=== PATIENT | female | born 1950 | race Caucasian/White ===

== ENCOUNTER 2017-08-11 06:06 | Day surgery (SDC) | payer OTHER, MEDICAID ==
[~2017-08-11] VITALS: Ht 154.9 cm; Wt 60.8 kg
[2017-08-11] MEDS ORDERED: LIDOCAINE 2% 100 MG/5 ML UJET TP ONE (07:30)
[2017-08-11] MEDS ORDERED: CALCIUM (08:05)
[2017-08-11] MEDS ORDERED: fentaNYL 0.05 MG/ML VIAL ONE (08:48)
[2017-08-11] MEDS ORDERED: MIDAZOLAM 2 MG/2 ML VIAL ONE (08:53)
[2017-08-11] MEDS ORDERED: MORPHINE SULFATE 2 MG/ML SYR IVP PRN (09:20)
[2017-08-11] MEDS ORDERED: MORPHINE SULFATE 2 MG/ML SYR IVP ONE (09:30)
[2017-08-11] MEDS ORDERED: fentaNYL 0.05 MG/ML VIAL IVP ONE (09:45)
[2017-08-11] MEDS ORDERED: [UNRECOGNIZED DRUG - OTHER] (11:04)
[2017-08-11] MEDS ORDERED: SYN.05 PO (11:04)
[2017-08-11] MEDS ORDERED: [UNRECOGNIZED DRUG - OTHER] (11:04)
[2017-08-11] MEDS ORDERED: PROP10TA28 PO (11:04)
== END 2017-08-11 10:28 | disposition home or self-care (01) ==
LOC: MDS 06:06 → MMU 06:25 → MDS 10:28
PROVIDERS: ATTEND Internal Medicine Gastroenterology
DX: K62.5 Hemorrhage of anus and rectum (principal); E11.9 Type 2 diabetes mellitus without complications; E07.9 Disorder of thyroid, unspecified; E66.3 Overweight; Z98.890 Other specified postprocedural states; Z79.899 Other long term (current) drug therapy
CPT/HCPCS: 45398; 82948; J2270; J3010; J2250

== ENCOUNTER 2018-07-19 16:29 | Inpatient (IN) | payer OTHER, MEDICAID ==
[~2018-07-19] VITALS: Ht 154.9 cm; Wt 59.0 kg
[~2018-07-19 16:29] MED LIST: CALCIUM; PROP10TA28 PO; SYN.05 PO; [UNRECOGNIZED DRUG - OTHER]; [UNRECOGNIZED DRUG - OTHER]
[2018-07-19] MEDS ORDERED: NACL 0.9% 1,000 ML IV SCH (16:40)
[2018-07-19 16:48] VITALS: BP 170/59
--- NOTE | 2018-07-19 16:53 | NUR ---
PT AMBULATES TO BED 10
[2018-07-19] MEDS ORDERED: AMLO10TA PO (16:59)
[2018-07-19] MEDS ORDERED: CAPT25TA10 PO (17:00)
--- NOTE | 2018-07-19 17:00 | NUR ---
PT REFERRED BY DR MARQUEZ FOR INTERMITTENT RECTAL BLEED/HEMORRHOIDS X 1 WEEK. PATIENT STATES PAIN OF 0610 AT THIS TIME; VSS; PATIENT POSITIONED FOR COMFORT; HOB ELEVATED; BEDRAILS UP X1; BED DOWN. ER MD MADE AWARE OF PT STATUS.
[2018-07-19] MEDS ORDERED: OMEP20TC12 PO (17:01)
[2018-07-19] MEDS ORDERED: TRAM50TA3 PO (17:04)
[2018-07-19 17:20] LABS: EOSINOPHILS # (AUTO) 0.1 K/uL (0-0.4); EOSINOPHILS % (AUTO) 5.3 % (0.0-4.0); HEMATOCRIT 23.9 % (36-48); HEMOGLOBIN 7.6 g/dL (12.0-16.0); LYMPHOCYTES # (AUTO) 0.2 K/uL (2.5-16.5); LYMPHOCYTES % (AUTO) 6.2 % (20.5-51.1); MEAN CORPUSCULAR HEMOGLOBIN 28 pg (27-31); MEAN CORPUSCULAR HGB CONC 32 g/dL (33-37); MEAN CORPUSCULAR VOLUME 89.1 fL (80-94); MONOCYTES # (AUTO) 0.3 K/uL (0.8-1.0); MONOCYTES % (AUTO) 10.7 % (1.7-9.3); NEUTROPHILS % (AUTO) 76.8 % (42.2-75.2); PLATELET COUNT (AUTO) 54 K/uL (140-450); RED BLOOD CELL COUNT(AUTO) 2.68 MIL/uL (4.20-5.40); RED CELL DISTRIBUTION WIDTH 18.6 % (11.6-13.7); WHITE BLOOD COUNT (AUTO) 2.6 K/uL (4.8-10.8)
[2018-07-19] MEDS ORDERED: FERR325E14 PO (17:27)
[2018-07-19] MEDS ORDERED: INSU100S54 SC (17:27)
[2018-07-19] MEDS ORDERED: CALC-575 PO (17:27)
[2018-07-19] MEDS ORDERED: MULT-1469 PO (17:27)
[2018-07-19] MEDS ORDERED: OSC500 PO (17:27)
[2018-07-19] MEDS ORDERED: LACT10SO60 PO (17:27)
[2018-07-19 17:28] LABS: ANION GAP 10.8 (8-16); CARBON DIOXIDE 28.2 mmol/L (21-32)
[2018-07-19] MEDS ORDERED: LEVEMIR SUBQ (17:31)
[2018-07-19 17:33] LABS: CREATININE 5.8 mg/dL (0.6-1.3)
[2018-07-19 17:34] LABS: PROTHROMBIN TIME 10.5 secs (10.8-13.4)
[2018-07-19 17:36] LABS: ALBUMIN 3.4 g/dL (3.4-5.0); TOTAL BILIRUBIN 0.5 mg/dL (0.0-1.0)
[2018-07-19] MEDS ORDERED: DOCUSATE SODIUM 100 MG GELCAP PO PRN (18:30)
[2018-07-19] MEDS ORDERED: HYDROcodone/APAP 5/325 MG 1 TAB TAB PO PRN (18:30)
[2018-07-19] MEDS ORDERED: ONDANSETRON 4 MG/2 ML VIAL IM/IVP PRN (18:30)
[2018-07-19] MEDS ORDERED: MORPHINE SULFATE 4 MG/ML SYR IVP PRN (18:30)
[2018-07-19] MEDS ORDERED: ZOLPIDEM 5 MG TAB PO PRN (18:30)
[2018-07-19] MEDS ORDERED: ACETAMINOPHEN 325 MG TAB PO PRN (18:30)
[2018-07-19] MEDS ORDERED: LORazepam 2 MG/ML VIAL IM/IVP PRN (18:30)
--- NOTE | 2018-07-19 18:30 | NUR ---
Patient will be admitted to care of DR. HINES. Admited to TELE. Will go to room 124B. Belongings list completed. Report to SHEREE SALINAS.
--- NOTE | 2018-07-19 18:38 | NUR ---
1828 PT TAKEN TO FLOOR BY ALYCIA ALTAMIRANO AND CIRO
--- NOTE | 2018-07-19 19:35 | NUR ---
RECEIVED PT FROM LUCILLE RN PT DANISH SPEAKER AAOX4 AMBULATES WITH CHEMICAL DEPENDENCY NURSE ON TELMETRY SR HL ON RT WRIST PATENT, MRSA NARES PROTOCOL TAKEN AND SENT TO LAB RELATIVES AT BED SIDE NOT ACTIVE BLEEDIG FROM RECTUM AT THIS TIME INITIAL ASSESSMENT DONE
[2018-07-19 20:00] VITALS: BP 165/65
[2018-07-19] MEDS ORDERED: DEXTROSE 50% 50 ML SYR IVP PRN (20:05)
[2018-07-19 20:59] LABS: AMYLASE 80 U/L (25-115); CHOL/HDL RATIO 2.9 (1-4.5); HDL CHOLESTEROL 60 mg/dL (40-60); LDL (CALC) 95 mg/dL (60-100); LIPASE 240 U/L (73-393); MAGNESIUM 2.6 mg/dL (1.8-2.4); PHOSPHORUS 5.6 mg/dL (2.5-4.9); THYROID STIMULATING HORMONE 7.07 uIU/mL (0.34-3.74); TRIGLYCERIDES 86 mg/dL (30-150)
[2018-07-19] MEDS: DEXT 5% /NACL 0.9% 1,000 ML IV SCH (21:00)
--- NOTE | 2018-07-19 21:30 | NUR ---
BLOOD SUGAR TEST 183 COVERAGE WITH HUMALOG SUBQ ON RT ARM FOLLOW PROTOCOL
[2018-07-19 21:40] LABS: LACTATE DEHYDROGENASE 224 U/L (81-234)
[2018-07-19] MEDS: INSULIN LISPRO SLIDING SCALE 100 UNITS/ML VIAL SUBQ PRN (21:49)
[2018-07-19] MEDS: BLOOD GLUCOSE MONITORING 1 DEV DEV FS SCH (21:56)
[2018-07-19] MEDS: DOCUSATE SODIUM 250 MG GELCAP PO SCH (21:57)
[2018-07-19] MEDS: CAPTOPRIL 25 MG TAB PO SCH (21:57)
[2018-07-19] MEDS: FERROUS SULFATE 325 MG TABEC PO SCH (21:58)
[2018-07-19] MEDS: PROPRANOLOL 20 MG TAB PO SCH (21:59)
[2018-07-19] MEDS: traMADol 50 MG TAB PO SCH (21:59)
[2018-07-19] MEDS ORDERED: FUROSEMIDE 20 MG/2 ML VIAL IVP SCH (23:00)
[2018-07-20] VITALS: BP 143/48
--- NOTE | 2018-07-20 | NUR ---
PT IS NPO NOT DITRESS NOTED REPOSITIONED Q2H NOT DISTRESS NOTED ON TELEMETRY SB
[2018-07-20 04:00] VITALS: BP 144/54
--- NOTE | 2018-07-20 04:00 | NUR ---
SPONGE BATH GIVEN LINEN CHANGED NOT DISTRESS NOTED ON TELMETRY SB
[2018-07-20] MEDS ORDERED: INFLUENZA VIRUS VACCINE QUAD 0.5 ML SYR IMVAC SCH ×2 (06:00→18:05)
[2018-07-20] MEDS: BLOOD GLUCOSE MONITORING 1 DEV DEV FS SCH ×4 (06:03→21:04)
--- NOTE | 2018-07-20 06:05 | NUR ---
PT NPO X MEDS, BLOOD SUGAR TEST 133
[2018-07-20] MEDS: LEVOTHYROXINE 0.05 MG TAB PO SCH (06:19)
[2018-07-20] MEDS ORDERED: PANTOPRAZOLE 40 MG TABEC PO SCH (06:30)
[2018-07-20 06:39] LABS: EOSINOPHILS # (AUTO) 0.2 K/uL (0-0.4); EOSINOPHILS % (AUTO) 6.4 % (0.0-4.0); HEMATOCRIT 22.5 % (36-48); HEMOGLOBIN 7.3 g/dL (12.0-16.0); LYMPHOCYTES # (AUTO) 0.2 K/uL (2.5-16.5); LYMPHOCYTES % (AUTO) 7.3 % (20.5-51.1); MEAN CORPUSCULAR HEMOGLOBIN 29 pg (27-31); MEAN CORPUSCULAR HGB CONC 33 g/dL (33-37); MEAN CORPUSCULAR VOLUME 89.7 fL (80-94); MONOCYTES # (AUTO) 0.3 K/uL (0.8-1.0); MONOCYTES % (AUTO) 13.2 % (1.7-9.3); NEUTROPHILS # (AUTO) 1.9 K/uL (1.8-7.7); NEUTROPHILS % (AUTO) 72.1 % (42.2-75.2); PLATELET COUNT (AUTO) 51 K/uL (140-450); RED CELL DISTRIBUTION WIDTH 18.9 % (11.6-13.7); WHITE BLOOD COUNT (AUTO) 2.6 K/uL (4.8-10.8)
[2018-07-20 06:54] LABS: MAGNESIUM 2.4 mg/dL (1.8-2.4); PHOSPHORUS 6.8 mg/dL (2.5-4.9)
--- NOTE | 2018-07-20 07:26 | NUR ---
REPORT RECEIVED FROM FAN ENGINE ENGINEER NURSE, PT SLEEPING QUIETLY IN BED IN NAD, RESP EVEN UNLABORED, SKIN WARM DRY COLOR WNL, AROUSES EASILY TO VOICE, DENIES PAIN OR DISCOMFORT, PLAN OF CARE REVIEWED, NO NEEDS AT THIS TIME, ALL SAFETY MEASURES IN PLACE, WILL CONTINUE TO MONITOR.
--- NOTE | 2018-07-20 07:40 | NUR ---
DR MEHTA CALLED TO GET PT CONDITION, [place] SQ [id number] ORDER RECEIVED.
[2018-07-20 07:48] LABS: ANION GAP 13.9 (8-16); CARBON DIOXIDE 27.4 mmol/L (21-32); POTASSIUM 4.3 mmol/L (3.5-5.1)
[2018-07-20 08:00] VITALS: BP 146/58
--- NOTE | 2018-07-20 08:00 | NUR ---
DR HINES AND MD TEAM AT BEDSIDE.
[2018-07-20 08:04] LABS: CREATININE 6.6 mg/dL (0.6-1.3)
--- NOTE | 2018-07-20 08:52 | NUR ---
PATIENT HAS BEEN SCREENED AND CATEGORIZED MODERATE NUTRITION RISK. PATIENT WILL BE SEEN WITHIN 3-5 DAYS OF ADMISSION. 07/22/18 07/24/[address]
[2018-07-20] MEDS: DOCUSATE SODIUM 250 MG GELCAP PO SCH ×2 (09:00→21:14)
[2018-07-20] MEDS: FERROUS SULFATE 325 MG TABEC PO SCH ×2 (09:00→21:15)
[2018-07-20] MEDS: PROPRANOLOL 20 MG TAB PO SCH ×2 (09:00→21:14)
[2018-07-20] MEDS ORDERED: LACTULOSE 20 GM/30 ML UDC PO PRN (09:00)
[2018-07-20] MEDS ORDERED: EPOETIN ALFA 10,000 UNITS/ML VIAL SUBQ SCH (09:00)
[2018-07-20] MEDS: traMADol 50 MG TAB PO SCH ×2 (09:02→21:12)
[2018-07-20] MEDS: CAPTOPRIL 25 MG TAB PO SCH ×2 (09:03→21:13)
[2018-07-20] MEDS: amLODIPine 5 MG TAB PO SCH (09:03)
[2018-07-20] MEDS: CALCIUM CARBONATE 500 MG TAB PO SCH (09:03)
[2018-07-20] MEDS: VIT-B COMP/VIT-C/FOLIC ACID 1 TAB PO SCH (09:04)
--- NOTE | 2018-07-20 09:17 | NUR ---
AM MEDS GIVEN, PT JAMES PILLS WELL, PROPRANOLOL HELD FOR DECREASED HR 58. PT DENIES ANY NEEDS, CALL GE WITHIN REACH, SIDE RAILS UP, WILL CONTINUE TO MONITOR. PT AWARE OF NEED FOR URINE SAMPLE. CUP AT BEDSIDE.
[2018-07-20 12:00] VITALS: BP 138/46
[2018-07-20] MEDS: INSULIN LISPRO SLIDING SCALE 100 UNITS/ML VIAL SUBQ PRN ×2 (12:21→21:07)
--- NOTE | 2018-07-20 12:21 | NUR ---
2 UNITS INSULIN GIVEN FOR BS 185. DAUGHTER AT BEDSIDE, DENIES ANY IMMEDIATE NEEDS WILL CONTINUE TO MONITOR
--- NOTE | 2018-07-20 14:14 | NUR ---
PT UP TO BATHROOM WITH MINIMAL ASSIST WITH STEADY GAIT, PT UNABLE TO URINATE AT THIS TIME.
--- NOTE | 2018-07-20 14:33 | NUR ---
AWAITING ON PLATELET TRANSFUSION, UNIT NOT HERE YET PER BLOOD BANK.
--- NOTE | 2018-07-20 14:50 | NUR ---
DR MARQUEZ AT BEDSIDE, PT TO REMAIN NPO, POSSIBLE SURGERY TONIGHT.
--- NOTE | 2018-07-20 15:27 | NUR ---
STRAIGHT CATH WITH 14F FOR URINE SAMPLE, ONLY 4-5ML CLEAR YELLOW URINE COLLECTED AND SENT TO LAB.
[2018-07-20 15:55] LABS: APPEARANCE,URINE CLEAR (CLEAR); BILIRUBIN,URINE NEGATIVE (NEGATIVE); BLOOD, URINE 2+ (NEGATIVE); COLOR,URINE YELLOW (YELLOW); LEUKOCYTE ESTERASE ,URINE 1+ (NEGATIVE); NITRITE, URINE NEGATIVE (NEGATIVE); UGLUCOSE 1+ (NEGATIVE)
[2018-07-20 16:00] VITALS: BP 140/59
[2018-07-20 16:21] LABS: RBC,URINE 3-10 (FEW) /HPF (0-5); WBC,URINE 16-25 (MOD) /HPF (0-5)
[2018-07-20 16:22] LABS: URINE AMORPHOUS URATE 1+ /HPF (None Seen)
--- NOTE | 2018-07-20 17:30 | NUR ---
PLATELET TRANSFUSION STARTED AT THIS TIME, UNIT VERIFIED WITH 2 RNS, WILL MONITOR CLOSELY FOR REACTIONS.
--- NOTE | 2018-07-20 17:45 | NUR ---
NO REACTION NOTED, PLATELET TRANSFUSION CONTINUES.
--- NOTE | 2018-07-20 18:15 | NUR ---
VSS, NO REACTIONS NOTED, WILL CONTINUE WITH TRANSFUSION, DAUGHTER AT BEDSIDE.
--- NOTE | 2018-07-20 19:15 | NUR ---
PLATELET TRANSFUSION COMPLETED, NO S/S OF REACTIONS NOTED, PT JAMES DINNER WELL, NO N/V, REPORTS ONLY OCCASIONAL MINIMAL RECTAL BLEED, NO ACTIVE BLEEDING NOTED AT THIS TIME.
--- NOTE | 2018-07-20 19:22 | NUR ---
REPORT GIVENT O PRIVACY MANAGER NURSE, PT IN STABLE CONDITION.
--- NOTE | 2018-07-20 19:25 | NUR ---
RECEIVED PT FROM JULIENNE RN PT AAOX4 LUXEMBOURGISH SPEAKER AMBULATES WITH ASSISTANCE DENIES ANY PAIN OR DISCOMFORT ON TELEMETRY SR IV ON RT WRIST INFUSING WELL ,DIALISYS ACCESS ONL EFT UA RELATIVES AT BED SIDE INITIAL ASSESSMENT DONE
[2018-07-20 20:00] VITALS: BP 146/53
[2018-07-20] MEDS: DEXT 5% /NACL 0.9% 1,000 ML IV SCH (21:00)
[2018-07-20 21:21] LABS: BASOPHILS % (AUTO) 0.8 % (0.0-2.0); EOSINOPHILS # (AUTO) 0.1 K/uL (0-0.4); EOSINOPHILS % (AUTO) 4.5 % (0.0-4.0); HEMOGLOBIN 7.3 g/dL (12.0-16.0); LYMPHOCYTES # (AUTO) 0.2 K/uL (2.5-16.5); LYMPHOCYTES % (AUTO) 7.3 % (20.5-51.1); MEAN CORPUSCULAR HEMOGLOBIN 29 pg (27-31); MEAN CORPUSCULAR HGB CONC 32 g/dL (33-37); MEAN CORPUSCULAR VOLUME 90.4 fL (80-94); MONOCYTES # (AUTO) 0.3 K/uL (0.8-1.0); MONOCYTES % (AUTO) 10.2 % (1.7-9.3); NEUTROPHILS # (AUTO) 2.4 K/uL (1.8-7.7); NEUTROPHILS % (AUTO) 77.2 % (42.2-75.2); PLATELET COUNT (AUTO) 58 K/uL (140-450); RED BLOOD CELL COUNT(AUTO) 2.55 MIL/uL (4.20-5.40); RED CELL DISTRIBUTION WIDTH 18.7 % (11.6-13.7); WHITE BLOOD COUNT (AUTO) 3.1 K/uL (4.8-10.8)
--- NOTE | 2018-07-20 21:30 | NUR ---
BLOOD SUGAR TEST 278 COVERAGE WIT 6 UNIS SUB Q HUMALOG FOLLOWING [id number]
[2018-07-21] VITALS: BP 148/83
--- NOTE | 2018-07-21 | NUR ---
PT FEEL BETTER STRONG TO AMBULATES TO THE RESTROOM AND SHE HAD ONE BM DENIES ANY BLEEDING OR PAIN
[2018-07-21 04:00] VITALS: BP 141/58
--- NOTE | 2018-07-21 04:00 | NUR ---
SPONGE BATH GIVEN LINEN CHANGED PT COPERATIVE DENIES ANY PAIN OR DISCOMFORT A THIS TIME
[2018-07-21] MEDS: LEVOTHYROXINE 0.05 MG TAB PO SCH (06:33)
[2018-07-21] MEDS: BLOOD GLUCOSE MONITORING 1 DEV DEV FS SCH ×4 (06:34→21:00)
--- NOTE | 2018-07-21 06:34 | NUR ---
PT PETE STINEZ BLOOD SUGAR TEST 142
[2018-07-21 06:39] LABS: BASOPHILS % (AUTO) 1.1 % (0.0-2.0); EOSINOPHILS # (AUTO) 0.2 K/uL (0-0.4); EOSINOPHILS % (AUTO) 6.8 % (0.0-4.0); HEMATOCRIT 23.2 % (36-48); HEMOGLOBIN 7.5 g/dL (12.0-16.0); LYMPHOCYTES # (AUTO) 0.3 K/uL (2.5-16.5); MEAN CORPUSCULAR HEMOGLOBIN 29 pg (27-31); MEAN CORPUSCULAR HGB CONC 32 g/dL (33-37); MEAN CORPUSCULAR VOLUME 89.5 fL (80-94); MONOCYTES # (AUTO) 0.4 K/uL (0.8-1.0); MONOCYTES % (AUTO) 12.6 % (1.7-9.3); NEUTROPHILS # (AUTO) 2.3 K/uL (1.8-7.7); NEUTROPHILS % (AUTO) 71.5 % (42.2-75.2); PLATELET COUNT (AUTO) 61 K/uL (140-450); RED BLOOD CELL COUNT(AUTO) 2.59 MIL/uL (4.20-5.40); RED CELL DISTRIBUTION WIDTH 18.7 % (11.6-13.7); WHITE BLOOD COUNT (AUTO) 3.3 K/uL (4.8-10.8)
[2018-07-21] MEDS ORDERED: cefTRIAXone 1,000 MG VIAL ONE (06:45)
[2018-07-21 06:48] LABS: CARBON DIOXIDE 24.1 mmol/L (21-32); POTASSIUM 5.1 mmol/L (3.5-5.1)
[2018-07-21 06:55] LABS: MAGNESIUM 2.6 mg/dL (1.8-2.4); PHOSPHORUS 7.3 mg/dL (2.5-4.9)
[2018-07-21 07:08] LABS: CREATININE 7.9 mg/dL (0.6-1.3)
[2018-07-21] MEDS ORDERED: LACTULOSE 20 GM/30 ML UDC PO PRN (07:10)
--- NOTE | 2018-07-21 07:22 | NUR ---
REPORT RECEIVED FROM ASSISTANT BRAND MANAGER NURSE, PT SLEEPING QUIETLY IN NAD, RESP EVEN UNLABORED ON RA, SKIN WARM DRY COLOR WNL, PT REMAINS ON LANDING SIGNAL OFFICER, AROUSES EASILY, DENIES PAIN OR DISCOMFORT, POC REVIEWED, ALL SAFETY MEASURES IN PLACE, WILL CONTINUE TO MONITOR.
[2018-07-21 08:00] VITALS: BP 129/57
[2018-07-21 08:23] LABS: T4 (THYROXINE) 8.4 ug/dL (4.5-12.0)
[2018-07-21 08:23] LABS: TRANSFERRIN 203 mg/dL (200-370)
[2018-07-21] MEDS ORDERED: CALCIUM ACETATE 667 MG TAB PO SCH (09:00)
[2018-07-21] MEDS: amLODIPine 5 MG TAB PO SCH (09:00)
[2018-07-21] MEDS: PROPRANOLOL 20 MG TAB PO SCH ×2 (09:00→20:37)
[2018-07-21] MEDS: CAPTOPRIL 25 MG TAB PO SCH ×2 (09:00→20:37)
[2018-07-21] MEDS: VIT-B COMP/VIT-C/FOLIC ACID 1 TAB PO SCH (09:12)
[2018-07-21] MEDS: DOCUSATE SODIUM 250 MG GELCAP PO SCH ×2 (09:12→20:36)
[2018-07-21] MEDS: FERROUS SULFATE 325 MG TABEC PO SCH ×2 (09:12→21:03)
[2018-07-21] MEDS: traMADol 50 MG TAB PO SCH ×2 (09:13→20:37)
[2018-07-21] MEDS: CALCIUM CARBONATE 500 MG TAB PO SCH (09:13)
[2018-07-21] MEDS: FAMOTIDINE 20 MG TAB PO SCH (09:14)
[2018-07-21] MEDS: INSULIN LANTUS 100 UNITS/ML 10 ML VIAL SUBQ SCH (09:15)
--- NOTE | 2018-07-21 10:30 | NUR ---
PT WALKING AROUND HALLWAY WITH PT
[2018-07-21] MEDS: CALCIUM ACETATE 667 MG TAB PO SCH ×2 (11:26→17:14)
[2018-07-21 12:00] VITALS: BP 121/62
[2018-07-21] MEDS: INSULIN LISPRO SLIDING SCALE 100 UNITS/ML VIAL SUBQ PRN ×3 (12:43→21:03)
--- NOTE | 2018-07-21 13:30 | NUR ---
DIALYSIS AT BEDSIDE
[2018-07-21 16:00] VITALS: BP 156/67
[2018-07-21] MEDS: DEXT 5% /NACL 0.9% 1,000 ML IV SCH (16:41)
--- NOTE | 2018-07-21 17:05 | NUR ---
DIALYSIS DONE, 2000 ML TAKEN OUT PER ROBEL DIALYSIS NURSE.
--- NOTE | 2018-07-21 17:15 | NUR ---
20G PIV CLOTTED, UNABLE TO FLUSH, NEW IV 22G STARTED TO RIGHT FA, PT JAMES WELL
--- NOTE | 2018-07-21 19:20 | NUR ---
RECEIVED REPORT FROM AM RN IN BED SLEEPING. WOKE UP EASILY WHEN TOUCHED. AFEBRILE. VITAL SIGNS TAKEN. NO SOB. NO DELOR PER PT. IVF SITE TO RIGHT FOREARM INTACT AND WITH GOOD BLOOD RETURN. HEMODIALYSIS DONE TODAY. LEFT AV SHUNT INTACT DRESSING AND NO NOTED BLEEDING. TELEMETRY MONITORING. CALL LIGHT WITH IN REACH. EXPLAINED TO HER TO USE IT IN CASE SHE NEEDS SOMETHING. BED ALARM ON.
--- NOTE | 2018-07-21 19:25 | NUR ---
REPORT GIVEN TO ASBESTOS BRAKE LINING FINISHER HELPER NURSE, PT IN STABLE CONDITION.
--- NOTE | 2018-07-21 19:50 | NUR ---
DAUGHTER AT BEDSIDE AT THIS TIME. EXPLAINED PLANS OF CARE FOR THE NIGHT WITH HER. DAUGHTER EXPLAINED WELL TO PT. NO COMPLAINTS DONE.
[2018-07-21 20:33] VITALS: BP 175/60
--- NOTE | 2018-07-21 22:00 | NUR ---
PT.S FAMILY MEMBERS IN HERE VISITING. NO COMPLAINTS DONE. PT. IS BEING FED BY VISITORS. PT. EATING WELL AND SMILING. DENIES DOLOR. RE-ORIENTED HER FAMILY MEMBER ABOUT THE USE OF CALL LIGHT AND RE-EXPLAINED TO HER BY FAMILY IN [place]. "OK" .
[2018-07-22 00:26] VITALS: BP 119/65
--- NOTE | 2018-07-22 00:28 | NUR ---
SLEEPING AT THIS TIME. WOKE UP EASILY WHEN VITAL SIGNS WERE TAKEN. DENIES PAIN. "NO DOLOR". NO RESTLESSNESS NOTED. CALL LIGHT WITHIN REACH.
[2018-07-22 04:43] VITALS: BP 160/57
--- NOTE | 2018-07-22 04:45 | NUR ---
LSEPT WELL THIS SHIFT. NO PAIN COMPLAINTS DONE.
[2018-07-22] MEDS: BLOOD GLUCOSE MONITORING 1 DEV DEV FS SCH ×2 (05:21→12:23)
[2018-07-22] MEDS: LEVOTHYROXINE 0.05 MG TAB PO SCH (06:46)
[2018-07-22 07:22] LABS: HEMATOCRIT 24.1 % (36-48); HEMOGLOBIN 7.7 g/dL (12.0-16.0); MEAN CORPUSCULAR HEMOGLOBIN 29 pg (27-31); MEAN CORPUSCULAR HGB CONC 32 g/dL (33-37); MEAN CORPUSCULAR VOLUME 90.1 fL (80-94); PLATELET COUNT (AUTO) 62 K/uL (140-450); RED BLOOD CELL COUNT(AUTO) 2.67 MIL/uL (4.20-5.40); RED CELL DISTRIBUTION WIDTH 17.6 % (11.6-13.7); WHITE BLOOD COUNT (AUTO) 2.6 K/uL (4.8-10.8)
[2018-07-22 07:23] LABS: BASOPHILS % (AUTO) 0.4 % (0.0-2.0); EOSINOPHILS # (AUTO) 0.2 K/uL (0-0.4); EOSINOPHILS % (AUTO) 6.9 % (0.0-4.0); LYMPHOCYTES # (AUTO) 0.3 K/uL (2.5-16.5); LYMPHOCYTES % (AUTO) 12.7 % (20.5-51.1); MONOCYTES # (AUTO) 0.3 K/uL (0.8-1.0); MONOCYTES % (AUTO) 12.9 % (1.7-9.3); NEUTROPHILS # (AUTO) 1.8 K/uL (1.8-7.7); NEUTROPHILS % (AUTO) 67.1 % (42.2-75.2)
--- NOTE | 2018-07-22 07:23 | NUR ---
PT. AWAKE AT THIS TIME. ENDORSED TO THE AM RN FOR CONTINUITY OF CARE. NO COMPLAINTS DONE. SLEPT WELL THIS SHIFT. ON TELEMETRY MONITORING. NEEDS ANTICIPATED AND MET.
--- NOTE | 2018-07-22 07:24 | NUR ---
RECEIVED BEDSIDE REPORT FROM PM SHIFT NURSE. PT AWAKE, VERBAL, RESPIRATIONS EVEN & UNLABORED. CALL LIGHT WITHIN REACH.
[2018-07-22 07:29] LABS: CARBON DIOXIDE 27.8 mmol/L (21-32); POTASSIUM 3.8 mmol/L (3.5-5.1)
[2018-07-22 07:30] LABS: CREATININE 6.1 mg/dL (0.6-1.3)
[2018-07-22 07:39] LABS: MAGNESIUM 2.2 mg/dL (1.8-2.4)
[2018-07-22 08:00] VITALS: BP 171/69
[2018-07-22] MEDS: FERROUS SULFATE 325 MG TABEC PO SCH (08:24)
[2018-07-22] MEDS: CAPTOPRIL 25 MG TAB PO SCH (08:24)
[2018-07-22] MEDS: VIT-B COMP/VIT-C/FOLIC ACID 1 TAB PO SCH (08:24)
[2018-07-22] MEDS: FAMOTIDINE 20 MG TAB PO SCH (08:24)
[2018-07-22] MEDS: PROPRANOLOL 20 MG TAB PO SCH (08:25)
[2018-07-22] MEDS: traMADol 50 MG TAB PO SCH (08:25)
[2018-07-22] MEDS: CALCIUM ACETATE 667 MG TAB PO SCH (08:25)
[2018-07-22] MEDS: CALCIUM CARBONATE 500 MG TAB PO SCH (08:25)
[2018-07-22] MEDS: DOCUSATE SODIUM 250 MG GELCAP PO SCH (08:25)
[2018-07-22] MEDS: amLODIPine 5 MG TAB PO SCH (08:26)
[2018-07-22] MEDS: INSULIN LANTUS 100 UNITS/ML 10 ML VIAL SUBQ SCH (08:28)
--- NOTE | 2018-07-22 09:30 | NUR ---
PT SITTING UP IN BED, ALERT, VERBAL, DENIES ANY PAIN, NO SIGNS OF DISTRESS. RIGHT ARM IV SITE INTACT & ASYMPTOMATIC. CALL LIGHT WITHIN REACH.
--- NOTE | 2018-07-22 11:15 | NUR ---
SPOKE TO LEORA (DAUGHTER) ON THE PHONE RE: DISCHARGE ORDER. PER LEORA, SHE WILL COME TO [facility] REPRESENTATIVE PT VIA PRIVATE CAR. PT SITTING UP IN BED, WATCHING TV, NO SIGNS OF DISTRESS, RESPIRATIONS EVEN & UNLABORED. CALL LIGHT WITHIN REACH.
[2018-07-22] MEDS ORDERED: SULF-58 PO ×2 (11:33→11:44)
[2018-07-22] MEDS: INSULIN LISPRO SLIDING SCALE 100 UNITS/ML VIAL SUBQ PRN (12:17)
--- NOTE | 2018-07-22 12:45 | NUR ---
PT'S DAUGHTER LEORA ARRIVED, WENT OVER DISCHARGE INSTRUCTIONS WITH PT & DAUGHTER. ALL BELONGINGS WITH LEORA. ACCOMPANIED PT IN WHEELCHAIR TO FRONT LOBBY. PT ABLE TO AMB FROM WHEELCHAIR TO CAR WITH STEADY GAIT. PT STABLE UPON DISCHARGE.
== END 2018-07-22 12:45 | disposition home or self-care (01) | DRG 393 ==
LOC: MED 16:29 → MTU 18:04
PROVIDERS: ADMIT General Practice; ATTEND General Practice
PROC: 30233R1 Transfusion of Nonautologous Platelets into Peripheral Vein, Percutaneous Approach (ICD-10-PCS; 2018-07-20)
PROC: 5A1D70Z Performance of Urinary Filtration, Intermittent, Less than 6 Hours Per Day (ICD-10-PCS; principal; 2018-07-21)
PROC: 3E0234Z Introduction of Serum, Toxoid and Vaccine into Muscle, Percutaneous Approach (ICD-10-PCS; 2018-07-21)
DX: K64.9 Unspecified hemorrhoids (principal); N18.6 End stage renal disease; I50.43 Acute on chronic combined systolic (congestive) and diastolic (congestive) heart failure; N17.0 Acute kidney failure with tubular necrosis; N39.0 Urinary tract infection, site not specified; K76.6 Portal hypertension; I13.2 Hypertensive heart and chronic kidney disease with heart failure and with stage 5 chronic kidney disease, or end stage renal disease; D61.818 Other pancytopenia; K21.9 Gastro-esophageal reflux disease without esophagitis; E11.65 Type 2 diabetes mellitus with hyperglycemia; E03.9 Hypothyroidism, unspecified; E83.39 Other disorders of phosphorus metabolism; E83.51 Hypocalcemia; E11.22 Type 2 diabetes mellitus with diabetic chronic kidney disease; K70.30 Alcoholic cirrhosis of liver without ascites; M81.0 Age-related osteoporosis without current pathological fracture; Z23 Encounter for immunization; Z79.4 Long term (current) use of insulin; Z99.2 Dependence on renal dialysis; Z79.899 Other long term (current) drug therapy; Z90.49 Acquired absence of other specified parts of digestive tract; Z83.3 Family history of diabetes mellitus; Z82.49 Family history of ischemic heart disease and other diseases of the circulatory system; Z87.891 Personal history of nicotine dependence
CPT/HCPCS: 36415; 71045; 74018; 76705; 80048; 80053; 81001; 82140; 82150; 82550; 82607; 82746; 82948; 83036; 83540; 83605; 83615; 83690; 83735; 83880; 84100; 84134; 84436; 84443; 85025; 85045; 85610; 85730; 86886; 86900; 86901; 87040; 87081; 87086; 90658; 93005; 99285; C1758; G0482; J0696; J0885; J1815; J1940; J7042; J7060; P9035; Q0092

== ENCOUNTER 2018-11-08 07:22 | Inpatient (IN) | payer OTHER, MEDICAID ==
[~2018-11-08] VITALS: Ht 157.5 cm; Wt 64.4 kg
[~2018-11-08 07:22] MED LIST changes: +AMLO10TA PO; +CALC-575 PO; -CALCIUM; +CAPT25TA10 PO; +FERR325E14 PO; +INSU100S54 SC; +LACT10SO60 PO; +LEVEMIR SUBQ; +MULT-1469 PO; +OMEP20TC12 PO; +OSC500 PO; +SULF-58 PO; +TRAM50TA3 PO; -[UNRECOGNIZED DRUG - OTHER]; -[UNRECOGNIZED DRUG - OTHER]
--- NOTE | 2018-11-08 07:24 | NUR ---
PT BIBA ALS TO BED 10
[2018-11-08 07:25] VITALS: BP 186/81
--- NOTE | 2018-11-08 07:47 | NUR ---
PER [facility] UPON ARRIVAL AT [facility] PT WAS ON CONTINUED CPR AFTER ABOUT ABOUT 2 HOURS ON DIALYSIS AND CPR CONTINUED BY EMS FOR APPROXIMATELY 2 MINUTES. NO MEDICATION GIVEN. PT UNABLE TO ANSWER QUESTION. PT SQUIRMING IN BED AND MOANING. BLOOD PRESSURE ELEVATED. OTHER VITALS WNL. DIALYSIS SHUNT CLAMPED. IV ACCESS ON RIGHT HAND, 20G. BELLY DISTENDED; UNABLE TO VERBALIZE ANY PAIN. HOB ELEVATED; BEDRAILS UP X2; BED DOWN. ER MD MADE AWARE OF PT STATUS. HX; DM, HTN, CHF, CIRRHOSIS, PEPTIC ULCER DZ, DEPRESSION, ANEMIA RX; CAPTORPIL, PROPRANOLOL, AMLOPDIPINE, OMEPRAZOL
[2018-11-08] MEDS ORDERED: MORPHINE SULFATE 4 MG/ML SYR IVP ONE ×2 (08:05→09:55)
--- NOTE | 2018-11-08 08:19 | NUR ---
XRAY AT BEDSIDE
[2018-11-08 08:42] LABS: BASOPHILS % (AUTO) 0.4 % (0.0-2.0); EOSINOPHILS # (AUTO) 0.1 K/uL (0-0.4); EOSINOPHILS % (AUTO) 2.6 % (0.0-4.0); HEMATOCRIT 30.7 % (36-48); HEMOGLOBIN 9.7 g/dL (12.0-16.0); LYMPHOCYTES % (AUTO) 1.2 % (20.5-51.1); MEAN CORPUSCULAR HEMOGLOBIN 29 pg (27-31); MEAN CORPUSCULAR HGB CONC 32 g/dL (33-37); MEAN CORPUSCULAR VOLUME 91.2 fL (80-94); MONOCYTES % (AUTO) 1.2 % (1.7-9.3); NEUTROPHILS # (AUTO) 3.7 K/uL (1.8-7.7); NEUTROPHILS % (AUTO) 94.6 % (42.2-75.2); PLATELET COUNT (AUTO) 59 K/uL (140-450); RED BLOOD CELL COUNT(AUTO) 3.36 MIL/uL (4.20-5.40); RED CELL DISTRIBUTION WIDTH 19.7 % (11.6-13.7); WHITE BLOOD COUNT (AUTO) 3.9 K/uL (4.8-10.8)
[2018-11-08 08:49] LABS: ANION GAP 13.2 (8-16); CARBON DIOXIDE 28.9 mmol/L (21-32); POTASSIUM 4.1 mmol/L (3.5-5.1)
[2018-11-08 08:50] LABS: CREATININE 4.3 mg/dL (0.6-1.3)
[2018-11-08 08:54] LABS: ALBUMIN 3.4 g/dL (3.4-5.0)
[2018-11-08] MEDS ORDERED: ONDANSETRON 4 MG/2 ML VIAL IM/IVP PRN (09:55)
[2018-11-08] MEDS ORDERED: DOCUSATE SODIUM 100 MG GELCAP PO PRN (09:55)
[2018-11-08] MEDS ORDERED: HYDROcodone/APAP 7.5/325 MG 1 TAB PO PRN (09:55)
[2018-11-08] MEDS ORDERED: ACETAMINOPHEN 325 MG TAB PO PRN (09:55)
--- NOTE | 2018-11-08 10:00 | NUR ---
PT COMPLAINING OF CHEST PAIN. ED MD MADE AWARE. TO SEE PT.
[2018-11-08 10:19] LABS: PROTHROMBIN TIME 11.6 secs (10.8-13.4)
[2018-11-08 10:28] LABS: CHOL/HDL RATIO 2.6 (1-4.5); PHOSPHORUS 4.5 mg/dL (2.5-4.9); THYROID STIMULATING HORMONE 3.46 uIU/mL (0.34-3.74)
[2018-11-08] MEDS ORDERED: NACL 0.9% 1,000 ML IV SCH (10:30)
--- NOTE | 2018-11-08 10:32 | NUR ---
PT TAKEN TO TELE FLOOR BY SHEREE BARTON
[2018-11-08 10:40] VITALS: BP 162/66
--- NOTE | 2018-11-08 10:40 | NUR ---
RECEIVED REPORT FROM ED NURSE. PT C/O OF CHEST PAIN IN ED. NO COMPLAINT OF CHEST PAIN ON ARRIVAL TO UNIT. PT IS AAOX3, DAUGHTER AT BEDSIDE. SKIN IS INTACT WITH SCABBED OVER SCRATCHES NOTED ALL AROUND BODY. PT STATES SHE GETS ITCHY DURING DIALYSIS. PT TOO WEAK TO AMBULATE TO BED SO WE TRANSFERED HER OVER. MRSA COLLECTED AND TAKEN TO LAB. VITAL SIGNS STABLE. R HAND 20G INTACT AND PATENT. PT VERY SLEEPY FROM MORPHINE GIVEN IN ED. WILL CONTINUE TO MONITOR PT. BED IN LOW POSITION, CALL LIGHT WITHIN REACH. FALL RISK SIGN POSTED, GOWN ON.
--- NOTE | 2018-11-08 10:46 | NUR ---
Patient will be admitted to care of DR. HINES. Admited to TELE. Will go to room 108B. Belongings list completed. Report to SHEREE.
[2018-11-08] MEDS ORDERED: hydrALAZINE 20 MG/ML VIAL IVP PRN (11:00)
[2018-11-08] MEDS ORDERED: amLODIPine 5 MG TAB PO SCH (11:20)
[2018-11-08] MEDS ORDERED: CALCIUM CARBONATE 500 MG TAB PO SCH (11:22)
[2018-11-08] MEDS ORDERED: LEVOTHYROXINE 0.05 MG TAB PO SCH (11:23)
[2018-11-08 12:00] VITALS: BP 133/51
[2018-11-08] MEDS: BLOOD GLUCOSE MONITORING 1 DEV DEV FS SCH ×3 (12:15→21:22)
[2018-11-08] MEDS: INSULIN LISPRO SLIDING SCALE 100 UNITS/ML VIAL SUBQ PRN (12:31)
--- NOTE | 2018-11-08 12:31 | NUR ---
PT IN BED SLEEPING WITH DAUGHTER AT BEDSIDE. NO SIGNS OF PAIN OR DISTRESS NOTED. WILL CONTINUE TO MONITOR.
[2018-11-08 16:00] VITALS: BP 157/61
[2018-11-08] MEDS: DEXTROSE 50% 50 ML SYR IVP PRN (16:21)
--- NOTE | 2018-11-08 16:29 | NUR ---
PT BLOOD SUGAR READING WAS 57. DEXTROSE 50ML WAS GIVEN PER MD ORDERS. WILL REASSESS IN 15MINS.
--- NOTE | 2018-11-08 16:34 | NUR ---
NOTIFIED OF PT DROP IN SUGAR AND THEN ELEVATION WHEN REASSESSED. PT BS AT 162. DR JONAS SAID TO NOT GIVE ANYTHING AND WAIT TILL PT HAS NEXT MEAL.
--- NOTE | 2018-11-08 18:36 | NUR ---
PT RESTING IN BED. ALL NEEDS MET AT THIS TIME. WILL CONTINUE TO ROUND FREQUENTLY.
--- NOTE | 2018-11-08 19:39 | NUR ---
ENDORSED PT TOT MAT MAN FOR CONTINUITY OF CARE. PT IN STABLE CONDITION AT THIS TIME.
--- NOTE | 2018-11-08 19:40 | NUR ---
RECEIVED REPORT FROM AM SHIFT NO COMPLAINT OF CHEST PAIN PT IS AAOX3, DAUGHTER AT BEDSIDE. SKIN IS INTACT WITH SCABBED OVER SCRATCHES NOTED ALL AROUND BODY. PT STATES SHE GETS ITCHY DURING DIALYSIS. R HAND 20G INTACT AND PATENT. PT VERY SLEEPY . BED IN LOW POSITION, CALL LIGHT WITHIN REACH. FALL RISK PRECAUTION.WILL CONTINUE TO MONITOR PT.
[2018-11-08 20:00] VITALS: BP_SYST 109; BP_SYST 155; BP_DIAS 56; BP_DIAS 69
[2018-11-08] MEDS ORDERED: INSULIN LANTUS 100 UNITS/ML 10 ML VIAL SUBQ SCH ×2 (21:00)
[2018-11-08] MEDS: CAPTOPRIL 25 MG TAB PO SCH (21:00)
--- NOTE | 2018-11-08 21:22 | NUR ---
TOOK BS RESULT 172 MG/DL. PT DID NOT TAKE ANY FOOD ONLY WATER ER DAUGHTER. NO HUMALOG INSULIN NOR LANTUS GIVEN FOR TONIGHT ONLY. DR. YEUNG.
[2018-11-08] MEDS: HYDROCORTISONE 2.5% CRM 30 GM TUBE TP SCH (21:38)
[2018-11-08] MEDS: PROPRANOLOL 20 MG TAB PO SCH (21:39)
--- NOTE | 2018-11-08 21:39 | NUR ---
CAPOTEN NOT GIVEN DUE TO BP= 109/69. FOR DIALYSI. FF UP W/ DIALYSIS NURSE AND SHE SAID SHE WILL BE HERE AT 10'30PM
--- NOTE | 2018-11-08 21:40 | NUR ---
CAPOTEN NOT GIVEN.DR. YEUNG
--- NOTE | 2018-11-08 23:10 | NUR ---
DIALYSIS NURSE ARRIVED, W/ ONGOING DIALYSIS.
[2018-11-08] MEDS: DEXT 5% /NACL 0.9% 1,000 ML IV SCH (23:30)
[2018-11-09] VITALS: BP 155/56
--- NOTE | 2018-11-09 01:50 | NUR ---
DIALYSIS DONE , 2.8 LITERS TAKEN OUT. LAST PB-154/54 AND TEMP=99.5
[2018-11-09 04:00] VITALS: BP 146/54
[2018-11-09] MEDS: BLOOD GLUCOSE MONITORING 1 DEV DEV FS SCH ×4 (06:15→20:38)
[2018-11-09] MEDS: INSULIN LISPRO SLIDING SCALE 100 UNITS/ML VIAL SUBQ PRN ×2 (06:15→12:30)
[2018-11-09] MEDS: LEVOTHYROXINE 0.05 MG TAB PO SCH (06:30)
--- NOTE | 2018-11-09 07:12 | NUR ---
ENDORSED PT TO AM SHIFT PT RESTING IN BED, IN STABLE CONDITION
--- NOTE | 2018-11-09 07:15 | NUR ---
RECEIVED REPORT FROM GAS PLANT DISPATCHER AT BEDSIDE. PT IS AAOX3, SKIN IS INTACT, PT SCRATCHES NOTED ALL AROUND BODY. IV TO R HAND, 20G, INTACT AND PATENT, INFUSING WELL. PT ON TELE. BED IN LOWEST POSITION, CALL LIGHT WITHIN REACH. FALL RISK PRECAUTION. WILL CONTINUE TO MONITOR PT.
[2018-11-09 07:28] LABS: BASOPHILS # (AUTO) 0.1 K/uL (0.00-0.22); BASOPHILS % (AUTO) 1.7 % (0.0-2.0); EOSINOPHILS # (AUTO) 0.2 K/uL (0-0.4); EOSINOPHILS % (AUTO) 6.9 % (0.0-4.0); HEMOGLOBIN 9.6 g/dL (12.0-16.0); LYMPHOCYTES # (AUTO) 0.1 K/uL (2.5-16.5); LYMPHOCYTES % (AUTO) 3.2 % (20.5-51.1); MEAN CORPUSCULAR HEMOGLOBIN 29 pg (27-31); MEAN CORPUSCULAR HGB CONC 32 g/dL (33-37); MEAN CORPUSCULAR VOLUME 90.8 fL (80-94); MONOCYTES # (AUTO) 0.2 K/uL (0.8-1.0); NEUTROPHILS # (AUTO) 2.5 K/uL (1.8-7.7); NEUTROPHILS % (AUTO) 82.2 % (42.2-75.2); PLATELET COUNT (AUTO) 55 K/uL (140-450); RED CELL DISTRIBUTION WIDTH 19.1 % (11.6-13.7); WHITE BLOOD COUNT (AUTO) 3.1 K/uL (4.8-10.8)
[2018-11-09] MEDS ORDERED: PANTOPRAZOLE 40 MG TABEC PO SCH (07:30)
[2018-11-09 08:00] VITALS: BP 146/55
--- NOTE | 2018-11-09 08:12 | NUR ---
PATIENT HAS BEEN SCREENED AND CATEGORIZED MODERATE NUTRITION RISK. PATIENT WILL BE SEEN WITHIN 3-5 DAYS OF ADMISSION. 11/10/18YAJAIRA MEADE RD
[2018-11-09 08:33] LABS: ANION GAP 10.8 (8-16); CARBON DIOXIDE 27.2 mmol/L (21-32); CREATININE 3.8 mg/dL (0.6-1.3)
[2018-11-09] MEDS ORDERED: ALBUTEROL SULFATE/IPRATROPIU 3 ML SOL IH PRN (08:35)
[2018-11-09 08:47] LABS: MAGNESIUM 1.9 mg/dL (1.8-2.4); PHOSPHORUS 3.9 mg/dL (2.5-4.9)
[2018-11-09] MEDS ORDERED: NON-FORMULARY ITEM (Omeprazole (Omeprazole) 1 TAB) PO SCH (09:00)
[2018-11-09] MEDS ORDERED: PROPRANOLOL 20 MG TAB PO SCH (09:00)
[2018-11-09] MEDS: LACTOBACILLUS RHAMNOSUS GG 1 EACH CAP PO SCH (10:29)
[2018-11-09] MEDS: amLODIPine 5 MG TAB PO SCH (10:29)
[2018-11-09] MEDS: VIT-B COMP/VIT-C/FOLIC ACID 1 TAB PO SCH (10:29)
[2018-11-09] MEDS: CAPTOPRIL 25 MG TAB PO SCH ×2 (10:30→20:38)
[2018-11-09] MEDS: HYDROCORTISONE 2.5% CRM 30 GM TUBE TP SCH ×2 (10:30→20:47)
[2018-11-09] MEDS: FERROUS SULFATE 325 MG TABEC PO SCH (10:30)
[2018-11-09] MEDS: PROPRANOLOL 20 MG TAB PO SCH ×2 (10:31→20:39)
[2018-11-09] MEDS: INSULIN LANTUS 100 UNITS/ML 10 ML VIAL SUBQ SCH (10:36)
[2018-11-09 12:00] VITALS: BP 121/53
--- NOTE | 2018-11-09 14:46 | NUR ---
CHECKED SUGAR 47, WILL GIVE D50 AND RECHECK BLOOD SUGAR IN 15MIN.
[2018-11-09] MEDS: DEXTROSE 50% 50 ML SYR IVP PRN (14:55)
[2018-11-09 16:00] VITALS: BP 126/63
--- NOTE | 2018-11-09 18:30 | NUR ---
DR MURCIA SEEN THE PT. PER DR MURCIA, TROP IS DUE TO CHF. WILL ORDER BENGAY FOR CHEST MUSCLE TENDERNESS, AND COLACE FOR CONSTIPATION.
[2018-11-09] MEDS ORDERED: PANTOPRAZOLE 40 MG INJ VIAL IVP SCH (19:00)
--- NOTE | 2018-11-09 19:05 | NUR ---
SPOKE WITH FLEX, MADE HER AWARE PT NEEDS HD FOR TOMORROW AFTERNOON.
--- NOTE | 2018-11-09 19:25 | NUR ---
ENDORSED PT TO RETAIL PRODUCT DEMO SPECIALIST NURSE. PT IN STABLE CONDITION.
--- NOTE | 2018-11-09 19:26 | NUR ---
RECEIVED REPORT FROM AM SHIFT AT BEDSIDE. PT IS AAOX3, SKIN IS INTACT, PT SCRATCHES NOTED ALL AROUND BODY. IV TO R HAND, 20G, INTACT AND PATENT, INFUSING WELL. PT ON TELE. BED IN LOWEST POSITION, CALL LIGHT WITHIN REACH. FALL RISK PRECAUTION. WILL CONTINUE TO MONITOR PT.
[2018-11-09 20:00] VITALS: BP 120/41
[2018-11-09] MEDS: DOCUSATE SODIUM 100 MG GELCAP PO SCH (20:46)
[2018-11-09] MEDS: MENTHOL/METHYL 10%-15% 114 GM TUBE TP PRN (20:47)
--- NOTE | 2018-11-09 21:00 | NUR ---
PT MEDICATED, ABLE TO TOLERATE MEDS. PT WENT BACK TO SLEEP, PT STILL SLEEPY.
[2018-11-09] MEDS: DEXT 5% /NACL 0.9% 1,000 ML IV SCH (21:25)
--- NOTE | 2018-11-09 22:10 | NUR ---
BLOOD SUGAR TAKEN RESULT WAS 124MG/DL. NO COVERAGE NEEDED. PT IN STABLE CONDITION
[2018-11-10] VITALS: BP 118/47
--- NOTE | 2018-11-10 02:00 | NUR ---
PT STILL POOR APPETITE, GIVEN DIABETIC SNACK. BUT FOOD LEFT UNEATEN. JUST 2 SMALL BITES SEEN
[2018-11-10 04:00] VITALS: BP 132/52
[2018-11-10] MEDS: BLOOD GLUCOSE MONITORING 1 DEV DEV FS SCH ×4 (05:58→20:47)
--- NOTE | 2018-11-10 05:59 | NUR ---
TAKEN BLOOD JJEUW=[id number], NO COVERAGE GIVEN DR. GONZALEZ AWARE. HAS HX OF HYPOGLYCEMIA.
[2018-11-10] MEDS: LEVOTHYROXINE 0.05 MG TAB PO SCH (07:28)
--- NOTE | 2018-11-10 07:29 | NUR ---
ENDORSED TO AM SHIFT FOR CONTINUITY OF CARE. PT IN STABLE CONDITION
--- NOTE | 2018-11-10 07:30 | NUR ---
RECEIVED BEDSIDE REPORT FROM RODDING MACHINE TENDER NURSE. PATIENT AAOX3. PATIENT ON 2 L NC, NO DISTRESS NOTED. SKIN INTACT, EXCEPT HEMORRHOIDS ON BUTTOCKS. PATIENT UNABLE TO AMBULATE. PATIENT INCONTINENT. IV ON R HAND 20 G INFUSING D5 LR AT 20, IV CLEAN DRY AND INTACT. PATIENT ON TELE MONITOR AND STANDARD PRECAUTIONS. BED IN LOW POSITION, CALL LIGHT WITHIN REACH. WILL CONTINUE TO MONITOR.
[2018-11-10 07:38] LABS: ANION GAP 10.1 (8-16); CARBON DIOXIDE 25.4 mmol/L (21-32); POTASSIUM 4.5 mmol/L (3.5-5.1)
[2018-11-10 07:48] LABS: MAGNESIUM 2.1 mg/dL (1.8-2.4); PHOSPHORUS 5.6 mg/dL (2.5-4.9)
--- NOTE | 2018-11-10 07:58 | NUR ---
ENDORSED TO AM SHIFT FOR CONTINUITY OF CARE. PT IN STABLE CONDITION Addendum: 11/10/18 at 0759 by Diane Richardson RN WRONG TIME. PLS DISCARD
[2018-11-10 08:00] VITALS: BP 118/52
[2018-11-10 08:36] LABS: CREATININE 6.2 mg/dL (0.6-1.3)
[2018-11-10] MEDS ORDERED: ALUMINUM HYD/MAG/SIMETHICONE 30 ML UDC PO PRN (08:40)
[2018-11-10 08:43] LABS: BASOPHILS % (AUTO) 1.3 % (0.0-2.0); EOSINOPHILS # (AUTO) 0.4 K/uL (0-0.4); EOSINOPHILS % (AUTO) 11.2 % (0.0-4.0); HEMATOCRIT 29.3 % (36-48); HEMOGLOBIN 9.3 g/dL (12.0-16.0); LYMPHOCYTES # (AUTO) 0.3 K/uL (2.5-16.5); LYMPHOCYTES % (AUTO) 7.8 % (20.5-51.1); MEAN CORPUSCULAR HEMOGLOBIN 29 pg (27-31); MEAN CORPUSCULAR HGB CONC 32 g/dL (33-37); MEAN CORPUSCULAR VOLUME 90.8 fL (80-94); MONOCYTES # (AUTO) 0.3 K/uL (0.8-1.0); NEUTROPHILS # (AUTO) 2.3 K/uL (1.8-7.7); NEUTROPHILS % (AUTO) 70.7 % (42.2-75.2); PLATELET COUNT (AUTO) 55 K/uL (140-450); RED BLOOD CELL COUNT(AUTO) 3.23 MIL/uL (4.20-5.40); RED CELL DISTRIBUTION WIDTH 19.4 % (11.6-13.7); WHITE BLOOD COUNT (AUTO) 3.2 K/uL (4.8-10.8)
[2018-11-10] MEDS: INSULIN LANTUS 100 UNITS/ML 10 ML VIAL SUBQ SCH (09:00)
[2018-11-10] MEDS: amLODIPine 5 MG TAB PO SCH (09:00)
[2018-11-10] MEDS ORDERED: PANTOPRAZOLE 40 MG INJ VIAL IVP SCH (09:00)
[2018-11-10] MEDS ORDERED: HYOSCYAMINE 0.125 MG TAB PO SCH (09:00)
[2018-11-10] MEDS ORDERED: LIDOCAINE VISCOUS 2% 20 ML UDC PO SCH (09:15)
[2018-11-10] MEDS: MORPHINE SULFATE 2 MG/ML SYR IVP PRN ×2 (10:22→19:38)
[2018-11-10] MEDS: VIT-B COMP/VIT-C/FOLIC ACID 1 TAB PO SCH (10:27)
[2018-11-10] MEDS: DOCUSATE SODIUM 100 MG GELCAP PO SCH ×2 (10:27→20:38)
[2018-11-10] MEDS: CAPTOPRIL 25 MG TAB PO SCH ×2 (10:27→10:33)
[2018-11-10] MEDS: FAMOTIDINE 20 MG TAB PO SCH (10:27)
[2018-11-10] MEDS: FERROUS SULFATE 325 MG TABEC PO SCH (10:28)
[2018-11-10] MEDS: LACTOBACILLUS RHAMNOSUS GG 1 EACH CAP PO SCH (10:29)
[2018-11-10] MEDS: HYDROCORTISONE 2.5% CRM 30 GM TUBE TP SCH ×2 (10:31→20:42)
--- NOTE | 2018-11-10 10:45 | NUR ---
PATIENT HAVING DIALYSIS AT THIS TIME. ADMINISTERED SCHEDULED MEDS. HELD BP MEDS D/T DIALYSIS. PATIENT TOLERATED WELL. WILL CONTINUE TO MONITOR.
[2018-11-10 12:00] VITALS: BP 125/56
[2018-11-10] MEDS: INSULIN LISPRO SLIDING SCALE 100 UNITS/ML VIAL SUBQ PRN ×2 (13:15→17:01)
--- NOTE | 2018-11-10 14:59 | NUR ---
PATIENT SLEEPING. NO DISTRESS NOTED, ON 2 L NC. WILL CONTINUE TO MONITOR.
--- NOTE | 2018-11-10 15:30 | NUR ---
ASSUMED CARE FROM RADHA. PT AWAKE, IN STABLE CONDITION. NO SOB NOTED. NO COMPLAINTS MADE. Addendum: 11/10/18 at 1905 by Omaira Beverly RN DISREGARD ABOVE NOTES, WRONG TIME.
[2018-11-10 16:00] VITALS: BP 148/50
--- NOTE | 2018-11-10 16:30 | NUR ---
ASSUMED CARE FROM RADHA. PT AWAKE, IN STABLE CONDITION. NO SOB NOTED. NO COMPLAINTS MADE.
--- NOTE | 2018-11-10 17:30 | NUR ---
OT RESTING. NO SOB NOTED. NO SIGNS OF PAIN.
--- NOTE | 2018-11-10 19:15 | NUR ---
RECEIVED ENDORSEMENT FROM AM SHEREE PERDUE; PATIENT A&Ox3, ABLE TO MAKE NEEDS KNOWN. GREENLANDIC SPEAKING. PATIENT ON O2 RUNNING AT 2LPM VIA NASAL CANNULA, NO SOB OR DISTRESS NOTED. SKIN INTACT; HEMORRHOIDS NOTED ON BUTTOCKS. PATIENT UNABLE TO AMBULATE. PATIENT INCONTINENT. IV ON RIGHT HAND, 20 GAUGE, INFUSING D5LR AT 20mL/HR, IV CLEAN DRY AND INTACT. PATIENT ON TELE MONITOR AND STANDARD PRECAUTIONS. BED IN THE LOWEST POSITION, CALL LIGHT WITHIN REACH. INITIAL ASSESSMENT DONE, ALL SAFETY PRECAUTIONS MET. WILL CONTINUE TO MONITOR.
--- NOTE | 2018-11-10 19:41 | NUR ---
PT AWAKE,TALKING TO SON AT THE BEDSIDE. NO SOB NOTED. NO COMPLAINTS MADE. WILL ENDORSE TO NEXT SHIFT NURSE FOR CONTINUITY OF CARE.
[2018-11-10 20:00] VITALS: BP 154/54
--- NOTE | 2018-11-10 20:07 | NUR ---
DUE MEDS ADMINISTERED, NO S/SX OF DISTRESS NOTED. TOLERATED WELL. WILL CONTINUE TO MONITOR.
[2018-11-10] MEDS: CALCIUM CARB/VIT-D 500 MG/200 IU 1 TAB PO SCH (20:39)
[2018-11-10] MEDS: DEXT 5% /NACL 0.9% 1,000 ML IV SCH (21:25)
--- NOTE | 2018-11-10 23:01 | NUR ---
ROUNDS MADE. PATIENT ASLEEP, EYES CLOSED, VISIBLE CHEST RISE AND FALL NOTED. WILL CONTINUE TO MONITOR.
[2018-11-11] VITALS (7 sets, daily range): BP systolic 133–158; BP diastolic 52–60
[2018-11-11] MEDS: MORPHINE SULFATE 2 MG/ML SYR IVP PRN ×2 (00:52→20:22)
[2018-11-11] MEDS: BLOOD GLUCOSE MONITORING 1 DEV DEV FS SCH ×4 (06:17→20:26)
[2018-11-11] MEDS: LEVOTHYROXINE 0.05 MG TAB PO SCH (06:32)
[2018-11-11 06:50] LABS: BASOPHILS % (AUTO) 1.1 % (0.0-2.0); EOSINOPHILS # (AUTO) 0.4 K/uL (0-0.4); HEMATOCRIT 29.3 % (36-48); HEMOGLOBIN 9.3 g/dL (12.0-16.0); LYMPHOCYTES # (AUTO) 0.3 K/uL (2.5-16.5); MEAN CORPUSCULAR HEMOGLOBIN 29 pg (27-31); MEAN CORPUSCULAR HGB CONC 32 g/dL (33-37); MEAN CORPUSCULAR VOLUME 89.4 fL (80-94); MONOCYTES # (AUTO) 0.4 K/uL (0.8-1.0); MONOCYTES % (AUTO) 11.9 % (1.7-9.3); NEUTROPHILS # (AUTO) 2.1 K/uL (1.8-7.7); PLATELET COUNT (AUTO) 57 K/uL (140-450); RED BLOOD CELL COUNT(AUTO) 3.27 MIL/uL (4.20-5.40); RED CELL DISTRIBUTION WIDTH 18.5 % (11.6-13.7); WHITE BLOOD COUNT (AUTO) 3.2 K/uL (4.8-10.8)
--- NOTE | 2018-11-11 07:10 | NUR ---
ENDORSED PATIENT TO AM RN JOSE MARTIN; PATIENT IN STABLE CONDITION.
--- NOTE | 2018-11-11 07:11 | NUR ---
Received report from pm nurse. Pt sitting up in chair. No signs of distress, respirations even & nonlabored. Call light within reach.
--- NOTE | 2018-11-11 07:33 | NUR ---
pt so2 on 2lpm nc 100% decreased pt to r/a will continue to monitor
[2018-11-11 08:18] LABS: ANION GAP 10.9 (8-16); POTASSIUM 3.9 mmol/L (3.5-5.1)
[2018-11-11 08:20] LABS: CREATININE 5.3 mg/dL (0.6-1.3)
[2018-11-11] MEDS: CAPTOPRIL 25 MG TAB PO SCH ×2 (08:56→20:20)
[2018-11-11] MEDS: DOCUSATE SODIUM 100 MG GELCAP PO SCH ×2 (08:56→20:20)
[2018-11-11] MEDS: PROPRANOLOL 20 MG TAB PO SCH ×2 (08:57→20:22)
[2018-11-11] MEDS: FAMOTIDINE 20 MG TAB PO SCH (08:57)
[2018-11-11] MEDS: FERROUS SULFATE 325 MG TABEC PO SCH (08:57)
[2018-11-11] MEDS: LACTOBACILLUS RHAMNOSUS GG 1 EACH CAP PO SCH (08:57)
[2018-11-11] MEDS: CALCIUM CARB/VIT-D 500 MG/200 IU 1 TAB PO SCH ×2 (08:58→20:19)
[2018-11-11] MEDS: amLODIPine 5 MG TAB PO SCH (08:58)
[2018-11-11] MEDS: VIT-B COMP/VIT-C/FOLIC ACID 1 TAB PO SCH (08:58)
[2018-11-11] MEDS ORDERED: EPOETIN ALFA 10,000 UNITS/ML VIAL SUBQ SCH (09:00)
[2018-11-11] MEDS: INSULIN LANTUS 100 UNITS/ML 10 ML VIAL SUBQ SCH (09:04)
[2018-11-11] MEDS: HYDROCORTISONE 2.5% CRM 30 GM TUBE TP SCH ×2 (09:39→20:21)
[2018-11-11] MEDS: LORazepam 0.5 MG TAB PO PRN ×2 (11:02→23:53)
--- NOTE | 2018-11-11 11:02 | NUR ---
Pt c/o feeling SOB with tightness to chest. Pt sitting up at edge of bed, assisted to high fowlers position. Vital signs obtained. Pt observed to be generally anxious. Instructed on deep breathing exercise; able to return demonstrate. Reassurance provided. Lorazepam administered. RN remains at bedside for monitoring. Addendum: 11/11/18 at 1508 by Olivia Romero RN Amended: Links added. Addendum: 11/11/18 at 1517 by Olivia Romero RN Addendum: Pt requests to resume O2. Nasal cannula applies with O2 @ 2Lpm for comfort. Will continue to monitor.
--- NOTE | 2018-11-11 11:20 | NUR ---
Pt verbalized feeling better. No signs of distress, respirations even & nonlabored, FLACC 0. Call light within reach. Right hand IV intact & asymptomatic.
[2018-11-11] MEDS: HYOSCYAMINE 0.125 MG TAB PO SCH ×3 (11:40→20:20)
--- NOTE | 2018-11-11 12:10 | NUR ---
Dr Giron at bedside assessing pt.
[2018-11-11] MEDS: INSULIN LISPRO SLIDING SCALE 100 UNITS/ML VIAL SUBQ PRN (12:32)
--- NOTE | 2018-11-11 14:03 | NUR ---
11/11/18 RD INITIAL ASSESSMENT COMPLETED PLEASE REFER TO NUTRITION ASSESSMENT UNDER CARE ACTIVITY FOR ESTIMATED NUTRITIONAL NEEDS. 1. [facility]OMMEND [facility]. [facility] REVIEWED RENAL DIET NUTRITION THERAPY 3. RD TO FOLLOW UP ON ADEQUATE PO INTAKE 4. RD TO FOLLOW-UP 3-5 DAYS, MODERATE RISK YAJAIRA MEADE, RD
--- NOTE | 2018-11-11 14:22 | NUR ---
Audio Operator Note: I faxed inquiry to [facility]. I called and spoke with Obed at [facility] . Per Obed, they can accept patient tomorrow 11/12/18, room 101A, accepting physician is .
--- NOTE | 2018-11-11 14:55 | NUR ---
Elva Lozano (dialysis nurse) in unit, notified of Dr East order for hemodialysis tomorrow. Order read back & verified.
--- NOTE | 2018-11-11 17:34 | NUR ---
Pt sitting up in bed, watching TV. Daughter Reema at bedside visiting. Pt interacting appropriately, no signs of distress, no c/o discomfort. Right hand iv intact & asymptomatic. Call light within reach.
--- NOTE | 2018-11-11 19:15 | NUR ---
Report given to pm nurse Dariana.
--- NOTE | 2018-11-11 19:40 | NUR ---
PATIENT IS AWAKE, ALERT, RESPIRATION EVEN AND UNLABOR ON O2 2L VIA NC. DENIES PAIN AND DISCOMFORT. IV IS INTACT AND PATENT. SKIN IS DRY AND WARM. PLAN OF CARE WAS DISCUSS. BED IS IN LOW POSITION. CALL LIGHT WITHIN REACH.
--- NOTE | 2018-11-11 20:20 | NUR ---
PATIENT IS AWAKE, ALERT, RESPIRATION EVEN AND UNLABORED ON 2L OF O2 VIA NC. COMPLAIN OF PAIN 10/10 GENERALIZED BODY ACHE. VITAL SIGNS WITHIN THE NORMAL RANGE. MEDS WERE GIVEN PER ORDERED. FAMILY AT BEDSIDE. CALL LIGHT WITHIN REACH.
--- NOTE | 2018-11-11 23:53 | NUR ---
PATIENT IS AGITATED, CRYING, RESTLESS, PRN ATIVAN PER ORDERED ADMINISTERED. PATIENT RESTING ON CHAIR. NO DISTRESS NOTED. CALL LIGHT WITHIN REACH.
[2018-11-12] VITALS: BP 138/64
[2018-11-12] MEDS: MENTHOL/METHYL 10%-15% 114 GM TUBE TP PRN (00:01)
[2018-11-12] MEDS: HYOSCYAMINE 0.125 MG TAB PO SCH ×4 (00:09→12:11)
[2018-11-12] MEDS: MORPHINE SULFATE 2 MG/ML SYR IVP PRN ×3 (00:26→12:11)
--- NOTE | 2018-11-12 00:26 | NUR ---
PATIENT IS MOANING OF PAIN. IV SITE INFILTRATED. NEW IV SITE INSERTED IN THE RIGHT HAND 24 G. PRN PAIN MEDS GIVEN. CALL LIGHT WITHIN REACH.
[2018-11-12] MEDS: DEXT 5% /NACL 0.9% 1,000 ML IV SCH (00:46)
--- NOTE | 2018-11-12 01:57 | NUR ---
PATIENT IS SLEEPING RESPIRATION EVEN AND UNLABORED ON O2 2L VIA NC. NO DISTRESS NOTED AT THIS TIME. CALL LIGHT WITHIN REACH.
[2018-11-12 04:00] VITALS: BP 139/52
--- NOTE | 2018-11-12 04:30 | NUR ---
PATIENT IS COMPLAINING OF PAIN 10/10. PRN PAIN MED AND ORDER MEDS WERE GIVEN. VITALS WITHIN THE NORMAL RANGE. CALL LIGHT WITHIN REACH.
[2018-11-12] MEDS: LEVOTHYROXINE 0.05 MG TAB PO SCH (06:04)
[2018-11-12] MEDS: BLOOD GLUCOSE MONITORING 1 DEV DEV FS SCH ×2 (06:17→11:30)
[2018-11-12 06:19] LABS: HEPATITIS A ANTIBODY IGM Negative (Negative); HEPATITIS B CORE AB TOTAL Negative (Negative); HEPATITIS B SURFACE ANTIBODY Reactive (.); HEPATITIS B SURFACE ANTIGEN Negative (Negative)
[2018-11-12 06:41] LABS: BASOPHILS % (AUTO) 1.2 % (0.0-2.0); EOSINOPHILS # (AUTO) 0.4 K/uL (0-0.4); EOSINOPHILS % (AUTO) 10.7 % (0.0-4.0); HEMATOCRIT 28.1 % (36-48); LYMPHOCYTES # (AUTO) 0.3 K/uL (2.5-16.5); LYMPHOCYTES % (AUTO) 9.1 % (20.5-51.1); MEAN CORPUSCULAR HEMOGLOBIN 29 pg (27-31); MEAN CORPUSCULAR HGB CONC 32 g/dL (33-37); MONOCYTES # (AUTO) 0.4 K/uL (0.8-1.0); MONOCYTES % (AUTO) 10.1 % (1.7-9.3); NEUTROPHILS # (AUTO) 2.5 K/uL (1.8-7.7); NEUTROPHILS % (AUTO) 68.9 % (42.2-75.2); PLATELET COUNT (AUTO) 62 K/uL (140-450); RED BLOOD CELL COUNT(AUTO) 3.16 MIL/uL (4.20-5.40); RED CELL DISTRIBUTION WIDTH 18.8 % (11.6-13.7); WHITE BLOOD COUNT (AUTO) 3.6 K/uL (4.8-10.8)
[2018-11-12 06:47] LABS: ANION GAP 12.6 (8-16); CARBON DIOXIDE 27.7 mmol/L (21-32); POTASSIUM 4.3 mmol/L (3.5-5.1)
[2018-11-12 07:14] LABS: CREATININE 7.3 mg/dL (0.6-1.3)
--- NOTE | 2018-11-12 07:14 | NUR ---
CRITICAL RESULT: CREAT 7.3. DIALYSIS SCHEDULED FOR THIS MORNING.
--- NOTE | 2018-11-12 07:20 | NUR ---
ENDORSED PATIENT TO JUSTIN NURSE FOR CONTINUITY OF CARE. PATIENT IS STABLE AT THIS TIME.
--- NOTE | 2018-11-12 07:21 | NUR ---
RECEIVED REPORT FROM WATER FABRICATOR OPERATOR NURSE. PT IN STABLE CONDITION. RESPIRATIONS EVEN AND UNLABORED. IV INTACT. SAFETY MEASURES IN PLACE. BED IN LOW POSITION. BED ALARM ON. CALL LIGHT AT BEDSIDE. WILL CONTINUE TO MONITOR.
[2018-11-12 08:00] VITALS: BP 150/61
--- NOTE | 2018-11-12 08:00 | NUR ---
DIALYSIS IN PROCESS AT THIS TIME. PT TOLERATING WELL.
[2018-11-12] MEDS: FAMOTIDINE 20 MG TAB PO SCH (09:00)
[2018-11-12] MEDS: FERROUS SULFATE 325 MG TABEC PO SCH (09:00)
[2018-11-12] MEDS: LACTOBACILLUS RHAMNOSUS GG 1 EACH CAP PO SCH (09:00)
[2018-11-12] MEDS: CAPTOPRIL 25 MG TAB PO SCH (09:00)
[2018-11-12] MEDS: amLODIPine 5 MG TAB PO SCH (09:00)
[2018-11-12] MEDS: VIT-B COMP/VIT-C/FOLIC ACID 1 TAB PO SCH (09:00)
[2018-11-12] MEDS: PROPRANOLOL 20 MG TAB PO SCH (09:00)
--- NOTE | 2018-11-12 09:00 | NUR ---
P.T. NOTES UNABLE TO SEE FOR P.T. SERVICES DUE TO PATIENT IS UNDERGOING HEMO DIALYSIS AT THIS TIME. PLAN: WE'LL FOLLOW UP ON NEXT SCHEDULED VISIT AND TO CONTINUE PER PLAN OF CARE IF SHE REMAINS IN THIS HOSPITAL.
[2018-11-12] MEDS: CALCIUM CARB/VIT-D 500 MG/200 IU 1 TAB PO SCH (09:01)
[2018-11-12] MEDS: DOCUSATE SODIUM 100 MG GELCAP PO SCH (09:01)
[2018-11-12] MEDS: INSULIN LANTUS 100 UNITS/ML 10 ML VIAL SUBQ SCH (09:03)
[2018-11-12] MEDS: HYDROCORTISONE 2.5% CRM 30 GM TUBE TP SCH (09:08)
--- NOTE | 2018-11-12 09:15 | NUR ---
GAVE ORDERED DUE MEDICATIONS AT THIS TIME. PT TOLERATED WELL. WILL CONTINUE TO MONITOR.
[2018-11-12 12:00] VITALS: BP 163/56
--- NOTE | 2018-11-12 12:00 | NUR ---
CALLED ADELINE YADIRA (DAUGHTER [place]) AT TO INFORM HER OF TRANSPORT TO [facility]. PT WILL BE TRANSPORTED BY FAMILY TO [facility]. ALL QUESTIONS ANSWERED AT THIS TIME.
[2018-11-12] MEDS ORDERED: DOCU-299 PO (12:09)
[2018-11-12] MEDS ORDERED: CALC-55 PO (12:09)
[2018-11-12] MEDS ORDERED: PROC10I SUBQ (12:09)
[2018-11-12] MEDS ORDERED: PROP20TA29 PO (12:09)
[2018-11-12] MEDS ORDERED: FAMO20TA13 PO (12:09)
[2018-11-12] MEDS ORDERED: HYD2.5C TP (12:09)
[2018-11-12] MEDS ORDERED: HUMSLIDE SUBQ (12:09)
--- NOTE | 2018-11-12 12:30 | NUR ---
GRAND DAUGHTER LEORA ARRIVED TO TAKE PT TO [facility] AT TIME OF DISCHARGE. LEORA INFORMED HER AUNT SANGITA MAY OF DISCHARGE TIME AROUND 2PM AT THIS TIME.
[2018-11-12] MEDS ORDERED: DICYCLOMINE HCL LIQUID 10 MG/5 ML UDC PO SCH (13:00)
[2018-11-12] MEDS ORDERED: ALUMINUM HYD/MAG/SIMETHICONE 30 ML UDC PO SCH (13:00)
[2018-11-12] MEDS ORDERED: LIDOCAINE VISCOUS 2% 20 ML UDC PO SCH (13:00)
[2018-11-12] MEDS ORDERED: SIMETHICONE 80 MG TAB.CHEW PO SCH (13:00)
--- NOTE | 2018-11-12 13:00 | NUR ---
SIMETHACONE NOT GIVEN DUE TO GI COCKTAIL ORDERED AT THIS TIME. PT TOLERATED WELL. WILL CONTINUE TO MONITOR.
[2018-11-12] MEDS: INSULIN LISPRO SLIDING SCALE 100 UNITS/ML VIAL SUBQ PRN (13:37)
--- NOTE | 2018-11-12 14:15 | NUR ---
GAVE DISCHARGE INSTRUCTIONS AND ANSWERED ALL QUESTIONS AT THIS TIME. PT VERBALIZED UNDERSTANDING OF INSTRUCTIONS. IV REMOVED, LUMEN INTACT. ID BAND REMOVED. PT WHEELED TO LOBBY IN WHEELCHAIR WHERE FAMILY MEMBER LEORA WAS WAITING WITH VEHICLE. PT IN STABLE CONDITION.
== END 2018-11-12 14:15 | DRG 280 ==
LOC: MED 07:22 → MTU 09:57
PROVIDERS: ADMIT General Practice; ATTEND General Practice
DX: I21.A1 Myocardial infarction type 2 (principal); N18.6 End stage renal disease; N17.0 Acute kidney failure with tubular necrosis; I50.43 Acute on chronic combined systolic (congestive) and diastolic (congestive) heart failure; I67.4 Hypertensive encephalopathy; E87.1 Hypo-osmolality and hyponatremia; I13.2 Hypertensive heart and chronic kidney disease with heart failure and with stage 5 chronic kidney disease, or end stage renal disease; D61.818 Other pancytopenia; J98.11 Atelectasis; E11.65 Type 2 diabetes mellitus with hyperglycemia; E11.22 Type 2 diabetes mellitus with diabetic chronic kidney disease; I27.21 Secondary pulmonary arterial hypertension; E83.51 Hypocalcemia; I08.1 Rheumatic disorders of both mitral and tricuspid valves; K74.60 Unspecified cirrhosis of liver; E03.9 Hypothyroidism, unspecified; K21.9 Gastro-esophageal reflux disease without esophagitis; K64.4 Residual hemorrhoidal skin tags; M94.0 Chondrocostal junction syndrome [Tietze]; F41.9 Anxiety disorder, unspecified; D72.819 Decreased white blood cell count, unspecified; M60.9 Myositis, unspecified; M81.0 Age-related osteoporosis without current pathological fracture; D63.8 Anemia in other chronic diseases classified elsewhere; Z99.2 Dependence on renal dialysis; Z79.4 Long term (current) use of insulin; Z79.1 Long term (current) use of non-steroidal anti-inflammatories (NSAID); Z79.899 Other long term (current) drug therapy; Z90.49 Acquired absence of other specified parts of digestive tract; Z98.51 Tubal ligation status; Z83.3 Family history of diabetes mellitus; Z82.49 Family history of ischemic heart disease and other diseases of the circulatory system; Z87.891 Personal history of nicotine dependence
CPT/HCPCS: 36415; 70450; 71045; 71250; 80048; 80053; 82140; 82948; 83036; 83540; 83605; 83690; 83735; 83880; 84100; 84436; 84443; 84479; 84484; 85025; 85610; 85730; 86704; 86706; 86708; 86709; 86803; 87040; 87081; 87340; 90935; 93005; 94640; 96374; 96375; 97116; 97530; 99285; C9113; J0885; J1815; J2270; J7030; J7042; J7620; Q0092

== ENCOUNTER 2019-09-26 14:13 | Inpatient (IN) | payer OTHER, MEDICAID ==
[~2019-09-26] VITALS: Ht 157.5 cm; Wt 66.7 kg
[~2019-09-26 14:13] MED LIST changes: +CALC-55 PO; -CALC-575 PO; +DOCU-299 PO; +FAMO20TA13 PO; +HUMSLIDE SUBQ; +HYD2.5C TP; -INSU100S54 SC; -OMEP20TC12 PO; -OSC500 PO; +PROC10I SUBQ; -PROP10TA28 PO; +PROP20TA29 PO; -SULF-58 PO
--- NOTE | 2019-09-26 14:13 | NUR ---
PT BIBA ALS TO ER BED 10
[2019-09-26 14:19] VITALS: BP 101/52
--- NOTE | 2019-09-26 14:20 | NUR ---
CHINYERE FROM HOME, FAMILY CALLED 911. PER EMS, PT WAS HYPOTENSIVE WITH HR OF 42. VITALS NOW STABLE. PT ONLY C/O HEADACHE 07/21. PT ALERT AND AWAKE. FEET COLD TO TOUCH BILATERALLY. +CMS. UMBILICAL HERNIA. BOWEL SOUNDS ACTIVE IN ALL 4 QUADRANTS. ABDOMEN SOFT AND ROUND. PT HAS DIFFICULTY MAKING URINE, UNKNOWN LAST DIALYSIS. PT POOR HISTORIAN AND NO FAMILY PRESENT AT THIS TIME. EMS STARTED AN EJ TO PTS R SIDE OF NECK 18G AND ADMINISTERED APPROX 250 ML OF NACL PMH- HTN AND DM, DIALYSIS, L ARM SHUNT
--- NOTE | 2019-09-26 14:22 | NUR ---
XRAY AT BEDSIDE
--- NOTE | 2019-09-26 14:30 | NUR ---
EMT AT BEDSIDE FOR EKG
--- NOTE | 2019-09-26 14:30 | NUR ---
LAB AT BEDSIDE
--- NOTE | 2019-09-26 14:44 | NUR ---
PT TO CT VIA EZEQUIEL WITH ASSISTANCE FROM EMT
--- NOTE | 2019-09-26 14:55 | NUR ---
PT RETURNED FROM CT
[2019-09-26 14:56] LABS: BASOPHILS % (AUTO) 1.3 % (0.0-2.0); EOSINOPHILS # (AUTO) 0.2 K/uL (0-0.4); EOSINOPHILS % (AUTO) 5.7 % (0.0-4.0); HEMATOCRIT 29.9 % (36-48); HEMOGLOBIN 9.2 g/dL (12.0-16.0); LYMPHOCYTES # (AUTO) 0.5 K/uL (2.5-16.5); LYMPHOCYTES % (AUTO) 11.5 % (20.5-51.1); MEAN CORPUSCULAR HEMOGLOBIN 28 pg (27-31); MEAN CORPUSCULAR HGB CONC 31 g/dL (33-37); MEAN CORPUSCULAR VOLUME 91.4 fL (80-94); MONOCYTES # (AUTO) 0.2 K/uL (0.8-1.0); NEUTROPHILS % (AUTO) 76.5 % (42.2-75.2); PLATELET COUNT (AUTO) 92 K/uL (140-450); RED BLOOD CELL COUNT(AUTO) 3.27 MIL/uL (4.20-5.40); RED CELL DISTRIBUTION WIDTH 20.7 % (11.6-13.7); WHITE BLOOD COUNT (AUTO) 3.9 K/uL (4.8-10.8)
[2019-09-26] MEDS ORDERED: KETOROLAC 30 MG/ML VIAL IVP ONE (15:05)
[2019-09-26] MEDS ORDERED: GABA300C PO (15:11)
[2019-09-26] MEDS ORDERED: SEVE800T6 PO (15:11)
[2019-09-26 15:21] LABS: PROTHROMBIN TIME 12.1 secs (10.8-13.4)
[2019-09-26 15:24] LABS: ALBUMIN 3.1 g/dL (3.4-5.0); ANION GAP 20.4 (8-16); CARBON DIOXIDE 24.3 mmol/L (21-32); POTASSIUM 4.7 mmol/L (3.5-5.1); TOTAL BILIRUBIN 0.7 mg/dL (0.0-1.0)
[2019-09-26 15:35] LABS: CREATININE 7.4 mg/dL (0.6-1.3)
--- NOTE | 2019-09-26 15:43 | NUR ---
# 14 FR Urinary catheter inserted utilizing sterile technique BY STUDENTS AND INSTRUCTOR. Urine sample collected and sent to lab. Pt tolerated procedure WELL.
--- NOTE | 2019-09-26 16:07 | NUR ---
VS STABLE. PAIN 5/10 FACE SCALE (PT NICARAGUAN SPEAKING) NADR AT THIS TIME
[2019-09-26] MEDS: NACL 0.9% 1,000 ML IV SCH (17:18)
[2019-09-26] MEDS ORDERED: HYDROcodone/APAP 5/325 MG 1 TAB TAB PO PRN (17:20)
[2019-09-26] MEDS ORDERED: ONDANSETRON 4 MG/2 ML VIAL IM/IVP PRN (17:20)
[2019-09-26] MEDS ORDERED: DOCUSATE SODIUM 100 MG GELCAP PO PRN ×2 (17:20→19:20)
[2019-09-26] MEDS ORDERED: ACETAMINOPHEN 325 MG TAB PO PRN (17:20)
--- NOTE | 2019-09-26 17:37 | NUR ---
VS STABLE. PT RESTING IN BED. RR EVEN AND UNLABORED.
--- NOTE | 2019-09-26 17:51 | NUR ---
asked dr nagel if he wanted an antibiotic susie sepsis, states he will order
[2019-09-26] MEDS ORDERED: DEXTROSE 5% 50 ML IV ONE (17:59)
[2019-09-26] MEDS ORDERED: cefTRIAXone 1,000 MG VIAL ONE (17:59)
[2019-09-26 18:00] LABS: MAGNESIUM 3.3 mg/dL (1.8-2.4); PHOSPHORUS 5.6 mg/dL (2.5-4.9)
--- NOTE | 2019-09-26 18:14 | NUR ---
ROCEPHIN IVPB STARTED
--- NOTE | 2019-09-26 18:15 | NUR ---
PER FAMILY AT BEDSIDE, PT USES WALKER TO ASSIST AT HOME
--- NOTE | 2019-09-26 18:17 | NUR ---
DAUGHTERS NUMBER IS [phone]
--- NOTE | 2019-09-26 18:37 | NUR ---
NADR AT THIS TIME
--- NOTE | 2019-09-26 18:39 | NUR ---
NO WOUNDS PRESENT UPON VISUAL EXAMINATION
--- NOTE | 2019-09-26 19:05 | NUR ---
Patient will be admitted to care of DR HINES. Admited to TELE. Will go to room 128B. Belongings list completed AND REVIEWED WITH SHEREE RHOADES. Report to VERONA BENTLEY.
[2019-09-26] MEDS ORDERED: INSULIN LISPRO SLIDING SCALE 100 UNITS/ML VIAL SUBQ PRN (19:20)
[2019-09-26 19:30] VITALS: BP 151/66
--- NOTE | 2019-09-26 20:00 | NUR ---
Admitted from ER TO TELEMETRY UNIT, with chief complaint of LOW BP, HEADACHE, ABD PAIN , 69 y/o ,Female, Cooperative, AWAKE, A/OX4. RESPIRATION EVEN AND UNLABORED. IV SALINE LOCK AT RIGHT IJ G18, PATENT AND INTACT. WITH LEFT AV SHUNT WITH BRUIT AND THRILL. ABLE TO AMBULATE AT HOME WITH A WALKER. NOTED DISCOLORATION ON BILATERAL FEET. HEAD TO TOES ASSESSMENT DONE WITH CHARGE NURSE URIAH, SKIN INTACT. STATED SHE DOES NOT VOID ANYMORE. ON DIALYSIS MWF. DENIES PAIN 0/10. ADMISSION DATA AND PLAN OF CARE DISCUSSED WITH PATIENT WITH HELP OF DISEASE MANAGEMENT NURSE RIOS, #[id number].oriented to call light, bed, phone,television, bathroom, smoking policy, visiting hours, procedures, ID bracelet on. Belongings list checked.
[2019-09-26] MEDS: PROPRANOLOL 20 MG TAB PO SCH (21:00)
[2019-09-26] MEDS: CALCIUM CARB/VIT-D 500 MG/200 IU 1 TAB PO SCH (21:00)
[2019-09-26] MEDS: SEVELAMER CARBONATE 800 MG TAB PO SCH (21:00)
[2019-09-26] MEDS: FERROUS SULFATE 325 MG TABEC PO SCH (21:00)
[2019-09-26] MEDS: CAPTOPRIL 25 MG TAB PO SCH (21:00)
--- NOTE | 2019-09-26 21:06 | NUR ---
DR. WILLAM MEHTA CALLED AND ORDERED DIALYSIS FOR PATIENT TONIGHT.
[2019-09-26] MEDS ORDERED: DEXTROSE 50% 50 ML SYR IVP PRN (21:25)
--- NOTE | 2019-09-26 22:30 | NUR ---
MS MCCORD DIALYSIS NURSE AT THE BEDSIDE, DOING DIALYSIS FOR PATIENT.
[2019-09-26 23:25] LABS: THYROID STIMULATING HORMONE 13.93 uIU/mL (0.34-3.74)
[2019-09-27] VITALS: BP 129/36
[2019-09-27] MEDS ORDERED: LORazepam 2 MG/ML VIAL IVP ONE (00:05)
--- NOTE | 2019-09-27 01:01 | NUR ---
WITH ANXIETY, MEDICATED WITH ATIVAN 0.5 MG. IV BY SHEREE BRYANT.
[2019-09-27] MEDS ORDERED: PIPERACILLIN/TAZOBACTAM 2.25 GM VIAL IV ONE (01:04)
[2019-09-27] MEDS: NACL 0.9% 1,000 ML IV SCH ×2 (01:12→17:18)
[2019-09-27] MEDS: PIPERACILLIN/TAZOBACTAM 2.25 GM in DEXTROSE 5% 50 ML IV SCH ×3 (01:20→21:07)
--- NOTE | 2019-09-27 01:30 | NUR ---
DIALYSIS DONE, ABLE TO TAKE OUT 2 LITERS OF FLUIDS PER DIALYSIS NURSE REPORT. BP - 111/42, HR - 78. HOLD BP MEDICATIONS NOT GIVEN AFTER DIALYSIS, BP IN THE LOW SIDE.
--- NOTE | 2019-09-27 01:35 | NUR ---
BP MEDS NOT GIVEN BP AFTER DIALYSIS IS LOW 111/42.
--- NOTE | 2019-09-27 01:35 | NUR ---
INFORMED DR. GARNER PATIENT AFIB ON TELE, NOTED BY HUEY. WILL ORDER EKG.
--- NOTE | 2019-09-27 02:00 | NUR ---
STILL WITHE SOME ANXIETY, BUT SEEMS TO BE FEELING SLEEPY.
[2019-09-27] MEDS: FERROUS SULFATE 325 MG TABEC PO SCH ×3 (02:05→21:09)
[2019-09-27] MEDS: CALCIUM CARB/VIT-D 500 MG/200 IU 1 TAB PO SCH ×3 (02:06→21:10)
--- NOTE | 2019-09-27 03:10 | NUR ---
ECG DONE BY RT, WITH AFIB STRIP SHOWN TO DR. GARNER. WILL FOLLOW UP WITH ANY NEW ORDER.
--- NOTE | 2019-09-27 03:30 | NUR ---
SLEEPING COMFORTABLY IN BED.
[2019-09-27 04:00] VITALS: BP 127/72
[2019-09-27 06:12] LABS: T4 (THYROXINE) 8.2 ug/dL (4.5-12.0)
[2019-09-27 07:00] LABS: MAGNESIUM 2.3 mg/dL (1.8-2.4); PHOSPHORUS 3.6 mg/dL (2.5-4.9)
[2019-09-27 07:03] LABS: BASOPHILS % (AUTO) 0.8 % (0.0-2.0); EOSINOPHILS # (AUTO) 0.1 K/uL (0-0.4); HEMOGLOBIN 7.7 g/dL (12.0-16.0); LYMPHOCYTES # (AUTO) 0.2 K/uL (2.5-16.5); LYMPHOCYTES % (AUTO) 7.4 % (20.5-51.1); MEAN CORPUSCULAR HEMOGLOBIN 29 pg (27-31); MEAN CORPUSCULAR HGB CONC 32 g/dL (33-37); MEAN CORPUSCULAR VOLUME 88.7 fL (80-94); MONOCYTES # (AUTO) 0.2 K/uL (0.8-1.0); MONOCYTES % (AUTO) 6.9 % (1.7-9.3); NEUTROPHILS % (AUTO) 79.9 % (42.2-75.2); PLATELET COUNT (AUTO) 61 K/uL (140-450); RED CELL DISTRIBUTION WIDTH 19.6 % (11.6-13.7); WHITE BLOOD COUNT (AUTO) 2.6 K/uL (4.8-10.8)
[2019-09-27] MEDS: BLOOD GLUCOSE MONITORING 1 DEV DEV FS SCH ×4 (07:04→21:06)
[2019-09-27] MEDS: INSULIN LISPRO SLIDING SCALE 100 UNITS/ML VIAL SUBQ PRN ×4 (07:05→21:34)
[2019-09-27] MEDS: SEVELAMER CARBONATE 800 MG TAB PO SCH ×3 (07:08→21:11)
--- NOTE | 2019-09-27 07:10 | NUR ---
AWAKE, IN BED, RESPIRATION EVEN AND UNLABORED. NO COMPLAINT OF PAIN 0/10. WILL ENDORSED TO SHIFT NURSE FOR CONTINUITY OF CARE.
[2019-09-27 07:26] LABS: ANION GAP 12.8 (8-16); CARBON DIOXIDE 30.6 mmol/L (21-32); POTASSIUM 3.4 mmol/L (3.5-5.1)
--- NOTE | 2019-09-27 07:30 | NUR ---
RECEIVED REPORT FROM NIGHT NURSE. PT IS AWAKE, ALERT AND ORIENTED X4. IV INTACT AND PATENT TO RIGHT EJ. PT BED IN LOW POSITION, BED ALARM ON. LEFT AV SHUNT IN INTACT TO LEFT ARM. NO S/S OF DISTRESS NOTED. CALL LIGHT WITHIN REACH.
[2019-09-27 08:00] VITALS: BP 124/55
[2019-09-27 08:14] LABS: CREATININE 4.3 mg/dL (0.6-1.3)
--- NOTE | 2019-09-27 08:41 | NUR ---
PATIENT HAS BEEN SCREENED AND CATEGORIZED MODERATE NUTRITION RISK. PATIENT WILL BE SEEN WITHIN 3-5 DAYS OF ADMISSION. 09/29/19 10/01/[address]
[2019-09-27] MEDS ORDERED: LEVOTHYROXINE 0.05 MG TAB PO SCH ×2 (09:00)
[2019-09-27] MEDS: PROPRANOLOL 20 MG TAB PO SCH ×3 (09:00→21:10)
[2019-09-27] MEDS: CAPTOPRIL 25 MG TAB PO SCH ×3 (09:00→21:09)
--- NOTE | 2019-09-27 09:33 | NUR ---
PT BED WITH HOB ELEVATED. PT IS AWAKE AND ALERT. DENIES PAIN OR DISCOMFORT. NO S/S OF DISTRESS NOTED. BED IN LOW POSITION. CALL LIGHT WITHIN REACH.
[2019-09-27] MEDS ORDERED: LEVOTHYROXINE 0.075 MG TAB PO SCH (10:16)
--- NOTE | 2019-09-27 10:33 | NUR ---
ALL AM MEDS GIVEN ORDERED. PT IS LAYING IN BED, ALERT, AWAKE AND VERBALLY RESPONSIVE. NOTED IV TO RIGHT EJ LEAKING, ATTEMPTED TO FLUSH UNABLE TO SUCCESSFULLY FLUSH NS. WILL REINSERT IV.
[2019-09-27] MEDS: VIT-B COMP/VIT-C/FOLIC ACID 1 TAB PO SCH (10:36)
[2019-09-27] MEDS: LACTOBACILLUS RHAMNOSUS GG 1 EACH CAP PO SCH (10:36)
--- NOTE | 2019-09-27 11:00 | NUR ---
IV REINSERTED TO RIGHT HAND WITH 22G. IV INTACT AND PATENT, FLUSHED WITH NS.
[2019-09-27 12:00] VITALS: BP 128/72
[2019-09-27 12:25] LABS: CHOL/HDL RATIO 2.9 (1-4.5)
--- NOTE | 2019-09-27 13:00 | NUR ---
PT IS ALERT AND VERBALLY RESPONSIVE. DAUGHTER AT BEDSIDE. DENIES ANY SOB, PAIN OR DISCOMFORT. CALL LIGHT WITHIN REACH. IV INTACT AND PATENT TO RIGHT HAND WITH IVF NS INFUSING @ 10ML/HR TO KVO.
--- NOTE | 2019-09-27 15:09 | NUR ---
Pcp's appointment: I called and spoke with Yary at [facility] , address [address] [place] [address], made an appt on 10/04/19 at 9am. I provided patient with appt information. Addendum: 09/29/19 at 1625 by Radha Macias SS I called and spoke with Dilma at [facility] , address [address] [place] [address], I cancelled appt made on 10/04/19 at 9am since patient's tentative discharge plan at this time is to be discharged to snf.
--- NOTE | 2019-09-27 15:48 | NUR ---
DISCHARGE PLANNIN69 Y/O FEMALE PATIENT FROM HOME, WHO CAME IN DUE TO PERSISTENT HEADACHE X 1 DAY. PAST MEDICAL HISTORY OF ESRD ON HD MON AND FRI, HTN, HYPOTHYROIDISM AND DM. INITIAL DIAGNOSIS OF SEVERE SEPSIS, CHF. CURRENT LABS INCLUDE WBC 2.6, H/H 7.7/24.0, BUN/CREA 40/4.3, NA/K 138/3.4, LACTIC ACID ON ADMISSION 2.9-1.8 AND TROP 0.048. ON ZOSYN IV. PULMO CONSULT WITH DR. LEOS FOR POSSIBLE PNA. CARDIO CONSULT WITH DR. SMITH FOR POSSIBLE NEW ONSET FIBRILLATION. NEPHRO CONSULT WITH DR. MEHTA FOR ESRD ON HD. DC PLAN IS TO GO BACK HOME WHEN STABLE. Addendum: 09/28/19 at 0951 by Germaine Berry CM SANJIV ATTEMPTED TO MEET WITH THE PATIENT AT THE BEDSIDE TO DISCUSS DC PLANNING. PATIENT IS ASLEEP AND ON DIALYSIS. CONTACTED PATIENT'S DAUGHTER JASON JEAN AT [phone], NO ANSWER. UNABLE TO LEAVE MESSAGE, NO VOICEMAIL SET UP. Addendum: 09/28/19 at 0918 by Germaine Berry CM ABLE TO CONTACT PATIENT'S DAUGHTER JASON JEAN AT [phone], REGARDING DC PLAN. SHE STATED THAT HER MOTHER WAS ONCE IN A FPC IN [place] AND DOES NOT WANT HER MOTHER TO GO BACK THERE. WHEN ASKED THE NAME OF THE FACILITY, SHE SATED SHE COULD NOT REMEMBER IT. INFORMED HER THAT I LEFT BROCHURES WITH THE NURSE TO CHOOSE. SHE STATED SHE WILL BE HERE AROUND 1030. CM WILL FOLLOW UP. Addendum: 09/28/19 at 1246 by Germaine Berry MET WITH THE PATIENT'S DAUGHTER AT THE BEDSIDE TO DISCUSS DC PLANNING. I PROVIDED HER WITH BROCHURES FROM [facility], [facility] AND [facility]. SHE STATED SHE DOES NOT WANT HER MOTHER TO GO TO [facility]. SHE ALSO STATED SHE WANTS TO SPEAK TO THE DOCTOR FIRST BEFORE SHE CAN DECIDE. I ASKED HER SHE WANTS ANY BROCHURE TO LOOK AT, SHE ANSWERED SHE IS OK WITH THE TWO FOR NOW. PRIMARY RN MADE AWARE. Addendum: 09/28/19 at 1515 by Germaine Berry CM MET WITH THE PATIENT'S DAUGHTER JASON TOGETHER WITH DR JERRY AT THE BEDSIDE TO DISCUSS DC PLANS TO SNF FOR IV ANTIBIOTIC AND PT. ALL CONCERNS AND QUESTIONS ANSWERED. PROVIDED HER WITH OPTION FOR HOME HEALTH WELL. EXPLAINED TO HER THAT WITH HOME HEALTH THEY CANNOT DO IV ANTIBIOTIC Q8H AND SOMEBODY FROM THE FAMILY SHOULD BE WILLING TO BE TAUGHT TO ADMINISTER THE IV MEDS. SHE MENTIONED SHE HAS A NIECE WHO IS AN MA, SHE WILL ASK HER IF SHE IS ABLE TO DO. PROVIDED HER OF MY CONTACT NUMBER IF SHE HAVE MADE A DECISION. Addendum: 09/29/19 at 1043 by Germaine Berry CM CONTACTED PATIENT'S PCP DR. LESLYE HAQUE'S OFFICE AT [phone], ABLE TO SPEAK TO GERARDO. SHE STATED DR HAQUE HAS NOT BEEN SNF'S FOR A YEAR NOW. DR. JERRY MADE AWARE. CONTACTED PATIENT'S DAUGHTER JASON JEAN, INFORMED HER THAT DR. HAQUE DOES NOT DO SNF ANYMORE. AND I ASKED HER IF HER NIECE WILL BE ABLE TO HANG THE ANTIBIOTIC. SHE STATED HER NIECE CAN BUT SHE LIVES IN [place] AND SHE DOES NOT THINK THAT IT WILL BE NOT BE POSSIBLE FOR HER TO BE THERE EVERYDAY. I ALSO ASKED HER IF SHE HAVE DECIDED ON ANY SNF. SHE STATED SHE IS CONSIDERING [facility], BUT SHE DOES NOT WANT THE PATIENT TO STAY MORE THAT [address]. JERRY MADE AWARE. PER DR. JERRY, ANTIBIOTIC IS FOR 7 DAYS TOTAL AND PATIENT SHOULDN'T BE STAYING IN THE SNF FOR MORE THAN 4 DAYS. CONTACTED PATIENT'S DAUGHTER AGAIN, NO ANSWER. LEFT MESSAGE. Addendum: 09/29/19 at 1108 by Germaine Berry CM [facility] WILL FOLLOW. Addendum: 09/29/19 at 1436 by Germaine Berry CM CONTACTED PATIENT'S DAUGHTER JASON, SHE CONFIRMED THAT SHE IS OK FOR HER MOTHER TO GO TO REPLACED BY [facility]. FERNANDA IBARRA [facility], MADE AWARE. Addendum: 09/29/19 at 1527 by Germaine Berry CM CONTACTED [facility] AT [phone]. RITA CONFIRMED THAT PATIENT GOES THERE MON AND FRI AT 2PM. JAMIE IBARRA [facility] MADE AWARE. SHE STATED PATIENT CAN GO TO ROOM 31A, UNDER DR. FERRARA TOMORROW. Addendum: 09/30/19 at 1407 by Germaine Berry CM PER JAMIE IBARRA [facility], THEY ARE NOT ABLE TO ARRANGE TRANSPORT DUE TO PATIENT HAS MEDICARE PART B. PER PRIMARY SHEREE OCONNOR, PATIENT WILL HAVE DIALYSIS TODAY. PER DR. JERRY, WILL DC PATIENT AFTER DIALYSIS. MET WITH THE PATIENT AND PATIENT'S DAUGHTER (ANOTHER ONE) AT THE BEDSIDE TO DISCUSS DC PLAN FOR TODAY. PATIENT'S DAUGHTER STATED THAT I HAVE TO SPEAK TO ANALiPawn INSTEAD. CONTACTED ANALLILIAN, NO ANSWER. LEFT MESSAGE. Addendum: 09/30/19 at 1515 by Germaine Berry CM RECEIVED A CALL FROM PATIENT'S DAUGHTER IN [place], SHE STATED THAT THE FAMILY DECIDED THAT THEY WANT THE PATIENT HOME RATHER THAN SENDING HER TO THE FPC. SHE ALSO STATED THAT ANALLILIAN IS WITH HER, I ASKED TO SPEAK TO ANALiPawn. PATIENT'S DAUGHTER JASON CONFIRMED. SHE STATED THAT HER NIECE IS TEACHABLE TO ADMINISTER IV MEDICATIONS. DR. JERRY MADE AWARE. RECEIVED ORDER FOR HOME HEALTH FOR IV ANTIBIOTICS. CONTACTED PATIENT'S DAUGHTER JASON, DISCUSSED THE DC PLAN. SHE STATED SHE DOES NOT HAVE PREFERENCE FOR HOME HEALTH. INFORMED HER THAT I WILL BE WORKING ON IT AND WILL GIVE HER CALL BACK SOON I GET AN ACCEPTING AGENCY. Addendum: 09/30/19 at 1518 by Germaine Berry CM CONTACTED [facility], ABLE TO SPEAK TO NILAY (CARRIE), REGARDING INQUIRY. SHE STATED TO GO AHEAD FAX OVER REFERRAL. Addendum: 09/30/19 at 1538 by Germaine Berry CM CONTACTED [facility], ABLE TO SPEAK TO NILAY. SHE CONFIRMED THAT SHE RECEIVED THE REFERRAL AND THEY CAN ACCEPT THE PATIENT. CONTACTED [facility] AT [phone], ABLE TO SPEAK TO ANDRÉS FORREST REGARDING REFERRAL. HE STATED FAX REFERRAL TO [phone]. REFERRAL SENT. CONTACTED PATIENT'S DAUGHTER AND INFORMED HER THAT [facility] IS ABLE TO ACCEPT THE PATIENT AND THEY WILL CONTACT HER. I ALSO ASKED HER REGARDING HER NIECE'S NAME AND CONTACT INFO, HER NAME IS DIAZ [phone]. NILAY OF [facility] MADE AWARE. Addendum: 09/30/19 at 1539 by Germaine Berry CM RECEIVED A CALL FROM [facility], SHE CONFIRMED THAT THEY RECEIVED THE REFERRAL. SHE SAID SHE WILL REVIEW IT AND WILL GIVE ME A CALL BACK. Addendum: 09/30/19 at 1632 by Germaine Berry CM PER [facility], THEY COULD NOT GET AUTHORIZATION FROM THE INSURANCE AND NOT SURE IF THEY CAN DISPENSE THE MEDICATION TOMORROW. SHE STATED SHE WILL RUN AGAIN THE ELIGIBILITY AND WILL CALL ME BACK. I TOLD HER THAT I WILL CONTACT ANOTHER INFUSION AGENCY. SHE STATED TO LET HER KNOW ONCE THEY ARE ABLE TO ACCEPT THE PATIENT. CONTACTED [facility] AT [phone], ABLE TO SPEAK TO CYNTHIA (INTAKE). SHE SAID TO FAX REFERRAL. Addendum: 09/30/19 at 1648 by Germaine Berry CM PER CYNTHIA OF [facility], THEY ARE ABLE TO ACCEPT AND WILL DELIVER. DR. JERRY MADE AWARE AND CHARGE NURSE MADE AWARE.
[2019-09-27 16:00] VITALS: BP 113/77
--- NOTE | 2019-09-27 16:20 | NUR ---
PT COMPLAIN OF CONSTIPATION, AND PT REQUESTS TO HAVE RENAL MECH. SOFT CHOPPED INSTEAD OF PUREED. DR. GONZALEZ NOTIFIED.
[2019-09-27] MEDS ORDERED: MAGNESIUM HYDROXIDE 2400 MG/30 ML UDC PO SCH (17:00)
--- NOTE | 2019-09-27 18:46 | NUR ---
PT IS IN STABLE CONDITION. NEEDS MET AT THIS TIME. CALL LIGHT WITHIN REACH. WILL ENDORSE TO NIGHT NURSE FOR CONTINUITY OF CARE.
--- NOTE | 2019-09-27 19:10 | NUR ---
RECEIVED REPORT FROM AM SHIFT NURSE. PATIENT ALERT AND ORIENTED X4. PERUVIAN SPEAKING. NO APPARENT DISTRESS NOTED. IV ON RIGHT HAND 22G RUNNING KVO. INTRODUCED SELF AND UPDATED BOARD. WITH LEFT ARM SHUNT. SAFETY OBSERVED. BED ON LOW POSITION. WILL CONTINUE TO MONITOR.
[2019-09-27 20:00] VITALS: BP 133/52
--- NOTE | 2019-09-27 21:15 | NUR ---
PATIENT AWAKE AND ALERT. DUE MEDICATIONS GIVEN ORDERED. NO APPARENT DISTRESS NOTED. WILL CONTINUE TO MONITOR.
--- NOTE | 2019-09-27 23:10 | NUR ---
PATIENT ASLEEP IN BED. NO APPARENT DISTRESS NOTED. VISIBLE CHEST RISE AND FALL NOTED. WILL CONTINUE TO MONITOR.
[2019-09-28] VITALS: BP 118/64
--- NOTE | 2019-09-28 01:05 | NUR ---
ROUNDS DONE. PATIENT ASLEEP IN BED. NO APPARENT DISTRESS NOTED. WILL CONTINUE TO MONITOR.
--- NOTE | 2019-09-28 02:35 | NUR ---
CHECKS DONE. PATIENT ASLEEP IN BED. NO APPARENT DISTRESS NOTED. VISIBLE CHEST RISE AND FALL NOTED. BED ON LOW POSITION. WILL CONTINUE TO MONITOR.
[2019-09-28 04:00] VITALS: BP 130/61
--- NOTE | 2019-09-28 04:32 | NUR ---
PATIENT ASLEEP IN BED. VISIBLE CHEST RISE AND FALL NOTED. NO APPARENT DISTRESS NOTED. BED ON LOW POSITION. WILL CONTINUE TO MONITOR.
[2019-09-28] MEDS: LEVOTHYROXINE 0.075 MG TAB PO SCH (05:34)
[2019-09-28] MEDS: SEVELAMER CARBONATE 800 MG TAB PO SCH ×3 (05:35→21:20)
[2019-09-28] MEDS: BLOOD GLUCOSE MONITORING 1 DEV DEV FS SCH ×4 (05:49→21:25)
[2019-09-28] MEDS: MORPHINE SULFATE 2 MG/ML SYR IVP PRN (06:05)
[2019-09-28] MEDS: LORazepam 2 MG/ML VIAL IM/IVP PRN ×2 (06:23→23:41)
--- NOTE | 2019-09-28 06:30 | NUR ---
PATIENT AWAKE IN BED. WITH COMPLAINT OF PAIN 10/10 ON ABDOMEN. MEDICATED PER PAIN SCALE. ALSO WITH COMPLAINT OF ANXIETY. PRN ATIVAN GIVEN ORDERED.
[2019-09-28 06:52] LABS: BASOPHILS % (AUTO) 0.8 % (0.0-2.0); EOSINOPHILS # (AUTO) 0.2 K/uL (0-0.4); EOSINOPHILS % (AUTO) 5.3 % (0.0-4.0); HEMATOCRIT 24.8 % (36-48); HEMOGLOBIN 7.9 g/dL (12.0-16.0); LYMPHOCYTES # (AUTO) 0.2 K/uL (2.5-16.5); LYMPHOCYTES % (AUTO) 6.5 % (20.5-51.1); MEAN CORPUSCULAR HEMOGLOBIN 29 pg (27-31); MEAN CORPUSCULAR HGB CONC 32 g/dL (33-37); MEAN CORPUSCULAR VOLUME 89.5 fL (80-94); MONOCYTES # (AUTO) 0.3 K/uL (0.8-1.0); MONOCYTES % (AUTO) 9.7 % (1.7-9.3); NEUTROPHILS # (AUTO) 2.6 K/uL (1.8-7.7); NEUTROPHILS % (AUTO) 77.7 % (42.2-75.2); PLATELET COUNT (AUTO) 59 K/uL (140-450); RED BLOOD CELL COUNT(AUTO) 2.77 MIL/uL (4.20-5.40); RED CELL DISTRIBUTION WIDTH 19.9 % (11.6-13.7); WHITE BLOOD COUNT (AUTO) 3.3 K/uL (4.8-10.8)
[2019-09-28 06:55] LABS: MAGNESIUM 2.6 mg/dL (1.8-2.4); PHOSPHORUS 3.6 mg/dL (2.5-4.9)
--- NOTE | 2019-09-28 07:00 | NUR ---
ENDORSED TO AM SHIFT FOR CONTINUITY OF CARE.
[2019-09-28 07:01] LABS: ANION GAP 14.9 (8-16); CARBON DIOXIDE 28.8 mmol/L (21-32); POTASSIUM 4.7 mmol/L (3.5-5.1)
--- NOTE | 2019-09-28 07:25 | NUR ---
RECEIVED BEDSIDE REPORT FROM PM RN PT APPEARS STABLE AND IN NO APPARENT DISTRESS. ALL SAFETY MEASURES ARE IN PLACE PT IS ON TELE MONITORING. ALL SAFETY MEASURES ARE IN PLACE. WILL CONTINUE TO MONITOR.
[2019-09-28 07:32] LABS: CREATININE 5.5 mg/dL (0.6-1.3)
--- NOTE | 2019-09-28 08:01 | NUR ---
HD RN AT BEDSIDE ABOUT TO BEGIN HD. VITALS ARE STABLE PT APPEARS STABLE AND IN NO APPARENT DISTRESS. ALL SAFETY MEASURES ARE IN PLACE WILL CONTINUE TO MONITOR.
[2019-09-28 08:30] VITALS: BP 107/73
[2019-09-28] MEDS: CALCIUM CARB/VIT-D 500 MG/200 IU 1 TAB PO SCH ×2 (09:00→21:21)
[2019-09-28] MEDS: PROPRANOLOL 20 MG TAB PO SCH ×2 (09:00→21:00)
[2019-09-28] MEDS: FERROUS SULFATE 325 MG TABEC PO SCH ×2 (09:00→21:20)
[2019-09-28] MEDS: CAPTOPRIL 25 MG TAB PO SCH ×2 (09:00→21:00)
[2019-09-28] MEDS: LACTOBACILLUS RHAMNOSUS GG 1 EACH CAP PO SCH (09:00)
[2019-09-28] MEDS: VIT-B COMP/VIT-C/FOLIC ACID 1 TAB PO SCH (09:00)
--- NOTE | 2019-09-28 09:00 | NUR ---
HELD MORNING BLOOD PRESSURE MEDICATIONS PT IS RECEIVING HD CURRENTLY. WILL INFUSING 0900 ANTIBIOTIC WHEN HD IS COMPLETE.
--- NOTE | 2019-09-28 09:16 | NUR ---
FREQUENT ROUNDING ON PT PT APPEARS STABLE AND IN NO APPARENT DISTRESS. ALL SAFETY MEASURES ARE IN PLACE WILL CONTINUE TO MONITOR. HD IS CURRENTLY IN PLACE. HD RN AT BEDSIDE. WILL CONTINUE TO MONITOR.
--- NOTE | 2019-09-28 10:16 | NUR ---
CALLED AND SPOKE WITH PATIENTS DAUGHTER UPDATED HER ON THE PLAN TO PLACE A PICC LINE AND DISCHARGE THE PATIENT TO SNF. PT DAUGHTER STATED THAT SHE HAS ALREADY SPOKEN WITH ADMISSIONS MANAGER RN AND THEY HAVE SCHEDULED TO MEET LATER TODAY AND DISCUSS OPTIONS PTS DAUGHTER STATED THAT THEY HAVE A BAD HISTORY WITH SNF IN PAST. UNABLE TO OBTAIN CONSENT FOR PICC LINE PT CURRENTLY SLEEPING. PT RECEIVING HD VITALS STABLE ON TELE MONITORING PT RECEIVED ATIVAN AROUND 0630 PT IS NOT ALERT ENOUGH CURRENTLY TO SIGN A CONSENT.
--- NOTE | 2019-09-28 10:24 | NUR ---
HELD MORNING VITAMINS, AND FERROUS SULFATE. PT RECEIVED ATIVAN AND MORNING FROM PM RN AROUND 0600. PT IS SLEEPING CLAIMS REPRESENTATIVE TRIED FEEDING PT EARLIER PT WAS POCKETING FOOD. DO NOT WANT CHOKING RISK.
[2019-09-28] MEDS: PIPERACILLIN/TAZOBACTAM 2.25 GM in DEXTROSE 5% 50 ML IV SCH ×2 (11:20→21:23)
[2019-09-28 12:30] VITALS: BP 120/64
--- NOTE | 2019-09-28 12:47 | NUR ---
PT DAUGHTER AT BEDSIDE. EXPLAINED PICC LINE PT AND DAUGHTER BOTH UNDERSTOOD AND SIGNED CONSENT FOR PICC LINE.
--- NOTE | 2019-09-28 12:50 | NUR ---
HOUSE SUPERVISIOR CALLED PICC LINE NURSE. FOR PLACEMENT.
--- NOTE | 2019-09-28 13:46 | NUR ---
FREQUENT ROUNDING ON PT PT APPEARS STABLE AND IN NO APPARENT DISTRESS. ALL SAFETY MEASURES ARE IN PLACE
--- NOTE | 2019-09-28 15:05 | NUR ---
FREQUENT ROUNDING ON PT PT APPEARS STABLE AND IN NO APPARENT DISTRESS. ALL SAFETY MEASURES ARE IN PLACE WILL CONTINUE TO MONITOR.
[2019-09-28 16:00] VITALS: BP 109/50
--- NOTE | 2019-09-28 16:23 | NUR ---
ENDORSED PT TO TREVOR BENTLEY FOR CONTINUITY OF CARE
--- NOTE | 2019-09-28 16:35 | NUR ---
PT IS IN STABLE CONDITION. PICC LINE NURSE AT BEDSIDE AT THIS TIME.
[2019-09-28] MEDS: INSULIN LISPRO SLIDING SCALE 100 UNITS/ML VIAL SUBQ PRN ×2 (17:01→21:37)
[2019-09-28] MEDS: NACL 0.9% 1,000 ML IV SCH (17:06)
--- NOTE | 2019-09-28 17:20 | NUR ---
S/P PICC LINE CHEST XRAY DONE. PICC LINE TO RIGHT UPPER ARM IN PLACE AND ACCESSIBLE, PER PICC LINE NURSE. PT IS AWAKE AND ALERT, VERBALLY RESPONSIVE. NO S/S OF DISTRESS NOTED.
--- NOTE | 2019-09-28 19:15 | NUR ---
REPORT GIVEN TO NIGHT NURSE FOR CONTINUITY OF CARE. PT IS IN STABLE CONDITION.
--- NOTE | 2019-09-28 19:17 | NUR ---
RECEIVED PT ON BED EATING DINNER, TOLERATING WELL, GERMAN SPEAKING, AAOX4, ABLE TO MAKE NEEDS KNOWN, DENIES ANY PAIN AND NO SOB NOTED, RT UA PICC LINE IN PLACE, DRESSING DRY AND INTACT, PLAN OF CARE DISCUSSED, SAFETY MEASURES IN PLACE, CALL LIGHT WITHIN REACH.
[2019-09-28 20:00] VITALS: BP 114/46
--- NOTE | 2019-09-28 21:30 | NUR ---
BLOOD SUGAR CHECKED WITH 151 RESULT, DUE MEDS ADMINISTERED WITH EDUCATION PROVIDED, PT REFUSED BP MEDS AT THIS TIME, BP-114/46, FAMILY MEMBERS AT BEDSIDE, ALL NEEDS ATTENDED.
--- NOTE | 2019-09-28 23:45 | NUR ---
PT ANXIOUS AND RESTLESS, DENIES ANY PAIN, VITAL SIGNS TAKEN, BP SLIGHTLY ELEVATED, MEDICATED WITH ATIVAN IVP PRN, REPOSITIONED FOR COMFORT, IVF INFUSING WELL VIA RT UA PICC LINE, CONTINUE TO MONITOR CLOSELY.
[2019-09-29] VITALS: BP 150/65
--- NOTE | 2019-09-29 01:00 | NUR ---
ROUNDS MADE, SEEN PT SLEEPING, NO DISTRESS NOTED, SIDE RAILS UP AND BED ALARM ON, MONITORED CLOSELY.
[2019-09-29 04:00] VITALS: BP 144/66
--- NOTE | 2019-09-29 04:00 | NUR ---
PT SLEEPING, EASILY AROUSABLE BUT DROWSY, VITAL SIGNS STABLE, DENIES ANY PAIN, NO SOB NOTED, MONITORED CLOSELY.
[2019-09-29] MEDS: LEVOTHYROXINE 0.075 MG TAB PO SCH (05:43)
[2019-09-29] MEDS: SEVELAMER CARBONATE 800 MG TAB PO SCH ×3 (05:44→20:50)
--- NOTE | 2019-09-29 05:45 | NUR ---
AM LABS DRAWN VIA PICC LINE WITH GOOD BLOOD RETURN, BLOOD SUGAR CHECKED WITH 171 RESULT, WILL COVER WITH SLIDING SCALE, DUE PO MEDS ADMINISTERED, TOLERATED WELL, MONITORED CLOSELY.
[2019-09-29 06:28] LABS: HEMOGLOBIN 7.7 g/dL (12.0-16.0); MEAN CORPUSCULAR HEMOGLOBIN 29 pg (27-31); MEAN CORPUSCULAR HGB CONC 32 g/dL (33-37); MEAN CORPUSCULAR VOLUME 88.5 fL (80-94); PLATELET COUNT (AUTO) 51 K/uL (140-450); RED BLOOD CELL COUNT(AUTO) 2.69 MIL/uL (4.20-5.40); RED CELL DISTRIBUTION WIDTH 19.2 % (11.6-13.7); WHITE BLOOD COUNT (AUTO) 2.3 K/uL (4.8-10.8)
[2019-09-29] MEDS: INSULIN LISPRO SLIDING SCALE 100 UNITS/ML VIAL SUBQ PRN ×4 (06:29→20:45)
[2019-09-29] MEDS: BLOOD GLUCOSE MONITORING 1 DEV DEV FS SCH ×4 (06:39→20:46)
[2019-09-29 06:41] LABS: ANION GAP 14.6 (8-16); CARBON DIOXIDE 28.5 mmol/L (21-32); POTASSIUM 4.1 mmol/L (3.5-5.1)
[2019-09-29 06:51] LABS: MAGNESIUM 2.4 mg/dL (1.8-2.4)
[2019-09-29 07:03] LABS: CREATININE 4.5 mg/dL (0.6-1.3)
--- NOTE | 2019-09-29 07:15 | NUR ---
PT SLEEPING, NO SIGNS OF DISTRESS, REPORT GIVEN TO RN JOSE MARTIN FOR CONTINUITY OF CARE.
--- NOTE | 2019-09-29 07:20 | NUR ---
Received report from PM nurseJavi. Patient was sleeping, responded to auditory stimuli, even breathing, patient on room air. No signs of distress, patient on fall precautions, bed alarm is on. PICC line upper right arm, intact and asymptomatic.
[2019-09-29 07:29] LABS: HEMATOCRIT 24.1 % (36-48)
[2019-09-29 07:30] LABS: EOSINOPHILS % (MANUAL) 5 % (0-4); LYMPHOCYTES % (MANUAL) 16 % (20-46); MONOCYTES % (MANUAL) 7 % (5-12)
[2019-09-29 08:00] VITALS: BP 153/65
[2019-09-29] MEDS: CAPTOPRIL 25 MG TAB PO SCH ×2 (09:00→20:47)
[2019-09-29] MEDS ORDERED: EPOETIN ALFA 10,000 UNITS/ML VIAL SUBQ SCH (09:00)
[2019-09-29] MEDS: PROPRANOLOL 20 MG TAB PO SCH ×2 (09:00→20:47)
--- NOTE | 2019-09-29 09:00 | NUR ---
Heparin held d/t platelet count = 51. Dr Pedersen notified & agree to hold heparin. Pt shows no signs of active bleeding at this time.
[2019-09-29] MEDS: VIT-B COMP/VIT-C/FOLIC ACID 1 TAB PO SCH (09:28)
[2019-09-29] MEDS: FERROUS SULFATE 325 MG TABEC PO SCH ×2 (09:28→20:41)
[2019-09-29] MEDS: LACTOBACILLUS RHAMNOSUS GG 1 EACH CAP PO SCH (09:29)
[2019-09-29] MEDS: CALCIUM CARB/VIT-D 500 MG/200 IU 1 TAB PO SCH ×2 (09:29→20:40)
[2019-09-29] MEDS: PIPERACILLIN/TAZOBACTAM 2.25 GM in DEXTROSE 5% 50 ML IV SCH ×2 (09:35→20:42)
--- NOTE | 2019-09-29 11:22 | NUR ---
Patient complained of abdominal pain. 04/[address] Mcelroy was notified. Will continue to monitor patient. Patient also complains of gas. Bowel percussion shows hyperresonance. Requested for diet 7up for comfort. FNS notified.
[2019-09-29 12:00] VITALS: BP 135/66
--- NOTE | 2019-09-29 12:35 | NUR ---
Patient received diet 7up. Patient was asleep when nurse walked into room. FLACC score 0. Daughter at bedside and will give soda when patient wakes up.
--- NOTE | 2019-09-29 13:30 | NUR ---
Pt in high fowlers in bed, aaox4. Pt consumed 1can of diet 7up, states she feels much better. No c/o abd pain at this time. Right upper arm PICC line intact & asymptomatic. Call light within reach. Daughter at bedside with pt.
--- NOTE | 2019-09-29 15:27 | NUR ---
09/29/19 RD INITIAL ASSESSMENT COMPLETED PLEASE REFER TO NUTRITION ASSESSMENT UNDER CARE ACTIVITY FOR ESTIMATED NUTRITIONAL NEEDS. 1. CONTINUE [facility] SOFT RENAL AND CCHO 60GM DIET TOLERATED 2. ENCOURAGE PO INTAKE 3. MEATS/PROTEIN SERVED WILL BE GROUNDED 4. RD TO FOLLOW-UP 3-5 DAYS, MODERATE RISK YAJAIRA MEADE, RD
[2019-09-29 16:00] VITALS: BP 141/45
[2019-09-29] MEDS: NACL 0.9% 1,000 ML IV SCH (17:18)
--- NOTE | 2019-09-29 18:00 | NUR ---
Pt in high fowlers in bed, eating dinner. No c/o discomfort, no signs of distress. Right upper arm PICC intact & asymptomatic, NS @ 10ml/h. Daughter at bedside visiting pt.
--- NOTE | 2019-09-29 19:15 | NUR ---
Report given to pm nurse Javi. Pt resting in bed, no signs of distress. Daughter at bedside.
--- NOTE | 2019-09-29 19:16 | NUR ---
RECEIVED PT SITTING ON HIGH FOWLERS POSITION EATING DINNER, PT PREFER ANOTHER FOOD THAT IS EASY TO CHEW, WILL ORDER CHICKEN SALAD SANDWICH, SAMI SPEAKING, AAOX4, ABLE TO MAKE NEEDS KNOWN, DENIES ANY PAIN AND NO SOB NOTED, IVF INFUSING WELL VIA RT UA PICC LINE, DRESSING DRY AND INTACT, PLAN OF CARE DISCUSSED TOGETHER WITH DAUGHTERS AT BEDSIDE, SAFETY MEASURES IN PLACE, CALL LIGHT WITHIN REACH.
--- NOTE | 2019-09-29 20:50 | NUR ---
BLOOD SUGAR CHECKED WITH 205 RESULT, RISS COVERAGE GIVEN, DUE MEDS ADMINISTERED WITH EDUCATION PROVIDE AND TRANSLATED BY DAUGHTER AT BEDSIDE, TOLERATED WELL, ALL NEEDS ATTENDED.
[2019-09-30] VITALS: BP 155/71
[2019-09-30] MEDS: LORazepam 2 MG/ML VIAL IM/IVP PRN (01:13)
--- NOTE | 2019-09-30 01:15 | NUR ---
PT AWAKE, FEELING ANXIOUS, DENIES PAIN, MEDICATED PRN WITH ATIVAN 1MG IVP, MONITORED CLOSELY.
--- NOTE | 2019-09-30 05:07 | NUR ---
PT AWAKE WATCHING TV, AM LABS DRAWN VIA PICC LINE, MILK PROVIDED PER REQUEST, TOLERATED WELL, MONITORED CLOSELY.
[2019-09-30] MEDS: LEVOTHYROXINE 0.075 MG TAB PO SCH (05:34)
[2019-09-30] MEDS: SEVELAMER CARBONATE 800 MG TAB PO SCH ×4 (05:34→17:00)
[2019-09-30 06:23] LABS: ANION GAP 13.4 (8-16); CARBON DIOXIDE 27.8 mmol/L (21-32); POTASSIUM 4.2 mmol/L (3.5-5.1)
[2019-09-30 06:28] LABS: BASOPHILS % (AUTO) 1.1 % (0.0-2.0); EOSINOPHILS # (AUTO) 0.2 K/uL (0-0.4); EOSINOPHILS % (AUTO) 8.3 % (0.0-4.0); HEMATOCRIT 23.7 % (36-48); HEMOGLOBIN 7.6 g/dL (12.0-16.0); LYMPHOCYTES # (AUTO) 0.2 K/uL (2.5-16.5); LYMPHOCYTES % (AUTO) 8.8 % (20.5-51.1); MEAN CORPUSCULAR HEMOGLOBIN 28 pg (27-31); MEAN CORPUSCULAR HGB CONC 32 g/dL (33-37); MONOCYTES # (AUTO) 0.2 K/uL (0.8-1.0); MONOCYTES % (AUTO) 10.4 % (1.7-9.3); NEUTROPHILS # (AUTO) 1.6 K/uL (1.8-7.7); NEUTROPHILS % (AUTO) 71.4 % (42.2-75.2); PLATELET COUNT (AUTO) 47 K/uL (140-450); RED BLOOD CELL COUNT(AUTO) 2.69 MIL/uL (4.20-5.40); RED CELL DISTRIBUTION WIDTH 18.7 % (11.6-13.7); WHITE BLOOD COUNT (AUTO) 2.2 K/uL (4.8-10.8)
[2019-09-30 06:33] LABS: CREATININE 5.7 mg/dL (0.6-1.3); MAGNESIUM 2.7 mg/dL (1.8-2.4); PHOSPHORUS 5.3 mg/dL (2.5-4.9)
[2019-09-30] MEDS: MORPHINE SULFATE 2 MG/ML SYR IVP PRN (06:34)
--- NOTE | 2019-09-30 06:35 | NUR ---
PT COMPLAINING OF ABDOMINAL PAIN, PER PT NORCO IS NOT RELIEVING THE PAIN, MORPHINE 1MG IVP GIVEN PRN, MONITORED CLOSELY.
[2019-09-30] MEDS: BLOOD GLUCOSE MONITORING 1 DEV DEV FS SCH ×3 (06:38→16:30)
--- NOTE | 2019-09-30 07:24 | NUR ---
RECEIVED REPORT FROM ELECTRICIAN JOURNEYMAN WIREMAN NURSE FOR CONTINUITY OF CARE. PATIENT BED IN LOW POSITION, RESTING COMFORTABLY, DENIES PAIN AT THIS TIME, DISCHARGE ORDER IN, WILL PREPARE FOR DISPO. Addendum: 09/30/19 at 0800 by Goran Castillo RN WRONG PATIENT; REPORT RECEIVED FROM ELECTRICIAN JOURNEYMAN WIREMAN NURSE FOR CONTINUITY OF CARE, PATIENT HAS DIALYSIS SCHEDULED FOR THIS MORNING, PREPARING FOR DIALYSIS. PATIENT COMPLAINS OF PAIN, MEDICATIONS OFFERED. BED IN LOW POSITION, BREAKFAST SERVED, WILL CONTINUE TO MONITOR.
--- NOTE | 2019-09-30 07:25 | NUR ---
PT SLEEPING, NO SIGNS OF DISTRESS, BEDSIDE REPORT GIVEN TO SHEREE OCONNOR FOR CONTINUITY OF CARE.
[2019-09-30 08:00] VITALS: BP 146/59
--- NOTE | 2019-09-30 08:45 | NUR ---
PER MD'S ORDERS MORNING MEDICATIONS HELD DUE TO PENDING DIALYSIS.
[2019-09-30] MEDS: PIPERACILLIN/TAZOBACTAM 2.25 GM in DEXTROSE 5% 50 ML IV SCH (08:56)
[2019-09-30] MEDS: CAPTOPRIL 25 MG TAB PO SCH (08:56)
[2019-09-30] MEDS: PROPRANOLOL 20 MG TAB PO SCH (08:57)
[2019-09-30] MEDS: LACTOBACILLUS RHAMNOSUS GG 1 EACH CAP PO SCH (08:57)
[2019-09-30] MEDS: VIT-B COMP/VIT-C/FOLIC ACID 1 TAB PO SCH (08:57)
[2019-09-30] MEDS: FERROUS SULFATE 325 MG TABEC PO SCH (08:57)
[2019-09-30] MEDS: CALCIUM CARB/VIT-D 500 MG/200 IU 1 TAB PO SCH (08:58)
[2019-09-30] MEDS ORDERED: SYN.075 PO (09:10)
[2019-09-30] MEDS ORDERED: PIPE50SO5 IV (09:10)
[2019-09-30] MEDS ORDERED: HUMSLIDE SUBQ (09:15)
--- NOTE | 2019-09-30 10:15 | NUR ---
ROUNDS MADE, PATIENT IS SLEEPING IN BED, OBSERVED CHEST RISE AND FALL, NS RUNNING AT 10 ML/HR. DIALYSIS SCHEDULED FOR 1230 AND PREPARE FOR DISPO AFTER. BED IN LOW POSITION, CALL LIGHT ON AND WITHIN REACH. WILL CONTINUE TO MONITOR.
--- NOTE | 2019-09-30 12:45 | NUR ---
PATIENT IS RESTING IN BED, DAUGHTER AT BEDSIDE, DENIES PAIN AT THIS TIME. BED IN LOW POSITION, CALL LIGHT ON AND WITHIN REACH. DIALYSIS APPOINTMENT WAS CHANGED TO 1500 DUE TO EMERGENCY. WILL CONTINUE TO MONITOR.
[2019-09-30] MEDS: INSULIN LISPRO SLIDING SCALE 100 UNITS/ML VIAL SUBQ PRN (12:55)
--- NOTE | 2019-09-30 14:30 | NUR ---
PATIENT IS RESTING IN BED WITH DAUGHTER AT BEDSIDE, WILL CONTINUE TO MONITOR.
[2019-09-30 16:00] VITALS: BP 158/56
--- NOTE | 2019-09-30 16:00 | NUR ---
HEMODIALYSIS IS CURRENTLY IN PLACE, RESPONDING WELL TO HEMODIALYSIS, PATIENT IS RESTING IN BED, WILL CONTINUE TO MONITOR.
[2019-09-30] MEDS: NACL 0.9% 1,000 ML IV SCH (17:18)
--- NOTE | 2019-09-30 18:32 | NUR ---
PATIENT IS WAITING TO BE DISCHARGED, DAUGHTER WAITING AT BEDSIDE, PATIENT IS FINISHING DINNER.
--- NOTE | 2019-09-30 19:05 | NUR ---
PATIENT WAS DISCHARGED FROM [facility] IN STABLE CONDITION TO HOME, TRANSPORTATION PROVIDED BY HER DAUGHTER. PATIENTS BELONGINGS ACCOUNTED FOR. PAPERWORK GIVEN PATIENT.
== END 2019-09-30 19:00 | disposition home or self-care (01) | DRG 871 ==
LOC: MED 14:13 → MMU 17:18
PROVIDERS: ADMIT General Practice; ATTEND General Practice
PROC: 5A1D70Z Performance of Urinary Filtration, Intermittent, Less than 6 Hours Per Day (ICD-10-PCS; principal; 2019-09-26)
PROC: 02HV33Z Insertion of Infusion Device into Superior Vena Cava, Percutaneous Approach (ICD-10-PCS; 2019-09-28)
PROC: B548ZZA Ultrasonography of Superior Vena Cava, Guidance (ICD-10-PCS; 2019-09-28)
PROC: 5A1D70Z Performance of Urinary Filtration, Intermittent, Less than 6 Hours Per Day (ICD-10-PCS; 2019-09-30)
DX: A41.9 Sepsis, unspecified organism (principal); J69.0 Pneumonitis due to inhalation of food and vomit; N17.0 Acute kidney failure with tubular necrosis; I50.43 Acute on chronic combined systolic (congestive) and diastolic (congestive) heart failure; N18.6 End stage renal disease; E44.0 Moderate protein-calorie malnutrition; D61.818 Other pancytopenia; N39.0 Urinary tract infection, site not specified; I13.0 Hypertensive heart and chronic kidney disease with heart failure and stage 1 through stage 4 chronic kidney disease, or unspecified chronic kidney disease; D63.8 Anemia in other chronic diseases classified elsewhere; E03.9 Hypothyroidism, unspecified; E11.22 Type 2 diabetes mellitus with diabetic chronic kidney disease; F17.200 Nicotine dependence, unspecified, uncomplicated; I27.20 Pulmonary hypertension, unspecified; K59.00 Constipation, unspecified; I95.9 Hypotension, unspecified; I50.9 Heart failure, unspecified; E83.39 Other disorders of phosphorus metabolism; E83.41 Hypermagnesemia; E83.51 Hypocalcemia; Z68.23 Body mass index [BMI] 23.0-23.9, adult; Z90.49 Acquired absence of other specified parts of digestive tract; Z99.2 Dependence on renal dialysis
CPT/HCPCS: 36415; 70450; 71045; 80048; 80053; 82150; 82948; 83036; 83605; 83690; 83735; 83880; 84100; 84134; 84436; 84443; 84484; 85025; 85610; 85730; 87040; 87081; 93005; 96365; 96375; 97110; 97116; 97530; 99291; C1751; C1758; J0696; J0885; J1644; J1885; J2060; J2270; J2543; J7030; J7060; Q0092

== ENCOUNTER 2019-10-21 18:54 | Emergency (ER) | payer OTHER, MEDICAID ==
[~2019-10-21] VITALS: Ht 149.9 cm; Wt 55.5 kg
[~2019-10-21 18:54] MED LIST changes: -AMLO10TA PO; -FAMO20TA13 PO; +GABA300C PO; -HYD2.5C TP; -LEVEMIR SUBQ; +PIPE50SO5 IV; -PROC10I SUBQ; +SEVE800T6 PO; -SYN.05 PO; +SYN.075 PO; -TRAM50TA3 PO
[2019-10-21 19:08] VITALS: BP 143/97
--- NOTE | 2019-10-21 19:14 | NUR ---
PT AMBULATES BACK TO THE LOBBY
--- NOTE | 2019-10-21 20:07 | NUR ---
PT AMBULATED TO ER BED 03
--- NOTE | 2019-10-21 20:07 | NUR ---
69 Y/O FEMALE BIB FAMILY REFERRED BY DR VALERY CONTRERAS C/O GEN WEAKNESS, ABDOMINAL PAIN, X 2 DAYS ON DIALYSIS MF. BLOOD SUGAR CHECK USING OWN PT MACHINE 272. FISTULA ON UPPER LEFT ARM NOTED. PAIN IS A 5/10 PAIN; NONRADIATING. ABLE TO AMBULATE WIHT ASSIST. DENIES N/V/D. PERRLA +3; A/OX4; BREATHING UNLABORED AND SYMMETRICAL; 97% ON RA; 17RR. ERMD MADE AWARE OF STATUS. SIDE RAILSX1. DAUGHTER AT BEDSIDE PLACED ON MONITOR. WILL CONTINUE TO MONITOR. HX: DM, UMBILICAL HERNIA, DIALYSIS M-F RX:DENIES NKDA
--- NOTE | 2019-10-21 20:18 | NUR ---
patient back from ct.
[2019-10-21 21:10] LABS: PROTHROMBIN TIME 11.6 secs (10.8-13.4)
[2019-10-21 21:15] LABS: ALBUMIN 3.1 g/dL (3.4-5.0); ANION GAP 13.1 (8-16); CARBON DIOXIDE 29.9 mmol/L (21-32); CREATININE 3.8 mg/dL (0.6-1.3); TOTAL BILIRUBIN 0.5 mg/dL (0.0-1.0)
[2019-10-21 21:25] LABS: BASOPHILS % (AUTO) 0.9 % (0.0-2.0); EOSINOPHILS # (AUTO) 0.1 K/uL (0-0.4); EOSINOPHILS % (AUTO) 7.3 % (0.0-4.0); LYMPHOCYTES # (AUTO) 0.2 K/uL (2.5-16.5); LYMPHOCYTES % (AUTO) 11.3 % (20.5-51.1); MEAN CORPUSCULAR HEMOGLOBIN 28 pg (27-31); MEAN CORPUSCULAR HGB CONC 33 g/dL (33-37); MONOCYTES # (AUTO) 0.2 K/uL (0.8-1.0); MONOCYTES % (AUTO) 10.4 % (1.7-9.3); NEUTROPHILS # (AUTO) 1.4 K/uL (1.8-7.7); NEUTROPHILS % (AUTO) 70.1 % (42.2-75.2); PLATELET COUNT (AUTO) 68 K/uL (140-450); RED BLOOD CELL COUNT(AUTO) 2.22 MIL/uL (4.20-5.40); RED CELL DISTRIBUTION WIDTH 18.7 % (11.6-13.7)
[2019-10-21 21:29] LABS: HEMOGLOBIN 6.2 g/dL (12.0-16.0)
[2019-10-21 21:30] LABS: HEMATOCRIT 19.1 % (36-48)
[2019-10-21] MEDS: POTASSIUM CHLORIDE 10 MEQ TABER PO ONE (21:50)
--- NOTE | 2019-10-21 22:05 | NUR ---
Patient does not wish to proceed with medical care recommended by DR. WHITFIELD. Patient given information related to possible complications, up to and including , which could occur as a result of leaving hospital at this time. Patient verbalizes understanding of risks involved leaving against medical advice. Patient has signed AMA form. MAIRAD MADE AWARE.
[2019-10-21 22:39] VITALS: BP 143/97
== END 2019-10-21 21:55 | disposition left against medical advice (07) ==
LOC: MED 18:54
DX: E11.22 Type 2 diabetes mellitus with diabetic chronic kidney disease (principal); I12.0 Hypertensive chronic kidney disease with stage 5 chronic kidney disease or end stage renal disease; N18.6 End stage renal disease; D63.1 Anemia in chronic kidney disease; Z99.2 Dependence on renal dialysis; E87.70 Fluid overload, unspecified; Z90.49 Acquired absence of other specified parts of digestive tract; Z98.51 Tubal ligation status; Z79.899 Other long term (current) drug therapy; Z79.4 Long term (current) use of insulin
CPT/HCPCS: 36415; 71045; 80053; 83605; 83880; 84484; 85025; 85610; 85730; 87040; 93005; 99284

== ENCOUNTER 2020-04-02 13:19 | Inpatient (IN) | payer OTHER, MEDICAID, SELFPAY ==
[~2020-04-02] VITALS: Ht 160 cm; Wt 63.0 kg
[2020-04-02] VITALS (22 sets, daily range): BP systolic 79–158; BP diastolic 31–88
--- NOTE | 2020-04-02 13:19 | NUR ---
Patient BIBA ALS accompanied by Faraz JOHN, transferred to bed 4. RN evaluating patient at bedside.
--- NOTE | 2020-04-02 13:20 | NUR ---
70 Y/O FEMALE BIBA ALS FOR BRIGHT RED BLOOD IN STOOL. PER EMS PT WAS LAST SEEN NORMAL BY FAMILY 2 HRS PRIOR TO ARRIVAL. PT C/O ABD PAIN AT THIS TIME. GUARDING ABD AND MOANING IN PAIN. ABD SOFT, ROUND, TENDER TO PALP. BOWEL SOUNDS HYPERACTIVE X 4 QUAD. SITTING UPRIGHT AWAKE AND ALERT, WITH MILD CONFUSION. LAST RECEIVED DIALYSIS ON THURSDAY. PT PRESENTED WITH 20G TO RT HAND. PT HAS LT HAND RESTRICTION DUE TO DIALYSIS SHUNT. PLACED ON DOCK OPERATIONS SUPERVISOR, PULSE OX, AND BP CUFF PLACED. MEDHX: ESRD, DM
[2020-04-02] MEDS ORDERED: NACL 0.9% 1,000 ML IV ONE ×2 (13:30→14:55)
[2020-04-02] MEDS ORDERED: PANTOPRAZOLE 40 MG INJ VIAL IVP ONE (13:30)
[2020-04-02] MEDS ORDERED: ONDANSETRON 4 MG/2 ML VIAL IVP ONE (13:30)
--- NOTE | 2020-04-02 13:45 | NUR ---
Patient taken to CT scan via gurney by [employer].
[2020-04-02] MEDS ORDERED: fentaNYL 0.05 MG/ML VIAL IVP ONE (14:00)
[2020-04-02 14:07] LABS: BASOPHILS % (AUTO) 2.3 % (0.0-2.0); EOSINOPHILS # (AUTO) 0.2 K/uL (0-0.4); LYMPHOCYTES # (AUTO) 0.2 K/uL (2.5-16.5); LYMPHOCYTES % (AUTO) 10.2 % (20.5-51.1); MEAN CORPUSCULAR HEMOGLOBIN 29 pg (27-31); MEAN CORPUSCULAR HGB CONC 32 g/dL (33-37); MEAN CORPUSCULAR VOLUME 91.8 fL (80-94); MONOCYTES # (AUTO) 0.3 K/uL (0.8-1.0); MONOCYTES % (AUTO) 15.1 % (1.7-9.3); NEUTROPHILS # (AUTO) 1.1 K/uL (1.8-7.7); NEUTROPHILS % (AUTO) 61.4 % (42.2-75.2); PLATELET COUNT (AUTO) 42 K/uL (140-450); RED BLOOD CELL COUNT(AUTO) 1.14 MIL/uL (4.20-5.40); RED CELL DISTRIBUTION WIDTH 19.7 % (11.6-13.7)
--- NOTE | 2020-04-02 14:08 | NUR ---
Patient returned from CT scan.
--- NOTE | 2020-04-02 14:10 | NUR ---
PT RECEIVED 25 MCG OF [place], DR SHERLYN YEUNG, SAID TO HOLD OTHER 25MCG.
--- NOTE | 2020-04-02 14:18 | NUR ---
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
[2020-04-02 14:20] LABS: WHITE BLOOD COUNT (AUTO) 1.8 K/uL (4.8-10.8)
[2020-04-02 14:21] LABS: HEMOGLOBIN 3.3 g/dL (12.0-16.0)
[2020-04-02 14:26] LABS: HEMATOCRIT 10.5 % (36-48)
--- NOTE | 2020-04-02 14:40 | NUR ---
EMERGENT BLOOD TRANSFUSION INITIATED BY DR PLATA. PT TO RECEIVED O- BLOOD. VERIFIED BY SHEREE WHEATLEY.
[2020-04-02 14:41] LABS: ALBUMIN 1.1 g/dL (3.4-5.0); ANION GAP 14.4 (8-16); CREATININE 2.8 mg/dL (0.6-1.3); POTASSIUM 3.4 mmol/L (3.5-5.1); TOTAL BILIRUBIN 0.4 mg/dL (0.0-1.0)
[2020-04-02 14:45] LABS: PROTHROMBIN TIME 17.7 secs (10.8-13.4)
--- NOTE | 2020-04-02 14:54 | NUR ---
NO APPARENT BLOOD TRANSFUSION REACTION, PT TOLERATING WELL. VSS. WILL CONTINUE TO MONITOR
[2020-04-02] MEDS ORDERED: PHYTONADIONE 10 MG in NACL 0.9% 50 ML IV ONE (15:00)
[2020-04-02 15:01] LABS: BASOPHILS # (AUTO) 0.1 K/uL (0.00-0.22); BASOPHILS % (AUTO) 3.2 % (0.0-2.0); EOSINOPHILS # (AUTO) 0.3 K/uL (0-0.4); LYMPHOCYTES # (AUTO) 0.4 K/uL (2.5-16.5); LYMPHOCYTES % (AUTO) 13.2 % (20.5-51.1); MEAN CORPUSCULAR HEMOGLOBIN 29 pg (27-31); MEAN CORPUSCULAR HGB CONC 33 g/dL (33-37); MEAN CORPUSCULAR VOLUME 90.2 fL (80-94); MONOCYTES # (AUTO) 0.4 K/uL (0.8-1.0); MONOCYTES % (AUTO) 14.3 % (1.7-9.3); NEUTROPHILS # (AUTO) 1.8 K/uL (1.8-7.7); NEUTROPHILS % (AUTO) 60.3 % (42.2-75.2); PLATELET COUNT (AUTO) 65 K/uL (140-450); RED BLOOD CELL COUNT(AUTO) 1.72 MIL/uL (4.20-5.40); RED CELL DISTRIBUTION WIDTH 19.1 % (11.6-13.7); WHITE BLOOD COUNT (AUTO) 3.1 K/uL (4.8-10.8)
[2020-04-02 15:06] LABS: HEMOGLOBIN 5.1 g/dL (12.0-16.0)
[2020-04-02 15:07] LABS: HEMATOCRIT 15.5 % (36-48)
--- NOTE | 2020-04-02 15:22 | NUR ---
BLOOD TRANSFUSION COMPLETED. PT TOLERATED WELL. VSS AT THIS TIME.
[2020-04-02] MEDS ORDERED: DEXT 5% /NACL 0.9% 1,000 ML IV SCH (15:23)
[2020-04-02] MEDS ORDERED: DOCUSATE SODIUM 100 MG GELCAP PO PRN (15:25)
[2020-04-02] MEDS ORDERED: NOREPINEPHRINE 4 MG in DEXTROSE 5% 250 ML IV PRN (15:30)
--- NOTE | 2020-04-02 15:41 | NUR ---
PT RESTING IN BED, POSITIONED FOR COMFORT. VITAMIN K STARTED. WILL CONTINUE TO MONITOR
[2020-04-02] MEDS ORDERED: cefTRIAXone 1,000 MG VIAL ONE (15:59)
--- NOTE | 2020-04-02 16:00 | NUR ---
REPORT GIVEN TO SHEREE ROCHA. TRANSFER OF CARE AT THIS TIME
--- NOTE | 2020-04-02 16:01 | NUR ---
ASSUMED CARE OF PATIENT FROM SHEREE TANNER.
[2020-04-02 16:13] LABS: MAGNESIUM 1.5 mg/dL (1.8-2.4); PHOSPHORUS 4.4 mg/dL (2.5-4.9); THYROID STIMULATING HORMONE 13.69 uIU/mL (0.34-3.74)
--- NOTE | 2020-04-02 16:45 | NUR ---
RECEIVED PATIENT TRANSFERRED FROM ER VIA GURNEY, REPORT OBTAINED AT BEDSIDE, PT IS AAOX4, TRINIDADIAN SPEAKING, ABLE TO FOLLOW COMMANDS, VSS, DENIES PAIN, NO S/S OF DISTRESS, CLEAR LUNG SOUNDS GUNNER. DENIES ANY CHEST PAIN, SB ON DORR OPERATOR, TENDER ABDOMEN WITH ACTIVE BOWEL SOUNDS, BRIGHT RED BLOODY STOOL NOTED, NPO EXCEPT MEDS, ANURIC, INCONTINENT WITH BOWELS, ABLE TO MOVE ALL EXTREMITIES, GENERALIZED WEAKNESS NOTED, SKIN IS WARM AND DRY TO TOUCH, IV SITE TO RIGHT HAND, 20GA, AND RIGHT AC 20GA, AND RIGHT EJ 18GA, PATENT AND SL, AV SHUNT TO LEFT ARM, ORIENTED PATIENT ON ICU SETTING, SAFETY MEASURES IN PLACE, CALL LIGHT WITHIN REACH, WILL CONTINUE TO MONITOR.
--- NOTE | 2020-04-02 16:45 | NUR ---
Patient will be admitted to care of DR HINES. Admited to ICU. Will go to room ICU-05. Belongings list completed. Report to SHEREE ZAZUETA.
[2020-04-02] MEDS: PANTOPRAZOLE 80 MG in NACL 0.9% 100 ML IV SCH (17:30)
[2020-04-02] MEDS: OCTREOTIDE ACETATE 1.25 MG in NACL 0.9% 250 ML IV SCH (17:30)
[2020-04-02] MEDS ORDERED: ONDANSETRON 4 MG/2 ML VIAL IM/IVP PRN (17:48)
--- NOTE | 2020-04-02 18:00 | NUR ---
LOW BP NOTED, WILL STARTED LEVOPHED ORDERED, PATIENT IS MORE ALERT, OBTAINED HD CONSENT, FLEX LAMA NOTIFIED.
[2020-04-02] MEDS ORDERED: NOREPINEPHRINE 4 MG/4 ML VIAL IV ONE ×2 (18:53→18:57)
--- NOTE | 2020-04-02 19:15 | NUR ---
RECEIVED REPORT FROM DAY NURSE NO ACUTE DISTRESS NOTED.
--- NOTE | 2020-04-02 19:30 | NUR ---
REPORT GIVEN TO PEOPLESOFT DEVELOPER NURSE FOR CONTINUE OF CARE.
[2020-04-02] MEDS ORDERED: DEXTROSE 50% 50 ML SYR IVP PRN (19:35)
--- NOTE | 2020-04-02 19:45 | NUR ---
PT AWAKE SITTING UP IN BED, AAOX4 NAURUAN SPEAKING ONLY. PT ABLE TO MOVE ALL EXTREMITIES; FOLLOWING COMMANDS. SR 60S NO EDEMA NOTED, LEFT AVFISTULA PRESENT + BRUIT/ THRILL LUNGS DIMINISHED ON NC 2L DENIES SOB/CP. ABD SOFT ROUND, HERNIA PRESENT; ACTIVE BOWEL SOUNDS, BLOOD TINGED STOOL NOTED. PT ANURIC. SKIN INTACT, DISCOLORATION NOTED TO BILATERAL ARMS. PT ON PROTONIX DRIP AND SANDOSTATIN DRIP, LEVOPHED DRIP @ 5 MCG/KG/MIN, PERIPHERAL IV TO R FA X2 20 G, R EJ 18G NOTED. BED LOCKED IN LOWEST POSITION, HD TREATMENT SCHEDULED FOR PM. WILL CONTINUE TO OBSERVE.
[2020-04-02] MEDS ORDERED: LACTULOSE 20 GM/30 ML UDC PO SCH (20:10)
[2020-04-02] MEDS ORDERED: GABAPENTIN 300 MG CAP PO SCH (21:00)
[2020-04-02] MEDS ORDERED: CAPTOPRIL 25 MG TAB PO SCH (21:00)
[2020-04-02] MEDS ORDERED: PROPRANOLOL 20 MG TAB PO SCH (21:00)
[2020-04-02] MEDS: BLOOD GLUCOSE MONITORING 1 DEV DEV FS SCH (21:00)
[2020-04-02] MEDS: FERROUS SULFATE 325 MG TABEC PO SCH (21:19)
[2020-04-02] MEDS: CALCIUM CARB/VIT-D 500 MG/200 IU 1 TAB PO SCH (21:20)
[2020-04-02] MEDS ORDERED: ACETAMINOPHEN 325 MG TAB PO PRN (21:30)
[2020-04-02] MEDS ORDERED: INSU100S22 SUBQ (22:24)
[2020-04-02] MEDS ORDERED: CALC500T37 PO (22:26)
[2020-04-02] MEDS ORDERED: MELATONIN 3 MG TAB PO ONE (23:30)
--- NOTE | 2020-04-02 23:31 | NUR ---
HD TREATMENT DONE; PT RECEIVED 2 UNIT PRBC DURING TREATMENT, PT DENIES PAIN/SOB.
[2020-04-03] VITALS (43 sets, daily range): BP systolic 77–160; BP diastolic 31–82
--- NOTE | 2020-04-03 00:15 | NUR ---
MECHANICAL CAD DESIGNER AUTO GLASS WORKER # [id number] USED; PT INFORMED ABOUT PICC LINE PLACEMENT, AND PLANNED EGD FOR TOMRORROW IN AM. PT STATED SHE WOULD LIKE TO REST TONIGHT AND WOULD RECONSIDER IN AM. WILL CONTINUE TO MONITOR.
[2020-04-03] MEDS: PANTOPRAZOLE 80 MG in NACL 0.9% 100 ML IV SCH (01:40)
--- NOTE | 2020-04-03 02:00 | NUR ---
FFP GIVEN; NO REACTION NOTED. WILL CONTINUE TO OBSERVE
--- NOTE | 2020-04-03 02:00 | NUR ---
PT TAKING LEADS OFF, BP CUFF OFF, ADVISED PT TO KEEP IMPORTANT LINES TO MONITOR PT, PT STATES SHE WANTS TO REST AND TO BE LEFT ALONE. UPDATED MD, NO NEW ORDERS. AFTER MULTIPLE EFFORTS ABLE TO REAPPLY MONITOR LINES. WILL CONTINUE TO OBSERVE
--- NOTE | 2020-04-03 06:00 | NUR ---
AM CARE DONE, LINEN CHANGED. PT DENIES PAIN @ THIS TIME. WILL CONTINUE TO OBSERVE.
[2020-04-03] MEDS ORDERED: LEVOTHYROXINE 0.075 MG TAB PO SCH ×2 (06:30)
[2020-04-03] MEDS ORDERED: LEVOTHYROXINE 0.05 MG TAB PO SCH (06:30)
--- NOTE | 2020-04-03 07:53 | NUR ---
REPORT GIVEN TO DAY SHIFT RN, FOR CONTINUITY OF CARE.
[2020-04-03 08:10] LABS: FOLIC ACID 11.1 ng/mL (>3.0)
[2020-04-03] MEDS ORDERED: fentaNYL 0.05 MG/ML VIAL ONE (08:38)
[2020-04-03] MEDS ORDERED: MIDAZOLAM 2 MG/2 ML VIAL ONE ×2 (08:38→08:39)
[2020-04-03] MEDS ORDERED: diphenhydrAMINE 50 MG/ML VIAL ONE (08:38)
[2020-04-03] MEDS ORDERED: DOCUSATE SODIUM 100 MG GELCAP PO SCH (09:00)
[2020-04-03] MEDS ORDERED: SEVELAMER CARBONATE 800 MG TAB PO SCH (09:00)
[2020-04-03] MEDS: LACTULOSE 20 GM/30 ML UDC PO SCH ×3 (09:00→16:53)
--- NOTE | 2020-04-03 09:23 | NUR ---
PATIENT HAS BEEN SCREENED AND CATEGORIZED HIGH NUTRITION RISK. PATIENT WILL BE SEEN WITHIN 1-2 DAYS OF ADMISSION. 04/03/20-04/04/[address]
[2020-04-03] MEDS ORDERED: fentaNYL 0.05 MG/ML VIAL IVP ONE (10:30)
[2020-04-03] MEDS ORDERED: MIDAZOLAM 2 MG/2 ML VIAL IVP ONE (10:30)
[2020-04-03] MEDS ORDERED: INSU100S22 SUBQ (10:43)
[2020-04-03] MEDS ORDERED: GABA300C PO (10:43)
[2020-04-03] MEDS ORDERED: SYN.05 PO (10:43)
[2020-04-03] MEDS ORDERED: SEVE800T6 PO (10:43)
[2020-04-03] MEDS ORDERED: LACT10SO60 PO (10:43)
--- NOTE | 2020-04-03 11:05 | NUR ---
DISCHARGE PLANNING: THIS IS A 70 Y/O FEMALE PATIENT FROM HOME, WHO WAS BIBA DUE TO WEAKNESS, LETHARGY, BLOOD PER RECTUM. PAST MEDICAL HISTORY INCLUDE ESRD, CHF, DM, ANEMIA, HTN, HYPOTHYROIDISM AND HEMORRHOIDS. INITIAL DIAGNOSIS OF SEVER ANEMIA AND ALOC. CURRENT LABS INCLUDE WBC 3.1, H/H 5.1/15.5, NA/K 142/3.4, BUN/CREA 45/2.8, LACTIC ACID 2.3, MAG 1.5, TSH 13.69, ALB 1.1. 3 UNITS PRBC, 1 CONVALESCENT PLASMA TRANSFUSED. UPPER GI ENDOSCOPY DONE BY DR. DEJESUS - RECOMMENDED TO CONTINUE SANDOSTATIN DRIP AND TO ADD BETA BLOCKERS ONCE STABLE. OTHER CONSULTS INCLUDE BETHANY, NEPHRO AND PULMO IN PLACE. ON ROCEPHIN AND SANDOSTATIN. DC PLAN BACK TO HOME ONCE STABLE. Addendum: 04/05/20 at 1030 by Cherry Mccracken CM DC PLANNING: SEEN BI GI DR DEJESUS RECOMMENDED TO CONTINUE SANDOSTATIN DRIP FOR TODAY . H/H STABLE AFTER 4 UNITS OF PRBC DC PLAN TO GO HOME WITH HOME HEALTH FOR PT. FAXED TO [facility] . CM TO FOLLOW Addendum: 04/05/20 at 1125 by Asuncion Ramirez CM FAXED PATIENT CLINICALS TO [facility] [phone] FAX # [phone]. HENRIETTA FROM [facility] CONTACTED ME BACK AND WILL BE ABLE TO ACCEPT THE PATIENT. Addendum: 04/06/20 at 1347 by Asuncion Ramirez CM SPOKE WITH HENRIETTA PATIENT HAS BEEN ACCEPTED. HENRIETTA STATED SHE SPOKE TO THE PATIENT. Addendum: 04/06/20 at 1622 by Germaine Berry CM DISCUSSED DURING THE BED HUDDLE, PATIENT WILL HAVE COLONOSCOPY TODAY AND POSSIBLE DC ONCE RESULTS ARE OK. Addendum: 04/09/20 at 1037 by Asuncion Ramirez CM FAXED PATIENTS CLINICALS TO [facility] [phone], FAX # [phone]. WILL FOLLOW UP. Addendum: 04/09/20 at 1137 by Asuncion Malaveeda CM [facility] NOT AVAILABLE AT THE TIME SHE WILL CONTACT ME BACK, BUT THEY DID VERIFY THAT THEY HAVE RECEIVED MY FAX AND ITS UNDER REVIEW. Addendum: 04/09/20 at 1150 by Asuncion Ramirez [facility] CALLED ME BACK AND NOTIFIED ME THAT SHE SPOKE TO THE FAMILY MEMBERS OF PATIENT AND EXPLAINED HOW HOSPICE [phone]. SHE IS WAITING ON THE DAUGHTER JASON JEAN TO CALL BACK FOR CONSENT OF HOSPICE BECAUSE THE PATIENT LIVES WITH HER DAUGHTER. SO FAR ALL OTHER FAMILY MEMBERS ARE IN AGREEMENT. [facility] A'S TELPHONE NUMBER [phone].
[2020-04-03] MEDS: BLOOD GLUCOSE MONITORING 1 DEV DEV FS SCH ×4 (11:30→21:00)
[2020-04-03 12:15] LABS: BASOPHILS % (AUTO) 0.6 % (0.0-2.0); EOSINOPHILS # (AUTO) 0.2 K/uL (0-0.4); EOSINOPHILS % (AUTO) 7.9 % (0.0-4.0); HEMATOCRIT 22.1 % (36-48); HEMOGLOBIN 7.5 g/dL (12.0-16.0); LYMPHOCYTES # (AUTO) 0.2 K/uL (2.5-16.5); LYMPHOCYTES % (AUTO) 7.7 % (20.5-51.1); MEAN CORPUSCULAR HEMOGLOBIN 30 pg (27-31); MEAN CORPUSCULAR HGB CONC 34 g/dL (33-37); MEAN CORPUSCULAR VOLUME 88.5 fL (80-94); MONOCYTES # (AUTO) 0.3 K/uL (0.8-1.0); MONOCYTES % (AUTO) 8.8 % (1.7-9.3); NEUTROPHILS # (AUTO) 2.3 K/uL (1.8-7.7); PLATELET COUNT (AUTO) 53 K/uL (140-450); RED BLOOD CELL COUNT(AUTO) 2.49 MIL/uL (4.20-5.40); RED CELL DISTRIBUTION WIDTH 16.5 % (11.6-13.7)
[2020-04-03 12:26] LABS: ANION GAP 11.5 (8-16); CARBON DIOXIDE 30.1 mmol/L (21-32); CREATININE 3.2 mg/dL (0.6-1.3); POTASSIUM 3.6 mmol/L (3.5-5.1)
[2020-04-03 12:32] LABS: CHOL/HDL RATIO 2.6 (1-4.5)
[2020-04-03] MEDS: PROPRANOLOL 20 MG TAB PO SCH ×2 (13:00→16:53)
[2020-04-03] MEDS: SEVELAMER CARBONATE 800 MG TAB PO SCH ×3 (13:25→16:55)
[2020-04-03] MEDS: VIT-B COMP/VIT-C/FOLIC ACID 1 TAB PO SCH ×3 (13:26→13:31)
[2020-04-03] MEDS: CALCIUM CARB/VIT-D 500 MG/200 IU 1 TAB PO SCH ×2 (13:27→13:32)
[2020-04-03] MEDS: FERROUS SULFATE 325 MG TABEC PO SCH ×2 (13:28→13:32)
--- NOTE | 2020-04-03 14:12 | NUR ---
04/03/20 RD INITIAL ASSESSMENT COMPLETED PLEASE REFER TO NUTRITION ASSESSMENT UNDER CARE ACTIVITY FOR ESTIMATED NUTRITIONAL NEEDS. 1. CONTINUE FULL LIQUID DIET TOLERATED 2. ADVANCE TO [facility] 60 RENAL MECHANICAL SOFT WHEN MEDICALLY CLEARED 3. GLUCERNA BID WILL BE PROVIDED 4. RD TO FOLLOW-UP 2-3 DAYS, HIGH RISK YAJAIRA MEADE RD
[2020-04-03] MEDS: OCTREOTIDE ACETATE 1.25 MG in NACL 0.9% 250 ML IV SCH (15:40)
[2020-04-03] MEDS: INSULIN LISPRO SLIDING SCALE 100 UNITS/ML VIAL SUBQ PRN (16:44)
--- NOTE | 2020-04-03 18:31 | NUR ---
PATIENT UP WITH PT TOLERATED WELL Addendum: 04/03/20 at 1834 by Agency 05 RN RN Amended: Links added.
[2020-04-03 19:09] LABS: BASOPHILS % (AUTO) 1.4 % (0.0-2.0); EOSINOPHILS # (AUTO) 0.3 K/uL (0-0.4); EOSINOPHILS % (AUTO) 9.6 % (0.0-4.0); HEMATOCRIT 22.2 % (36-48); HEMOGLOBIN 7.4 g/dL (12.0-16.0); LYMPHOCYTES # (AUTO) 0.2 K/uL (2.5-16.5); LYMPHOCYTES % (AUTO) 7.1 % (20.5-51.1); MEAN CORPUSCULAR HEMOGLOBIN 30 pg (27-31); MEAN CORPUSCULAR HGB CONC 33 g/dL (33-37); MEAN CORPUSCULAR VOLUME 89.7 fL (80-94); MONOCYTES # (AUTO) 0.3 K/uL (0.8-1.0); MONOCYTES % (AUTO) 10.3 % (1.7-9.3); NEUTROPHILS # (AUTO) 2.1 K/uL (1.8-7.7); NEUTROPHILS % (AUTO) 71.6 % (42.2-75.2); PLATELET COUNT (AUTO) 52 K/uL (140-450); RED BLOOD CELL COUNT(AUTO) 2.48 MIL/uL (4.20-5.40); RED CELL DISTRIBUTION WIDTH 16.7 % (11.6-13.7); WHITE BLOOD COUNT (AUTO) 2.9 K/uL (4.8-10.8)
--- NOTE | 2020-04-03 19:20 | NUR ---
BEDSIDE REPORT RECEIVED FROM AM SHIFT RN. SINUS BRADYCARDIA ON MONITOR. PT ALERT, ORIENTED. ABLE TO MAKE NEEDS KNOWN. ON ROOM AIR. IV SITE R IJ 18G AND RHAND 20 INTACT, PATENT, GOOD BLOOD RETURN. RAC 20 GAUGE, INFUSING SANDOSTATIN 50 MCG/MIN. LEFT AV FISTULA, BRUITS HEARD, PALPABLE THRILLS. SKIN INTACT, WARM AND DRY. MOVES ALL EXTREMITIES, GENERALIZED WEAKNESS. CALL LIGHT WITHIN REACH. SAFETY PRECAUTIONS IN PLACE. WILL CONTINUE TO MONITOR.
--- NOTE | 2020-04-03 20:00 | NUR ---
PT TAKEN TO CT SCAN WITH RN AND UNION CONTRACT REPRESENTATIVE.
--- NOTE | 2020-04-03 20:11 | NUR ---
PT TRANSFERRED BACK TO ICU -[address] SCAN. PT CALM AND APPROPRIATE, PT TOLERATED WELL. WILL CONTINUE TO MONITOR.
[2020-04-03] MEDS: GABAPENTIN 100 MG CAP PO SCH (21:00)
[2020-04-03] MEDS ORDERED: GABAPENTIN 300 MG CAP PO SCH (21:00)
[2020-04-03] MEDS: INSULIN LANTUS 100 UNITS/ML 10 ML VIAL SUBQ SCH (21:00)
--- NOTE | 2020-04-03 21:25 | NUR ---
PT SEEN AND ASSESSED. FOUND PT ON ROOM AIR WITH SPO2 OF 97%. PT IS IN NO APPARENT RESPIRATORY DISTRESS AT THIS TIME AND NO C/O SOB. WILL CONTINUE TO MONITOR PT.
--- NOTE | 2020-04-03 22:13 | NUR ---
PT REQUESTING FOR JELLO AND WATER. PROVIDED AT REQUEST. PT TOLERATED WELL.
[2020-04-04] VITALS (39 sets, daily range): BP systolic 82–142; BP diastolic 32–77
--- NOTE | 2020-04-04 | NUR ---
SANDOSTATIN IV DRIP INFUSING. SR ON MONITOR. BP WNL. RESPIRATIONS EVEN AND UNLABORED. CHEST RISE IS SYMMETRICAL. WILL CONTINUE TO MONITOR.
--- NOTE | 2020-04-04 02:13 | NUR ---
PT HAS EYES CLOSED, RESPIRATIONS EVEN AND UNLABORED. CHEST RISE IS SYMMETRICAL. WILL CONTINUE TO MONITOR.
--- NOTE | 2020-04-04 04:10 | NUR ---
AM LABS DRAWN
[2020-04-04 05:21] LABS: BASOPHILS # (AUTO) 0.1 K/uL (0.00-0.22); BASOPHILS % (AUTO) 1.5 % (0.0-2.0); EOSINOPHILS # (AUTO) 0.3 K/uL (0-0.4); EOSINOPHILS % (AUTO) 7.4 % (0.0-4.0); HEMATOCRIT 20.5 % (36-48); LYMPHOCYTES # (AUTO) 0.4 K/uL (2.5-16.5); MEAN CORPUSCULAR HEMOGLOBIN 30 pg (27-31); MEAN CORPUSCULAR HGB CONC 34 g/dL (33-37); MEAN CORPUSCULAR VOLUME 89.2 fL (80-94); MONOCYTES # (AUTO) 0.4 K/uL (0.8-1.0); MONOCYTES % (AUTO) 11.5 % (1.7-9.3); NEUTROPHILS # (AUTO) 2.4 K/uL (1.8-7.7); NEUTROPHILS % (AUTO) 68.6 % (42.2-75.2); PLATELET COUNT (AUTO) 52 K/uL (140-450); RED CELL DISTRIBUTION WIDTH 17.1 % (11.6-13.7)
[2020-04-04] MEDS: LEVOTHYROXINE 0.075 MG TAB PO SCH (06:28)
[2020-04-04] MEDS: LANSOPRAZOLE 30 MG CAPDR PO SCH (06:28)
--- NOTE | 2020-04-04 06:30 | NUR ---
SCHEDULED MEDICATIONS GIVEN. PT TOLERATED WELL. WILL CONTINUE TO MONITOR
[2020-04-04 06:37] LABS: ANION GAP 9.4 (8-16); CARBON DIOXIDE 31.7 mmol/L (21-32); POTASSIUM 4.1 mmol/L (3.5-5.1)
[2020-04-04 06:48] LABS: CREATININE 4.2 mg/dL (0.6-1.3)
--- NOTE | 2020-04-04 07:25 | NUR ---
RECEIVED REPORT FROM HEALTH CARE FACILITIES INSPECTOR
--- NOTE | 2020-04-04 07:44 | NUR ---
ROUNDS COMPLETED BY TEAM, PLAN OF CARE TO INCLUDE POSSIBLE TRANSFUSION AND POSSIBLE TRANSFER TO TELEMETRY THIS AFTERNOON IF STABLE.
[2020-04-04 08:13] LABS: HEMOGLOBIN 6.9 g/dL (12.0-16.0); WHITE BLOOD COUNT (AUTO) 3.4 K/uL (4.8-10.8)
[2020-04-04] MEDS: SEVELAMER CARBONATE 800 MG TAB PO SCH ×3 (08:19→17:45)
[2020-04-04] MEDS: LACTULOSE 20 GM/30 ML UDC PO SCH ×3 (08:19→17:45)
[2020-04-04] MEDS: FERROUS SULFATE 325 MG TABEC PO SCH ×2 (08:19→20:15)
[2020-04-04] MEDS: PROPRANOLOL 20 MG TAB PO SCH ×3 (08:20→17:00)
[2020-04-04] MEDS: CALCIUM CARB/VIT-D 500 MG/200 IU 1 TAB PO SCH ×2 (08:20→20:16)
[2020-04-04] MEDS: BLOOD GLUCOSE MONITORING 1 DEV DEV FS SCH ×4 (08:21→17:45)
[2020-04-04] MEDS: VIT-B COMP/VIT-C/FOLIC ACID 1 TAB PO SCH (08:21)
[2020-04-04] MEDS: PANTOPRAZOLE 40 MG INJ VIAL IVP SCH (09:00)
--- NOTE | 2020-04-04 09:53 | NUR ---
USED DISPLAY ASSOCIATE #[id number] PATIENT REQUESTING PURSE SO PATIENT CAN TAKE OWN MEDICATIONS. EXPLAINED NURSE IS GIVING HER MEDICATIONS PER MD ORDERS. PATIENT STATES UNDERSTANDS.
--- NOTE | 2020-04-04 11:50 | NUR ---
DIALYSIS NURSE STARTING THERAPY PER MD ORDERS
--- NOTE | 2020-04-04 12:32 | NUR ---
AT BEDSIDE EVALUATING PATIENT DR DEJESUSU
[2020-04-04] MEDS ORDERED: OCTREOTIDE ACETATE 1.25 MG in NACL 0.9% 250 ML IV SCH (13:00)
[2020-04-04] MEDS: INSULIN LISPRO SLIDING SCALE 100 UNITS/ML VIAL SUBQ PRN ×2 (13:03→20:17)
--- NOTE | 2020-04-04 14:33 | NUR ---
PULVERIZER FEEDER NOTE: Patient's Orientation Person Situation Place Time Information Provided By JASON JEAN - DAUGHTER Rehabilitation Nurse, Realtionship and Phone Number JASON JEAN [phone] DAUGHTER Healthcare Power of Semiconductor Wafer Inspector No Does Patient Have a POLST No Identifying Problems No Social Work Triggers Is A Social Work Consult Needed No Mandate Report Filed No Explanation Of Identifying Problems PATIENT IS A 70-YEAR-OLD FEMALE ADMITTED FOR SEVERE ANEMIA AND ALOC. PATIENT HAS PMHX OF ESRD, CHF, DM, HTN, HYPOTHYROIDISM, AND HEMORRHOIDS. Admitted From Home Pre-Admission Level Of Functioning Status Independent/Ambulatory Prior Resources/Services Used In Last 12 Months No Prior Resources Used Prior DME Walker Dialysis Hemodialysis Name And Phone Number of Dialysis Facility [facility] - [phone] ESRD Outpatient Days [facility] Mode Of Transportation to Dialysis [facility] [place] Living Situation Apartment Lives With Family Home Support No Caregiver Issues Financial Issues No Known Financial Issue Factors/Needs No D/C Needs Identified Pt/Rep Participated In Discharge Plan Yes Discharge Plan Comments TENTATIVE DISCHARGE PLAN IS FOR PATIENT TO RETURN HOME. DC Plan Status Initiated
--- NOTE | 2020-04-04 15:10 | NUR ---
DIALYSIS COMPLETED, X1 LITER OFF DURING TREATMENT. DISCONTINUED LEVOPHED AT 1500 PER DIALYSIS NURSE. DIALYSIS NURSE KEPT SBP HIGHER LEVEL TO COMPLETE TX AND TAKE FLUIDS OFF.
[2020-04-04] MEDS: OCTREOTIDE ACETATE 1.25 MG in NACL 0.9% 250 ML IV SCH ×2 (15:40→16:04)
--- NOTE | 2020-04-04 19:20 | NUR ---
RECEIVED REPORT FROM AM SHIFT. PT SEEN AND ASSESSED. FOUND PT ON ROOM AIR WITH SPO2 OF 100%. NOTICED ADEQUATE BILATERAL CHEST RISE AND AND FALL. PT IS IN NO APPARENT RESPIRATORY DISTRESS AT THIS TIME AND NO C/O SOB. WILL CONTINUE TO MONITOR PT.
--- NOTE | 2020-04-04 19:25 | NUR ---
REPORT RECEIVED FROM AM NURSE AT BEDSIDE. PT IN STABLE CONDITION. AAOX4. NO COMPLAINTS OF PAIN. NO SOB ON RA O2 SATURATION@99%. AFEBRILE@99.0. PT IS ICELANDIC SPEAKING. PT IS ON BEDREST. PT IS ANURIC. PT ON CCHO 60 DIET. IV SITE R AC 20G SL DOES NOT FLUSH WELL. R HAND 20G RUNNING SANDOSTATIN@10ML/HR PATENT AND INTACT. SKIN WARM, DRY, AND INTACT WITH NO OPEN WOUNDS. BED LOCKED IN LOW POSITION. CALL GE WITHIN REACH. SAFETY PRECAUTION IN PLACE. ALL NEEDS MET AT THIS TIME.
--- NOTE | 2020-04-04 20:15 | NUR ---
BS 161. 2 UNITS OF HUMALOG GIVEN. 10 UNITS OF LANTUS GIVEN. OSCAL, XIFAXAN, NEURONTIN, AND FERROUS SULFATE GIVEN PO. PT TOLERATED WELL.
[2020-04-04] MEDS: INSULIN LANTUS 100 UNITS/ML 10 ML VIAL SUBQ SCH (20:16)
[2020-04-04] MEDS: GABAPENTIN 100 MG CAP PO SCH (20:16)
[2020-04-04] MEDS: RIFAXIMIN 550 MG TAB PO SCH (20:16)
[2020-04-04 20:31] LABS: BASOPHILS # (AUTO) 0.1 K/uL (0.00-0.22); BASOPHILS % (AUTO) 1.1 % (0.0-2.0); EOSINOPHILS # (AUTO) 0.3 K/uL (0-0.4); EOSINOPHILS % (AUTO) 5.5 % (0.0-4.0); HEMATOCRIT 27.8 % (36-48); HEMOGLOBIN 9.3 g/dL (12.0-16.0); LYMPHOCYTES # (AUTO) 0.4 K/uL (2.5-16.5); LYMPHOCYTES % (AUTO) 7.4 % (20.5-51.1); MEAN CORPUSCULAR HEMOGLOBIN 30 pg (27-31); MEAN CORPUSCULAR HGB CONC 33 g/dL (33-37); MEAN CORPUSCULAR VOLUME 90.7 fL (80-94); MONOCYTES # (AUTO) 0.5 K/uL (0.8-1.0); MONOCYTES % (AUTO) 9.6 % (1.7-9.3); NEUTROPHILS # (AUTO) 3.9 K/uL (1.8-7.7); NEUTROPHILS % (AUTO) 76.4 % (42.2-75.2); PLATELET COUNT (AUTO) 60 K/uL (140-450); RED BLOOD CELL COUNT(AUTO) 3.06 MIL/uL (4.20-5.40); RED CELL DISTRIBUTION WIDTH 16.6 % (11.6-13.7); WHITE BLOOD COUNT (AUTO) 5.2 K/uL (4.8-10.8)
--- NOTE | 2020-04-04 21:25 | NUR ---
PT TRANSFERRED TO TELEMETRY FLOOR. REPORT GIVEN TO LESLIE BENTLEY AT BEDSIDE. PT IN STABLE CONDITION.
--- NOTE | 2020-04-04 21:26 | NUR ---
RECEIVED PT FROM ICU NURSE, SIS. PT CAME IN WHEEL CHAIR. PT BREATHING EVEN AND UNLABORED WITH ROOM AIR. IV SITE ON LAC 20G, SL, RH, 20G. PATENT, INTACT, AND ASYMPTOMATIC. SKIN INTACT, WARM AND DRY TO TOUCH. AV SHUNT IN [place]. ORIENTED ROOM TO PT. BED IN LOW POSITION, CALL LIGHT WITHIN REACH.
[2020-04-05] VITALS: BP 116/57
--- NOTE | 2020-04-05 | NUR ---
VS WITHIN PT'S BASE LINE. WILL CONTINUE TO MONITOR.
--- NOTE | 2020-04-05 01:11 | NUR ---
ENDORSED PT TO URIAH FOR CONTINUOUS CARE. PT IN STABLE CONDITION.
--- NOTE | 2020-04-05 01:20 | NUR ---
RECEIVED PT FROM SHEREE LOONEY FOR CONTINUITY OF CARE. PT IN STABLE CONDITION.
--- NOTE | 2020-04-05 03:30 | NUR ---
PT HAD SOME APPLE SAUCE. NO C/O ANY DISCOMFORT .
[2020-04-05 04:15] VITALS: BP 121/54
[2020-04-05] MEDS: LEVOTHYROXINE 0.075 MG TAB PO SCH (05:42)
[2020-04-05] MEDS: LANSOPRAZOLE 30 MG CAPDR PO SCH (05:42)
[2020-04-05] MEDS: BLOOD GLUCOSE MONITORING 1 DEV DEV FS SCH ×4 (05:57→21:00)
[2020-04-05] MEDS: INSULIN LISPRO SLIDING SCALE 100 UNITS/ML VIAL SUBQ PRN ×4 (05:59→22:15)
--- NOTE | 2020-04-05 06:00 | NUR ---
BLOOD SUGAR THIS AM 243. NO INSULIN COVERAGE NEEDED.
[2020-04-05 06:12] LABS: BASOPHILS % (AUTO) 0.9 % (0.0-2.0); EOSINOPHILS # (AUTO) 0.2 K/uL (0-0.4); EOSINOPHILS % (AUTO) 4.8 % (0.0-4.0); HEMATOCRIT 24.9 % (36-48); HEMOGLOBIN 8.4 g/dL (12.0-16.0); LYMPHOCYTES # (AUTO) 0.3 K/uL (2.5-16.5); LYMPHOCYTES % (AUTO) 5.9 % (20.5-51.1); MEAN CORPUSCULAR HEMOGLOBIN 30 pg (27-31); MEAN CORPUSCULAR HGB CONC 34 g/dL (33-37); MEAN CORPUSCULAR VOLUME 90.4 fL (80-94); MONOCYTES # (AUTO) 0.4 K/uL (0.8-1.0); NEUTROPHILS # (AUTO) 3.5 K/uL (1.8-7.7); NEUTROPHILS % (AUTO) 78.4 % (42.2-75.2); PLATELET COUNT (AUTO) 47 K/uL (140-450); RED BLOOD CELL COUNT(AUTO) 2.76 MIL/uL (4.20-5.40); RED CELL DISTRIBUTION WIDTH 16.9 % (11.6-13.7); WHITE BLOOD COUNT (AUTO) 4.5 K/uL (4.8-10.8)
[2020-04-05 06:56] LABS: CARBON DIOXIDE 27.6 mmol/L (21-32); CREATININE 3.8 mg/dL (0.6-1.3); POTASSIUM 3.6 mmol/L (3.5-5.1)
[2020-04-05 07:01] LABS: MAGNESIUM 1.8 mg/dL (1.8-2.4); PHOSPHORUS 4.2 mg/dL (2.5-4.9)
--- NOTE | 2020-04-05 07:30 | NUR ---
ENDORSED PT IN STABLE CONDITION TO AM NURSE FOR CONTINUITY OF CARE.
--- NOTE | 2020-04-05 07:31 | NUR ---
RECEIVED BEDSIDE REPORT FROM ASSISTANT CUSTOMER SERVICE MANAGER NURSE, PT STABLE, NO DISTRESS NOTED, IV TO R WRIST 22G PATENT INTACT, INFUSING WELL, IV TO R AC 20G, OCCLUDED, WILL REMOVE, PT ON ROOM AIR, NO SOB NOTED, INITIAL ASSESSMENT DONE, ALL SAFETY PRECAUTION MET, CALL LIGHT WITHIN REACH, WILL CONTINUE TO MONITOR.
[2020-04-05 08:00] VITALS: BP 135/79
[2020-04-05] MEDS: PANTOPRAZOLE 40 MG INJ VIAL IVP SCH (08:50)
[2020-04-05] MEDS: SEVELAMER CARBONATE 800 MG TAB PO SCH ×3 (08:50→17:19)
[2020-04-05] MEDS: PROPRANOLOL 20 MG TAB PO SCH ×3 (08:51→17:00)
[2020-04-05] MEDS: VIT-B COMP/VIT-C/FOLIC ACID 1 TAB PO SCH (08:51)
[2020-04-05] MEDS: LACTULOSE 20 GM/30 ML UDC PO SCH ×2 (08:51→21:58)
[2020-04-05] MEDS: CALCIUM CARB/VIT-D 500 MG/200 IU 1 TAB PO SCH ×2 (08:51→21:00)
[2020-04-05] MEDS: FERROUS SULFATE 325 MG TABEC PO SCH ×2 (08:51→21:58)
[2020-04-05] MEDS: RIFAXIMIN 550 MG TAB PO SCH ×2 (08:51→22:01)
--- NOTE | 2020-04-05 08:51 | NUR ---
DUE MEDICATION ADMINISTERD, PT TOLERATED WELL, NO DISTRESS NOTED, CALL LIGHT WITHIN REACH, WILL CONTINUE TO MONITOR.
[2020-04-05] MEDS: ACETAMINOPHEN 325 MG TAB PO PRN ×2 (09:40→23:15)
--- NOTE | 2020-04-05 09:40 | NUR ---
PT RESTING, NO DISTRESS NOTED, DUE MEDICATION ADMINISTERED, PT TOLERATED WELL, WILL CONTINUE TO MONITOR.
--- NOTE | 2020-04-05 10:00 | NUR ---
PT STATED HAVING SOB SATURATION 92%, NOTIFIED DR. HARSHAL DR. ORDERED TO GIVE PT 2LPM O2 VIA NC, DR WILL ORDER BREATHING TREATMENT.
[2020-04-05] MEDS ORDERED: ALBUTEROL SULFATE/IPRATROPIU 3 ML SOL IH PRN (10:05)
--- NOTE | 2020-04-05 11:01 | NUR ---
PT DID BM, BM WAS BLOODY DIARRHEA, DR. SANCHEZ NOTIFIED. AWARE. PT WENT BACK TO BED, NO DISTRESS NOTED, WILL CONTINUE TO MONITOR.
[2020-04-05 12:00] VITALS: BP 117/43
[2020-04-05] MEDS: OCTREOTIDE ACETATE 1.25 MG in NACL 0.9% 250 ML IV SCH ×2 (12:09→23:54)
--- NOTE | 2020-04-05 12:09 | NUR ---
DUE MEDICATION ADMINISTERED, PT TOLERATED WELL, WILL CONTINUE TO MONITOR.
[2020-04-05] MEDS: SENNA 8.6 MG TAB PO SCH ×2 (13:00→17:19)
--- NOTE | 2020-04-05 13:40 | NUR ---
DUE MEDICATION ADMINISTERED, PT TOLERATED WELL, NO DISTRESS NOTED, CALL LIGHT WITHIN REACH, WILL CONTINUE TO MONITOR.
[2020-04-05] MEDS ORDERED: SHARK OIL/PHENYLEPHRINE 60 GM TUBE TP PRN (13:50)
[2020-04-05] MEDS: ALBUTEROL SULFATE/IPRATROPIU 3 ML SOL IH SCH ×2 (13:50→19:00)
--- NOTE | 2020-04-05 15:10 | NUR ---
PT HAS AN EPISODE OF BLOOD CLOTS AND FRESH BLOOD COMING FROM THE RECTUM, NOTIFIED DR. ALEM DR. STATED UNDERSTANDING AND WILL ORDER CBC
[2020-04-05 16:00] VITALS: BP 103/43
[2020-04-05 16:17] LABS: HEMOGLOBIN 7.1 g/dL (12.0-16.0); WHITE BLOOD COUNT (AUTO) 4.1 K/uL (4.8-10.8)
[2020-04-05 16:43] LABS: BASOPHILS % (AUTO) 0.8 % (0.0-2.0); EOSINOPHILS # (AUTO) 0.2 K/uL (0-0.4); EOSINOPHILS % (AUTO) 5.7 % (0.0-4.0); HEMATOCRIT 21.1 % (36-48); LYMPHOCYTES # (AUTO) 0.2 K/uL (2.5-16.5); LYMPHOCYTES % (AUTO) 4.4 % (20.5-51.1); MEAN CORPUSCULAR HEMOGLOBIN 30 pg (27-31); MEAN CORPUSCULAR HGB CONC 33 g/dL (33-37); MEAN CORPUSCULAR VOLUME 91.1 fL (80-94); MONOCYTES # (AUTO) 0.5 K/uL (0.8-1.0); MONOCYTES % (AUTO) 11.9 % (1.7-9.3); NEUTROPHILS # (AUTO) 3.2 K/uL (1.8-7.7); NEUTROPHILS % (AUTO) 77.2 % (42.2-75.2); PLATELET COUNT (AUTO) 45 K/uL (140-450); RED BLOOD CELL COUNT(AUTO) 2.32 MIL/uL (4.20-5.40); RED CELL DISTRIBUTION WIDTH 16.8 % (11.6-13.7)
--- NOTE | 2020-04-05 17:00 | NUR ---
PT SIGNED CONSENT FOR COLONOSCOPY TRANSLATED BY CUFF STITCHER SID [id number], THROUGH THE CUFF STITCHER PHONE. PT RESTING, WILL CONTINUE TO MONITOR.
--- NOTE | 2020-04-05 19:20 | NUR ---
ENDORSED PT TO ASSOCIATE PROGRAMMER NURSE PAMELA FOR CONTINUOUS OF CARE.
--- NOTE | 2020-04-05 19:20 | NUR ---
RECEIVED REPORT FORM MARLY BENTLEY DAYSHIFT NURSE AT BEDSIDE OR CONTINUITY OF CARE, PT IN STABLE CONDITION.
[2020-04-05 20:00] VITALS: BP 107/46
--- NOTE | 2020-04-05 20:00 | NUR ---
PT IN BED AOX3 LIBERIAN SPEAKING WITH IV SITES ON RIGHT AC WHICIH IS OCCLUDED AND RIGHT HAND WHICH WORKS BUT IS LEAKING. ORDERED IV FLUIDS RUNNING AT 20MLS/HR, PT IS CONTINENT WITH EPISODES OF INCONTINENCE. V/S FOLLOWS: T 98.9 P 59 R 18 B/P 107/46 02 97% WITH 2 LITERS VIA N/C. ALL FALLS PRECAUTIONS IN PLACE,
--- NOTE | 2020-04-05 21:00 | NUR ---
PT FINGERSTICK IS 202 PT GIVEN 4 UNITS OF HUMALOG COVERAGE PER S/S. PT ALSO GIVEN ALL DUE PO MEDS EDUCATION REGARDING MEDICATION AND PURPOSES PROVIDED AT BEDSIDE, INCLUDING SIDE EFFECTS. ALL REQUESTED NEEDS ATTENDED BY STAFF. AND ALL FALLS PROTOCOL IN PLACE.
[2020-04-05] MEDS: GABAPENTIN 100 MG CAP PO SCH (21:59)
[2020-04-05] MEDS: POLYETHYLENE GLYCOL 17 GM/PKT PO SCH (21:59)
[2020-04-05] MEDS: INSULIN LANTUS 100 UNITS/ML 10 ML VIAL SUBQ SCH (22:16)
--- NOTE | 2020-04-05 23:30 | NUR ---
PACKED RED BLOOD CELLS READY AND PICKED UP PT RAC IV WAS REMOVED DUE TO OCCLUSION. RIGHT HAND 20 GUAGE IV WAS NOTED LEAKING AND REMOVED. NEW IV SITE TO PROVIDED TRANSFUSION WAS UNABLE TO BE ESTABLISHED. CONTACTED ER NURSE TO ASSIST. ER NURSE TRIED X5 TIMES. CHARGE NURSE MADE AWARE AND ALSO TRIED X3. PT DECLINED TO BE POKED FOR ANOTHER TRY AT IV SITE. RED BLOOD CELLS WERE RETURNED.
[2020-04-06] VITALS: BP_SYST 107; BP_SYST 93; BP_DIAS 46; BP_DIAS 51
--- NOTE | 2020-04-06 | NUR ---
MIDNIGHT V/S FOLLOWS: T 98.4 P 61 R 18 B/P 101/50 02 97% ON 2 LITERS VIA N/C. ALL ORDERED PRECAUTIONS IN PLACE. MADE AWARE THAT ASSIGNED RN UNABLE TO TRANSFUSE BLOOD DUE TO THE INABLITY OF STAFF TO ESTABLISH WORKING IV SITE.
[2020-04-06 04:00] VITALS: BP 111/48
--- NOTE | 2020-04-06 04:00 | NUR ---
T 97.5 P 83 R 18 B/P 121/47 02 95% ON 2 LITERS VIA N/C.
--- NOTE | 2020-04-06 04:30 | NUR ---
PT HAD 2 LARGE SOFT FORMED BM 'S NO BLEEDING NOTED, PT STILL NOT PREPPED ENOUGH FOR A COLONOSCOPY, RESIDENT MD'S MADE AWARE.
--- NOTE | 2020-04-06 05:53 | NUR ---
PT FINGERSTICK IS 83, PT CONTINUES TO USE THE TOILET FOR COLONOSCOPY PREP.
[2020-04-06] MEDS: LEVOTHYROXINE 0.075 MG TAB PO SCH (06:10)
[2020-04-06] MEDS: LANSOPRAZOLE 30 MG CAPDR PO SCH (06:10)
[2020-04-06] MEDS: BLOOD GLUCOSE MONITORING 1 DEV DEV FS SCH ×4 (06:11→21:20)
--- NOTE | 2020-04-06 06:11 | NUR ---
AM MEDS HELD DUE TO NPO STATUS, PT CONTINUE STO HAVE SOFT FORMED BM'S.
[2020-04-06 06:30] LABS: EOSINOPHILS # (AUTO) 0.4 K/uL (0-0.4); EOSINOPHILS % (AUTO) 8.1 % (0.0-4.0); HEMATOCRIT 25.1 % (36-48); HEMOGLOBIN 8.2 g/dL (12.0-16.0); LYMPHOCYTES # (AUTO) 0.4 K/uL (2.5-16.5); LYMPHOCYTES % (AUTO) 8.7 % (20.5-51.1); MEAN CORPUSCULAR HEMOGLOBIN 30 pg (27-31); MEAN CORPUSCULAR HGB CONC 33 g/dL (33-37); MEAN CORPUSCULAR VOLUME 91.9 fL (80-94); MONOCYTES # (AUTO) 0.4 K/uL (0.8-1.0); MONOCYTES % (AUTO) 8.4 % (1.7-9.3); NEUTROPHILS # (AUTO) 3.3 K/uL (1.8-7.7); NEUTROPHILS % (AUTO) 73.8 % (42.2-75.2); PLATELET COUNT (AUTO) 57 K/uL (140-450); RED BLOOD CELL COUNT(AUTO) 2.74 MIL/uL (4.20-5.40); RED CELL DISTRIBUTION WIDTH 17.2 % (11.6-13.7); WHITE BLOOD COUNT (AUTO) 4.5 K/uL (4.8-10.8)
[2020-04-06 06:54] LABS: PHOSPHORUS 4.8 mg/dL (2.5-4.9)
[2020-04-06 06:55] LABS: PROTHROMBIN TIME 11.5 secs (10.8-13.4)
[2020-04-06 06:56] LABS: ANION GAP 15.5 (8-16); CARBON DIOXIDE 26.3 mmol/L (21-32); POTASSIUM 3.8 mmol/L (3.5-5.1)
--- NOTE | 2020-04-06 07:18 | NUR ---
RECEIVED REPORT FROM SHIRT FINISHER RN FOR CONTINUITY OF CARE. PT IS AAOX4, COOPERATIVE AND ABLE TO MAKE NEEDS KNOWN. PT ON RA. SKIN INTACT. NO IV ACCESS. PER SHIRT FINISHER, MANY TRIES BUT NO SUCCESS. MD AWARE OF PT NEED FOR PICC LINE. DISCUSSED POC WITH PT AND PT VERBALIZED UNDERSTANDING. ALL SAFETY MEASURES IN PLACE. BED IN LOW POSITION, CALL LIGHT WITHIN REACH. WILL ROUND FREQUENTLY ON PT THROUGHOUT THE SHIFT.
[2020-04-06] MEDS: ALBUTEROL SULFATE/IPRATROPIU 3 ML SOL IH SCH ×3 (07:50→19:37)
[2020-04-06 08:00] VITALS: BP 141/59
[2020-04-06 08:30] LABS: CREATININE 4.8 mg/dL (0.6-1.3)
[2020-04-06] MEDS: POLYETHYLENE GLYCOL 17 GM/PKT PO SCH ×4 (08:43→21:12)
[2020-04-06] MEDS: PROPRANOLOL 20 MG TAB PO SCH ×3 (08:43→16:49)
[2020-04-06] MEDS: LACTULOSE 20 GM/30 ML UDC PO SCH ×3 (08:43→17:29)
[2020-04-06] MEDS: SEVELAMER CARBONATE 800 MG TAB PO SCH ×3 (08:43→17:29)
[2020-04-06] MEDS: FERROUS SULFATE 325 MG TABEC PO SCH ×2 (08:43→21:12)
[2020-04-06] MEDS: SENNA 8.6 MG TAB PO SCH ×3 (08:44→17:29)
[2020-04-06] MEDS: CALCIUM CARB/VIT-D 500 MG/200 IU 1 TAB PO SCH ×2 (08:44→21:11)
[2020-04-06] MEDS: RIFAXIMIN 550 MG TAB PO SCH ×2 (08:44→21:12)
[2020-04-06] MEDS: VIT-B COMP/VIT-C/FOLIC ACID 1 TAB PO SCH (08:44)
--- NOTE | 2020-04-06 09:18 | NUR ---
ADMIN MORNING MEDS. PT TOLERATED WELL. ALL NEEDS CURRENTLY MET.
[2020-04-06] MEDS: ACETAMINOPHEN 325 MG TAB PO PRN ×2 (10:58→22:13)
--- NOTE | 2020-04-06 11:20 | NUR ---
PT RESTING IN BED.
[2020-04-06 12:00] VITALS: BP 121/49
[2020-04-06] MEDS: OCTREOTIDE ACETATE 1.25 MG in NACL 0.9% 250 ML IV SCH (12:43)
[2020-04-06] MEDS ORDERED: MIDODRINE 5 MG TAB PO SCH (13:00)
--- NOTE | 2020-04-06 13:13 | NUR ---
PT HAVING HD. ALL NEEDS MET.
[2020-04-06] MEDS ORDERED: MAGNESIUM CITRATE 300 ML BTL PO SCH (14:00)
--- NOTE | 2020-04-06 15:20 | NUR ---
PT WATCHING TV IN BED.
--- NOTE | 2020-04-06 15:45 | NUR ---
04/06/20 RD FOLLOW UP COMPLETED PLEASE REFER TO NUTRITION ASSESSMENT UNDER CARE ACTIVITY FOR ESTIMATED NUTRITIONAL NEEDS. 1. CONTINUE CLEAR DIET TOLERATED 2. ADVANCE TO [facility] 60GM RENAL PUREE WHEN MEDICALLY CLEARED 3. RECOMMEND NEPRO BID 4. RD TO FOLLOW-UP 2-3 DAYS, HIGH RISK YAJAIRA MEADE, RD
[2020-04-06 16:00] VITALS: BP 127/52
[2020-04-06] MEDS: INSULIN LISPRO SLIDING SCALE 100 UNITS/ML VIAL SUBQ PRN ×2 (17:30→21:20)
--- NOTE | 2020-04-06 17:45 | NUR ---
PT HAVING DINNER. ALL NEEDS MET.
--- NOTE | 2020-04-06 19:00 | NUR ---
RECEIVED BEDSIDE REPORT FROM DAY SHIFT NURSE. PATIENT IS AWAKE AND COOPERATIVE. RESPIRATION EVEN UNLABORED ON ROOM AIR. NO DISTRESS NOTED. SKIN IS WARM AND DRY. RIGHT UPPER ARM MIDLINE NOTED. LEFT AV SHUNT NOTED. PLAN OF CARE WAS DISCUSSED. ALL SAFETY MEASURES IN PLACE. BED IS AT LOW POSITION. CALL LIGHT WITHIN REACH AND VERBALIZES ITS USE. WILL CONTINUE TO MONITOR.
--- NOTE | 2020-04-06 19:01 | NUR ---
WILL ENDORSE PT TO CALENDER RUNNER FOR CONTINUITY OF CARE. PT IN STABLE CONDITION AT THIS TIME.
[2020-04-06 19:42] LABS: BASOPHILS % (AUTO) 0.8 % (0.0-2.0); EOSINOPHILS # (AUTO) 0.3 K/uL (0-0.4); EOSINOPHILS % (AUTO) 8.2 % (0.0-4.0); HEMATOCRIT 25.8 % (36-48); HEMOGLOBIN 8.6 g/dL (12.0-16.0); LYMPHOCYTES # (AUTO) 0.2 K/uL (2.5-16.5); LYMPHOCYTES % (AUTO) 5.3 % (20.5-51.1); MEAN CORPUSCULAR HEMOGLOBIN 30 pg (27-31); MEAN CORPUSCULAR HGB CONC 33 g/dL (33-37); MEAN CORPUSCULAR VOLUME 91.2 fL (80-94); MONOCYTES # (AUTO) 0.4 K/uL (0.8-1.0); MONOCYTES % (AUTO) 9.6 % (1.7-9.3); NEUTROPHILS # (AUTO) 3.1 K/uL (1.8-7.7); NEUTROPHILS % (AUTO) 76.1 % (42.2-75.2); PLATELET COUNT (AUTO) 39 K/uL (140-450); RED BLOOD CELL COUNT(AUTO) 2.83 MIL/uL (4.20-5.40); RED CELL DISTRIBUTION WIDTH 16.2 % (11.6-13.7); WHITE BLOOD COUNT (AUTO) 4.1 K/uL (4.8-10.8)
[2020-04-06 20:00] VITALS: BP 120/49
--- NOTE | 2020-04-06 20:00 | NUR ---
INITIAL ASSESSMENT DONE. VITALS WERE TAKEN. PATIENT IN STABLE CONDITION. WILL CONTINUE TO MONITOR.
[2020-04-06] MEDS: GABAPENTIN 100 MG CAP PO SCH (21:12)
[2020-04-06] MEDS: INSULIN LANTUS 100 UNITS/ML 10 ML VIAL SUBQ SCH (21:17)
--- NOTE | 2020-04-06 21:20 | NUR ---
ALL SCHEDULED MEDS WERE GIVEN PER ORDER. NO ASE NOTED. WILL CONTINUE TO MONITOR
--- NOTE | 2020-04-06 22:13 | NUR ---
PATIENT COMPLAINED OF HEADACHE 5/10. PRN TYLENOL ADMINISTERED PER ORDER. WILL CONTINUE TO MONITOR.
--- NOTE | 2020-04-06 23:27 | NUR ---
ENDORSE PATIENT TO [facility] FOR CONTINUITY OF CARE. PATIENT IN STABLE CONDITION.
--- NOTE | 2020-04-06 23:30 | NUR ---
REPORT RECEIVED FROM [facility] NURSE. PT IS ALERT AND ORIENTED. PT HAS MIDLINE ACCESS ON THE RIGHT ARM. FISTULA ON THE LEFT UPPER ARM WITH POSITIVE BRUIT AND THRILL. SR TO SB ON THE MONITOR. SKIN WARM, DRY AND INTACT. NO DISTRESS OBSERVED. RESPIRATION EVEN AND UNLABORED. WILL CONTINUE TO MONITOR.
[2020-04-07] VITALS: BP 98/48
--- NOTE | 2020-04-07 02:13 | NUR ---
PT HAD INTERMITTENT CONFUSION. PT WAS TRYING TO MOVED OUT OF BED BY HERSELF. CALLED DR. GARNER FOR RESTRAINT ODER FOR SAFETY PRECAUTIONS. SOFT WRIST APPLIED TO BILATERAL WRIST. WILL CONTINUE TO MONITOR.
[2020-04-07 04:00] VITALS: BP 100/52
[2020-04-07] MEDS: LANSOPRAZOLE 30 MG CAPDR PO SCH (06:05)
[2020-04-07] MEDS: LEVOTHYROXINE 0.075 MG TAB PO SCH (06:05)
--- NOTE | 2020-04-07 06:07 | NUR ---
PT BLOOD GLUCOSE 25 AND 20 FOR THE REPEAT CHECK. ABBOJECT D50% GIVEN ORDERED FOR BLOOD GLUCOSE LESS THAN 70. WILL RECHECK AFTER 15 MINS.
--- NOTE | 2020-04-07 06:20 | NUR ---
LATEST BS: 187, PT IS MORE ALERT NOW AND ABLE TO MAKE NEEDS KNOWN. WILL CONTINUE TO MONITOR.
--- NOTE | 2020-04-07 07:10 | NUR ---
RECEIVED PATIENT FROM BLUEPRINT DEVELOPER NURSE. PT IS CURRENTLY LAYING IN BED ASLEEP WITH NO SIGNS OF DISTRESS AT THIS TIME. RESPIRATIONS ARE EVEN AND UNLABORED ON ROOM AIR WITH NO DIFFICULTIES BREATHING. SKIN IS INTACT WITH IV ASYMPTOMATIC, PATENT. BED IS IN LOW SEMI-FOWLERS POSITION, SAFETY MEASURES IN PLACE AND WILL CONTINUE TO MONITOR.
--- NOTE | 2020-04-07 07:26 | NUR ---
ENDORSED PT TO DAY SHIFT RN FOR CONTINUITY OF CARE.
[2020-04-07 07:44] LABS: BASOPHILS # (AUTO) 0.1 K/uL (0.00-0.22); BASOPHILS % (AUTO) 1.1 % (0.0-2.0); EOSINOPHILS # (AUTO) 0.4 K/uL (0-0.4); EOSINOPHILS % (AUTO) 6.9 % (0.0-4.0); HEMATOCRIT 30.8 % (36-48); HEMOGLOBIN 10.3 g/dL (12.0-16.0); LYMPHOCYTES # (AUTO) 0.3 K/uL (2.5-16.5); LYMPHOCYTES % (AUTO) 4.9 % (20.5-51.1); MEAN CORPUSCULAR HEMOGLOBIN 31 pg (27-31); MEAN CORPUSCULAR HGB CONC 34 g/dL (33-37); MONOCYTES # (AUTO) 0.6 K/uL (0.8-1.0); MONOCYTES % (AUTO) 10.2 % (1.7-9.3); NEUTROPHILS # (AUTO) 4.5 K/uL (1.8-7.7); NEUTROPHILS % (AUTO) 76.9 % (42.2-75.2); PLATELET COUNT (AUTO) 65 K/uL (140-450); RED BLOOD CELL COUNT(AUTO) 3.39 MIL/uL (4.20-5.40); RED CELL DISTRIBUTION WIDTH 16.3 % (11.6-13.7); WHITE BLOOD COUNT (AUTO) 5.8 K/uL (4.8-10.8)
[2020-04-07 07:53] LABS: CARBON DIOXIDE 25.2 mmol/L (21-32); POTASSIUM 3.2 mmol/L (3.5-5.1)
[2020-04-07 07:54] LABS: MAGNESIUM 2.1 mg/dL (1.8-2.4); PHOSPHORUS 4.6 mg/dL (2.5-4.9)
[2020-04-07 08:00] VITALS: BP 96/44
[2020-04-07] MEDS: SEVELAMER CARBONATE 800 MG TAB PO SCH ×3 (08:00→17:57)
[2020-04-07] MEDS: ALBUTEROL SULFATE/IPRATROPIU 3 ML SOL IH SCH ×3 (08:29→21:04)
[2020-04-07 08:34] LABS: CREATININE 4.1 mg/dL (0.6-1.3)
[2020-04-07] MEDS: BLOOD GLUCOSE MONITORING 1 DEV DEV FS SCH ×4 (08:40→21:29)
[2020-04-07] MEDS: CALCIUM CARB/VIT-D 500 MG/200 IU 1 TAB PO SCH ×2 (09:00→21:22)
[2020-04-07] MEDS: RIFAXIMIN 550 MG TAB PO SCH ×2 (09:00→21:22)
[2020-04-07] MEDS: FERROUS SULFATE 325 MG TABEC PO SCH ×2 (09:00→21:22)
[2020-04-07] MEDS: VIT-B COMP/VIT-C/FOLIC ACID 1 TAB PO SCH (09:00)
--- NOTE | 2020-04-07 09:00 | NUR ---
PT IS CURRENTLY SLEEPING AND DOES NOT WANT TO BE BOTHERED AT THIS TIME. SAFETY MEASURES IN PLACE AND WILL CONTINUE TO MONITOR.
[2020-04-07] MEDS ORDERED: MIDAZOLAM 2 MG/2 ML VIAL ONE (10:04)
[2020-04-07] MEDS ORDERED: fentaNYL 0.05 MG/ML VIAL ONE (10:04)
[2020-04-07] MEDS: LACTULOSE 20 GM/30 ML UDC PO SCH ×2 (10:10→21:23)
--- NOTE | 2020-04-07 10:10 | NUR ---
OR NURSE DIANE CAME TO TAKE PATIENT TO COLONOSCOPY. PT STATES THAT SHE IS READY TO GO AND HAS NO COMPLAINTS AT THIS TIME OR SHOW SIGNS OF DISTRESS.
[2020-04-07] MEDS ORDERED: ATROPINE 1 MG/10 ML SYR IVP ONE (10:20)
[2020-04-07] MEDS: PROPRANOLOL 20 MG TAB PO SCH ×2 (10:40→21:00)
--- NOTE | 2020-04-07 11:00 | NUR ---
PT HAS BEEN BROUGHT BACK TO UNIT. COLONOSCOPY HAS BEEN COMPLETED AND FURTHER PLAN OF CARE HAS BEEN DISCUSSED WITH FAMILY. PT IS CURRENTLY SLEEPING BUT IS EASILY ABLE TO BE AROUSED. SAFETY MEASURES IN PLACE AND WILL CONTINUE TO MONITOR.
[2020-04-07] MEDS ORDERED: fentaNYL 0.05 MG/ML VIAL IVP ONE (11:10)
[2020-04-07] MEDS ORDERED: MIDAZOLAM 2 MG/2 ML VIAL IVP ONE (11:10)
--- NOTE | 2020-04-07 11:43 | NUR ---
PTS BLOOD GLUCOSE IS CURRENTLY 93 THEREFORE NO INSULIN COVERAGE IS NEEDED AT THIS TIME. PT IS CURRENTLY BEING CHANGED AND TOLERATING CHANGE WELL. NO SIGNS OF DISTRESS OR COMPLAINTS OF PAIN AT THIS TIME. SAFETY MEASURES IN PLACE AND WILL CONTINUE TO MONITOR.
[2020-04-07 12:00] VITALS: BP 99/50
[2020-04-07] MEDS ORDERED: POTASSIUM CHLORIDE 10 MEQ TABER PO SCH (12:00)
--- NOTE | 2020-04-07 12:40 | NUR ---
PT HAS RECEIVED LUNCH TRAY AND IS EATING AT BEDSIDE WITH NO SIGNS OF DISTRESS. PT STATED THAT SHE WANTS TO FEED HERSELF. SAFETY MEASURES IN PLACE AND WILL CONTINUE TO MONITOR.
--- NOTE | 2020-04-07 14:15 | NUR ---
PT IS CURRENTLY RECEIVING A BREATHING TREATMENT AND TOLERATING WELL. PT DOES NOT COMPLAIN OF ANY PAIN AT THIS TIME. SAFETY MEASURES IN PLACE AND WILL CONTINUE TO MONITOR.
[2020-04-07] MEDS: ACETAMINOPHEN 325 MG TAB PO PRN (14:58)
[2020-04-07] MEDS ORDERED: CRUSHER, PILL MC ONE (15:08)
--- NOTE | 2020-04-07 15:10 | NUR ---
ADMINISTERED MEDICATIONS PER ORDER AND TOLERATED WELL. PT STATES THAT WANTS HER MIDLINE TAKEN OUT BECAUSE SHE IS IN PAIN. ADMINISTERED TYLENOL FOR PAIN IN ARM REQUESTED. SAFETY MEASURES IN PLACE AND WILL CONTINUE TO MONITOR.
[2020-04-07 16:00] VITALS: BP 126/53
[2020-04-07 17:39] LABS: BASOPHILS # (AUTO) 0.1 K/uL (0.00-0.22); BASOPHILS % (AUTO) 1.9 % (0.0-2.0); EOSINOPHILS # (AUTO) 0.1 K/uL (0-0.4); EOSINOPHILS % (AUTO) 3.7 % (0.0-4.0); HEMATOCRIT 29.6 % (36-48); HEMOGLOBIN 9.7 g/dL (12.0-16.0); LYMPHOCYTES # (AUTO) 0.2 K/uL (2.5-16.5); LYMPHOCYTES % (AUTO) 5.8 % (20.5-51.1); MEAN CORPUSCULAR HEMOGLOBIN 30 pg (27-31); MEAN CORPUSCULAR HGB CONC 33 g/dL (33-37); MEAN CORPUSCULAR VOLUME 91.6 fL (80-94); MONOCYTES # (AUTO) 0.3 K/uL (0.8-1.0); MONOCYTES % (AUTO) 7.6 % (1.7-9.3); PLATELET COUNT (AUTO) 37 K/uL (140-450); RED BLOOD CELL COUNT(AUTO) 3.23 MIL/uL (4.20-5.40); RED CELL DISTRIBUTION WIDTH 17.1 % (11.6-13.7); WHITE BLOOD COUNT (AUTO) 3.7 K/uL (4.8-10.8)
--- NOTE | 2020-04-07 17:59 | NUR ---
ADMINISTERED MEDICATIONS PER ORDER AND TOLERATED WELL. ADMINISTERED INSULIN PER ORDER PARAMETERS. PT IS CURRENTLY SLEEPING AND DOES NOT WANT TO BE BOTHERED AT THIS TIME. SAFETY MEASURES IN PLACE AND WILL CONTINUE TO MONITOR.
[2020-04-07] MEDS: INSULIN LISPRO SLIDING SCALE 100 UNITS/ML VIAL SUBQ PRN ×2 (18:03→20:18)
[2020-04-07 18:04] LABS: ANION GAP 15.3 (8-16); CARBON DIOXIDE 24.5 mmol/L (21-32); POTASSIUM 3.8 mmol/L (3.5-5.1)
[2020-04-07 18:09] LABS: CREATININE 4.3 mg/dL (0.6-1.3)
--- NOTE | 2020-04-07 18:37 | NUR ---
PT IS CURRENTLY EATING DINNER AT BEDSIDE WITH NO SIGNS OF DISTRESS AT THIS TIME. SAFETY MEASURES IN PLACE AND WILL CONTINUE TO MONITOR PLAN OF CARE, WILL ENDORSE TO FLORAL MERCHANDISER NURSE FOR CONTINUITY OF CARE.
--- NOTE | 2020-04-07 19:00 | NUR ---
RECEIVED PATIENT IN STABLE CONDITION FROM AM SHIFT NURSE FOR CONTINUITY OF CARE. PATIENT EATING AT THIS TIME. RESPIRATIONS EVEN, UNLABORED. SKIN WARM, DRY. RIGHT UPPER ARM MIDLINE PATENT/INTACT. LEFT ARM FISTULA FOR DIALYSIS NOTED. NO C/O PAIN. NO S/S ACUTE DISTRESS. SAFETY PRECAUTIONS IN PLACE. CALL LIGHT WITHIN REACH.
[2020-04-07 20:00] VITALS: BP 111/46
[2020-04-07] MEDS: INSULIN LANTUS 100 UNITS/ML 10 ML VIAL SUBQ SCH (20:16)
--- NOTE | 2020-04-07 21:00 | NUR ---
PATIENT AWAKE AND IN STABLE CONDITION. NO C/O PAIN. NO S/S ACUTE DISTRESS. CALL LIGHT WITHIN REACH. SAFETY PRECAUTIONS IN PLACE.
--- NOTE | 2020-04-07 21:09 | NUR ---
EMAR MARKED ADMINISTERED AND SCANNED PT THEN REFUSED WHEN I TRIED TO GIVE HER BREATHING Tx ([id number]) PT IS REFUSING BREATHING Tx FOR DURATION OF VISIT PER PT DR GARNER WAS INFORMED
--- NOTE | 2020-04-07 23:00 | NUR ---
PATIENT RESTING COMFORTABLY IN BED. NO C/O PAIN. NO S/S ACUTE DISTRESS. CALL LIGHT WITHIN REACH. SAFETY PRECAUTIONS IN PLACE.
[2020-04-08] VITALS: BP 105/39
--- NOTE | 2020-04-08 02:30 | NUR ---
PATIENT WATCHING TV. NO C/O PAIN. NO S/S ACUTE DISTRESS. CALL LIGHT WITHIN REACH.
[2020-04-08 04:00] VITALS: BP 129/49
[2020-04-08] MEDS ORDERED: NACL 0.9% 250 ML IV SCH (04:20)
--- NOTE | 2020-04-08 05:10 | NUR ---
PATIENT'S BLOOD PRESSURE WAS 114/33. MD INFORMED WITH ORDER FOR NS BOLUS 250 ML. ADMINISTERED ORDERED. BP NOW 129/49. PATIENT IN NO DISTRESS.
[2020-04-08] MEDS: LANSOPRAZOLE 30 MG CAPDR PO SCH (06:24)
[2020-04-08] MEDS: LEVOTHYROXINE 0.075 MG TAB PO SCH (06:24)
[2020-04-08] MEDS: BLOOD GLUCOSE MONITORING 1 DEV DEV FS SCH ×4 (06:57→21:00)
--- NOTE | 2020-04-08 07:00 | NUR ---
RECEIVED PATIENT IN STABLE CONDITION FROM ATHLETICS TEACHER RN, VANIA, FOR CONTINUITY OF CARE. PATIENT AWAKE AND IN BED. RESPIRATIONS EVEN, UNLABORED. SKIN WARM, DRY. RIGHT UPPER ARM MIDLINE PATENT/INTACT AND ON SL. LEFT ARM FISTULA FOR DIALYSIS NOTED. NO C/O PAIN. NO S/S ACUTE DISTRESS. SAFETY PRECAUTIONS IN PLACE. POC DISCUSSED. CALL LIGHT WITHIN REACH. WILL CONTINUE TO MONITOR.
[2020-04-08 08:00] VITALS: BP 139/68
[2020-04-08] MEDS: CALCIUM CARB/VIT-D 500 MG/200 IU 1 TAB PO SCH ×2 (08:09→21:35)
[2020-04-08] MEDS: PROPRANOLOL 20 MG TAB PO SCH ×3 (08:11→22:00)
[2020-04-08] MEDS: SEVELAMER CARBONATE 800 MG TAB PO SCH ×3 (08:12→16:00)
--- NOTE | 2020-04-08 08:12 | NUR ---
MORNING MEDICATIONS GIVEN. NO SIGNS OF DISTRESS NOTED. PATIENT INSISTS TO DRINK LACTULOSE AFTER BREAKFAST. V/S TAKEN AND WNL. WILL CONTINUE TO MONITOR.
[2020-04-08] MEDS: LACTULOSE 20 GM/30 ML UDC PO SCH ×3 (08:13→21:35)
[2020-04-08] MEDS: RIFAXIMIN 550 MG TAB PO SCH ×2 (08:13→21:35)
[2020-04-08] MEDS: FERROUS SULFATE 325 MG TABEC PO SCH ×2 (08:14→21:36)
[2020-04-08] MEDS: VIT-B COMP/VIT-C/FOLIC ACID 1 TAB PO SCH (08:15)
--- NOTE | 2020-04-08 10:00 | NUR ---
RETURNED TO PATIENT ROOM AND LACTULOSE DOSE IS STILL NOT TAKEN. PATIENT IS NON-COMPLIANT IN DRINKING THE MEDICATION, EXPLAINED RISK AND BENEFIT TO THE PATIENT BUT PATIENT STILL REFUSES TO TAKE LACTULOSE STATING INCREASED IN [place]. WILL UNDO ADMINISTRATION AND RETURN LACTULOSE DOSE. WILL CONTINUE TO MONITOR.
--- NOTE | 2020-04-08 11:40 | NUR ---
PATIENT COMPLAINS OF SHORTNESS OF BREATH, SAO2 AT 100%. PLACED PATIENT TO 2L O2 FOR COMFORT, NO SIGNS OF DISTRESS NOTED. WILL CONTINUE TO MONITOR.
[2020-04-08 12:00] VITALS: BP 128/68
--- NOTE | 2020-04-08 12:35 | NUR ---
NO INSULIN COVERAGE NEEDED FOR BLOOD GLUCOSE OF 139. ATTEMPTED TO GIVEN AFTERNOON MEDICATION, BUT PATIENT CONTINUES TO REFUSE STATING SHE ONLY NEEDS TO DRINK WATER TO GET BETTER. PATIENT VERBALIZES NO PAIN. V/S TAKEN AND IS WNL. WILL CONTINUE TO MONITOR.
--- NOTE | 2020-04-08 14:28 | NUR ---
AWAKE AND ALERT VERBALLY RESPONSIVE STABLE GOOD CHEST RISE BREATHS SOUNDS CLEAR BILATERAL SATURATION 100% ON SUPPLEMENTAL OXYGEN AT 2 LPM VIA NC TITRATED FIO2 TO ROOM AIR PRESS DEPARTMENT MANAGER TO MONITOR AND NOTIFY JOHN/SHEREE
[2020-04-08 16:00] VITALS: BP 115/33
--- NOTE | 2020-04-08 16:00 | NUR ---
BLOOD GLUCOSE CHECK, 144, NO INSULIN COVERAGE TAKEN. AFTERNOON MEDICATIONS GIVEN. NO SIGNS OF DISTRESS NOTED. WILL CONTINUE TO MONITOR.
--- NOTE | 2020-04-08 18:00 | NUR ---
VICKIE LARA, BY THE BEDSIDE FOR TRANSLATION. PATIENT REFUSES TO TAKE ANY MEDICATIONS TO IMPROVE CHEST PAIN. CLAIMS TO HAVE TROUBLE BREATHING, SAO2 AT 99%, PATIENT WANTS TO HAVE O2 PLACED. EXPLAINED RISKS OF PLACING OXYGEN, PATIENT VERBALIZES UNDERSTANDING AND WISHES US TO LEAVE HER INSTEAD. WILL CONTINUE TO MONITOR.
--- NOTE | 2020-04-08 19:00 | NUR ---
ENDORSED TO CONSTRUCTION SUPERVISOR/CARPENTER RN FOR CONTINUITY OF CARE.
[2020-04-08 20:00] VITALS: BP 123/88
--- NOTE | 2020-04-08 21:55 | NUR ---
RECEIVED REPORT FROM AM SHIFT. PT SEEN AND ASSESSED. FOUND PT ON ROOM AIR WITH SPO2 OF 98%. DIMINISHED BREATH SOUNDS ON AUSCULTATION. NOTICED ADEQUATE BILATERAL CHEST RISE AND AND FALL. PT IS IN NO APPARENT RESPIRATORY DISTRESS AT THIS TIME AND NO C/O SOB. PRN TX NO INDICATED AT THIS TIME. WILL CONTINUE TO MONITOR PT.
--- NOTE | 2020-04-08 22:02 | NUR ---
INFORMED DR. GARNER THAT BP IS 123/88 HR 59, HOLD IT. WILL RETURN MEDS
[2020-04-08] MEDS: INSULIN LANTUS 100 UNITS/ML 10 ML VIAL SUBQ SCH (22:39)
[2020-04-08] MEDS: INSULIN LISPRO SLIDING SCALE 100 UNITS/ML VIAL SUBQ PRN (22:40)
--- NOTE | 2020-04-08 23:00 | NUR ---
PT TRYING TO SLEEPN PT ABLE TO TURN TO SIDE TO SIDE
[2020-04-09] VITALS: BP 131/92
--- NOTE | 2020-04-09 | NUR ---
PT HAD DIARRHEA X 1 EPISODE NON BLOODY, PT WAS GIVEN LACTULOSE EARLIER
--- NOTE | 2020-04-09 01:00 | NUR ---
PT CLEANED AND PLACED BACK ON BED; PT COMFORTABLE
[2020-04-09 04:00] VITALS: BP 130/93
--- NOTE | 2020-04-09 04:30 | NUR ---
NOTED THAT THE MIDLINE ON THE RIGHT ARM WAS BLEEDING; CLEANED AND CHANGED THE DRESSING.
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
--- NOTE | 2020-04-09 05:30 | NUR ---
DR. GARNER TRIED TO EXPLAIN TO PT AT BEDSIDE RE; BLOOD DRAW W/ [place]INNY SPEAKER AT BEDSIDE TO EXPLAIN TO PT. INSTEAD PATIENT SAID BAD WORDS" YOU MAY GO TO HELL" IN [place]. SHE SAID SHE WANTS TO TALK TO HER PRIMARY PHYSICIAN.
[2020-04-09] MEDS: LANSOPRAZOLE 30 MG CAPDR PO SCH (06:13)
[2020-04-09] MEDS: LEVOTHYROXINE 0.075 MG TAB PO SCH (06:13)
[2020-04-09] MEDS: BLOOD GLUCOSE MONITORING 1 DEV DEV FS SCH ×2 (06:17→11:50)
--- NOTE | 2020-04-09 06:44 | NUR ---
PT IS FOR DISCHARGE; PT AWAKE, ALERT ORIENTED X 4; AMBULATORY W/ STANBY ASSIST. PASHTO SLEAKING; DR. GARNER SAID TO LEAVE IT FOR NOW, RIGHT MIDLINE (R UPPER ARM) AND CHECK W/ AM SHIFT. WILL ENDORSE TO NEX SHIFT
--- NOTE | 2020-04-09 06:45 | NUR ---
RECEIVED REPORT FROM ELECTRONIC PUBLICATIONS SPECIALIST NURSE FERNANDO-SHEREE. PT RESTING IN BED, [id number] SPEAKING, ON ROOM AIR WITH RIGHT UPPER ARM MIDLINE DOUBLE LUMEN/SL. DISCUSSED PLAN OF CARE AND PT VERBALIZED UNDERSTANDING. PT CURRENTLY REFUSING TREATMENT AND WANTING TO BE DISCHARGED. MD AWARE. CALL LIGHT WITHIN REACH. NO S/S OF RESPIRATORY DISTRESS OR DISCOMFORT NOTED AT THIS TIME. WILL CONTINUE TO MONITOR.
[2020-04-09 08:00] VITALS: BP 113/64
[2020-04-09] MEDS: SEVELAMER CARBONATE 800 MG TAB PO SCH ×2 (08:00→12:00)
--- NOTE | 2020-04-09 08:00 | NUR ---
PT REFUSED MEDICATION RENVELA. EDUCATED PT ON MEDICATION AND PT VERBALIZED UNDERSTANDING HOWEVER CONTINUES TO REFUSE. CALL LIGHT WITHIN REACH. NO S/S OF RESPIRATORY DISTRESS OR DISCOMFORT NOTED AT THIS TIME. WILL CONTINUE TO MONITOR.
[2020-04-09] MEDS: FERROUS SULFATE 325 MG TABEC PO SCH (09:00)
[2020-04-09] MEDS: CALCIUM CARB/VIT-D 500 MG/200 IU 1 TAB PO SCH (09:00)
[2020-04-09] MEDS ORDERED: RIFA550T PO (09:00)
[2020-04-09] MEDS: RIFAXIMIN 550 MG TAB PO SCH (09:00)
[2020-04-09] MEDS ORDERED: PHEN28OI6 TP (09:00)
[2020-04-09] MEDS ORDERED: LANS30EC68 PO (09:00)
[2020-04-09] MEDS: VIT-B COMP/VIT-C/FOLIC ACID 1 TAB PO SCH (09:00)
[2020-04-09] MEDS ORDERED: EPOETIN ALFA 10,000 UNITS/ML VIAL SUBQ SCH (09:00)
[2020-04-09] MEDS ORDERED: SYN.075 PO (09:00)
[2020-04-09] MEDS: PROPRANOLOL 20 MG TAB PO SCH (09:00)
[2020-04-09] MEDS ORDERED: GLUC-805 FS (09:00)
[2020-04-09] MEDS: LACTULOSE 20 GM/30 ML UDC PO SCH (09:00)
[2020-04-09] MEDS ORDERED: PROP20TA29 PO (09:00)
[2020-04-09] MEDS ORDERED: LACT10SO11 PO (09:00)
--- NOTE | 2020-04-09 09:00 | NUR ---
PT REFUSING SCHEDULED MEDICATIONS. EDUCATED PT ON EACH AND EVERY MEDICATION HOWEVER PT CONTINUES TO REFUSE MEDICATIONS AND WANTING TO BE DISCHARGED. CALL LIGHT WITHIN REACH. NO S/S OF RESPIRATORY DISTRESS OR DISCOMFORT NOTED AT THIS TIME. WILL CONTINUE TO MONITOR.
--- NOTE | 2020-04-09 11:30 | NUR ---
BLOOD GLUCOSE 193- INSULIN COVERAGE NEEDED HOWEVER PT REFUSING INSULIN COVERAGE AND WANTING TO BE DISCHARGED. CALL LIGHT WITHIN REACH. NO S/S OF RESPIRATORY DISTRESS OR DISCOMFORT NOTED AT THIS TIME. WILL CONTINUE TO MONITOR.
[2020-04-09 12:08] VITALS: BP 113/64
--- NOTE | 2020-04-09 13:10 | NUR ---
PT SIGNED DISCHARGE PAPERWORK. MIDLINE REMOVED PER DR. FERRARA/CHUCKIE. PT TOLERATED WELL. REINFORCED WITH GAUZE AND KIRLIX. ID BANDS REMOVED. ASSISTED TO CHANGE INTO CLOTHES AND GATHERED ALL PERSONAL BELONGINGS. TOOK PT VIA WHEELCHAIR TO FRONT LOBBY WHERE DAUGHTER WAS WAITING FOR HER. PT IN STABLE CONDITION AT THIS TIME.
== END 2020-04-09 13:10 | disposition home or self-care (01) | DRG 368 ==
LOC: MED 13:19 → MIC 15:23 → EEVIPCON 15:23 → MTU 04-04 21:25
PROVIDERS: ADMIT General Practice; ATTEND General Practice
PROC: 06L38CZ Occlusion of Esophageal Vein with Extraluminal Device, Via Natural or Artificial Opening Endoscopic (ICD-10-PCS; 2020-04-03)
PROC: 30233P1 Transfusion of Nonautologous Frozen Red Cells into Peripheral Vein, Percutaneous Approach (ICD-10-PCS; principal; 2020-04-03 09:00)
PROC: 30233N1 Transfusion of Nonautologous Red Blood Cells into Peripheral Vein, Percutaneous Approach (ICD-10-PCS; 2020-04-04)
PROC: 0DJD8ZZ Inspection of Lower Intestinal Tract, Via Natural or Artificial Opening Endoscopic (ICD-10-PCS; 2020-04-07)
PROC: 05HY33Z Insertion of Infusion Device into Upper Vein, Percutaneous Approach (ICD-10-PCS; 2020-04-08)
DX: I85.11 Secondary esophageal varices with bleeding (principal); R57.8 Other shock; N18.6 End stage renal disease; E43 Unspecified severe protein-calorie malnutrition; N17.0 Acute kidney failure with tubular necrosis; I50.43 Acute on chronic combined systolic (congestive) and diastolic (congestive) heart failure; G93.41 Metabolic encephalopathy; K76.7 Hepatorenal syndrome; K76.6 Portal hypertension; R65.10 Systemic inflammatory response syndrome (SIRS) of non-infectious origin without acute organ dysfunction; D61.818 Other pancytopenia; D68.4 Acquired coagulation factor deficiency; E87.1 Hypo-osmolality and hyponatremia; I13.2 Hypertensive heart and chronic kidney disease with heart failure and with stage 5 chronic kidney disease, or end stage renal disease; I31.3 Pericardial effusion (noninflammatory); I42.9 Cardiomyopathy, unspecified; K62.5 Hemorrhage of anus and rectum; D68.59 Other primary thrombophilia; K70.30 Alcoholic cirrhosis of liver without ascites; K64.8 Other hemorrhoids; G90.8 Other disorders of autonomic nervous system; Z99.2 Dependence on renal dialysis; D64.9 Anemia, unspecified; D69.1 Qualitative platelet defects; D69.59 Other secondary thrombocytopenia; E03.9 Hypothyroidism, unspecified; E11.22 Type 2 diabetes mellitus with diabetic chronic kidney disease; E11.40 Type 2 diabetes mellitus with diabetic neuropathy, unspecified; E11.649 Type 2 diabetes mellitus with hypoglycemia without coma; E83.39 Other disorders of phosphorus metabolism; E83.42 Hypomagnesemia; E83.51 Hypocalcemia; E87.6 Hypokalemia; I86.8 Varicose veins of other specified sites; K31.89 Other diseases of stomach and duodenum; K59.00 Constipation, unspecified; K72.90 Hepatic failure, unspecified without coma; Z51.5 Encounter for palliative care; R16.1 Splenomegaly, not elsewhere classified; Z20.828 Contact with and (suspected) exposure to other viral communicable diseases; E11.69 Type 2 diabetes mellitus with other specified complication; Z68.24 Body mass index [BMI] 24.0-24.9, adult
CPT/HCPCS: 36415; 70450; 71045; 72125; 74018; 76705; 80048; 80053; 82140; 82150; 82550; 82607; 82728; 82746; 82948; 83036; 83540; 83605; 83615; 83690; 83735; 83880; 84100; 84443; 85025; 85045; 85610; 85730; 86886; 86900; 86901; 86920; 87040; 87081; 90935; 93308; 94640; 96361; 96365; 96368; 96375; 97110; 97112; 97116; 97161-GP; 97530; 99291; C1751; C9113; J0461; J0696; J1200; J1815; J2250; J2354; J2405; J3010; J3430; J3490; J7030; J7060; P9016; P9017; P9035; Q0092; U0003-CS